=== PATIENT | female | born 1980 | race Caucasian/White ===

== ENCOUNTER → 2017-01-13 | Outpatient (CLI) | payer OTHER ==
[2017-01-13 10:17] LABS: HEMATOCRIT 41.5 % (36.0-47.0); HEMOGLOBIN 14.1 g/dL (12.0-15.5); RED BLOOD COUNT 4.91 x10^6/uL (3.50-5.40); RED CELL DISTRIBUTION WIDTH 12.9 % (11.5-14.5)
[2017-01-13 10:21] LABS: WHITE BLOOD COUNT 5.4 x10^3/uL (4.0-11.0)
[2017-01-13 10:42] LABS: ALBUMIN 4.1 g/dL (3.4-5.0); ALBUMIN/GLOBULIN RATIO 1.2 (1.0-1.7); CALCIUM 9.3 mg/dL (8.5-10.1); CREATININE 0.8 mg/dL (0.6-1.0); GFR 80.3; TOTAL BILIRUBIN 0.5 mg/dL (0.2-1.0); TOTAL PROTEIN 7.5 g/dL (6.4-8.2)
[2017-01-13 10:46] LABS: CHOLESTEROL/HDL RATIO 4.3
[2017-01-13 10:54] LABS: FREE T4 0.95 ng/dL (0.76-1.46)
[2017-01-13 20:14] LABS: HEP A IGM ABDY Negative (Negative)
== END | disposition home or self-care (01) ==
LOC: LAB 09:57
PROVIDERS: ATTEND Nurse Practitioner Family
DX: Z13.228 Encounter for screening for other metabolic disorders (principal)
CPT/HCPCS: 36415; 80053; 80061; 80074; 83036; 84439; 84443; 85027; 86703

== ENCOUNTER → 2017-03-19 | Outpatient (CLI) | payer OTHER ==
[~2017-03-19] MED LIST: IOHEXOL 240 MG/ML 50ML VIAL. PO ONE; IOHEXOL 300 MG/ML 75 ML VIAL IV ONE
--- NOTE | 2017-03-19 13:36 | RAD ---
CT of the abdomen and pelvis with contrast, 03/19/2017: History: Abdominal pain Multidetector CT imaging was performed following oral and IV administration of contrast. The gallbladder is surgically absent. No hepatic abnormality is seen. The pancreas is unremarkable. The spleen is of normal size. The kidneys show no evidence of obstruction or a mass. The abdominal aorta is of normal caliber. No abdominal or pelvic adenopathy is seen. The uterus is unremarkable. There is a moderate amount of stool scattered throughout the colon. The appendix is visualized and shows no abnormality. The small bowel loops are unremarkable. No free air or significant free fluid is identified in the abdomen IMPRESSION: No acute abnormality is identified the abdomen or pelvis. PQRS Compliance Statement: One or more of the following individualized dose reduction techniques were utilized for this examination: 1. Automated exposure control 2. Adjustment of the mA and/or kV according to patient size 3. Use of iterative reconstruction technique
== END | disposition home or self-care (01) ==
LOC: CT 07:58
PROVIDERS: ATTEND Family Medicine
DX: R10.9 Unspecified abdominal pain (principal)
CPT/HCPCS: 74177; Q9966; Q9967

== ENCOUNTER 2017-04-09 09:07 | Emergency (ER) | payer OTHER ==
[~2017-04-09] VITALS: Ht 175.3 cm; Wt 85.3 kg
[2017-04-09 09:21] VITALS: BP 137/87
[2017-04-09] MEDS ORDERED: FAMO20TA5 PO (09:31)
[2017-04-09] MEDS ORDERED: SULF1TAB24 PO (09:31)
[2017-04-09] MEDS ORDERED: PRED50TA PO (09:31)
--- NOTE | 2017-04-09 09:31 | PHYS DOC ---
Past Medical History Past Medical History: No Pertinent History Past Surgical History: No Surgical History Alcohol Use: None Drug Use: None Adult General Chief Complaint Chief Complaint: INSECT BITE HPI HPI Patient is a 36 year old female with no significant medical history who presents with a wasp sting on the left upper extremity that happened on Thursday when she went to check her mail in the mailbox. Patient denies any anaphylactic reaction. Review of Systems Review of Systems Constitutional: Denies fever or chills [] Musculoskeletal: Denies back pain or joint pain [] Integument: a wasp sting on the left upper extremity Neurologic: Denies headache, focal weakness or sensory changes [] Endocrine: Denies polyuria or polydipsia [] Current Medications Current Medications Current Medications Medications (Trade) Dose Ordered Sig/Jeanie Start Time Stop Time Status Last Admin Dose Admin Dexamethasone Sodium Phosphate (Decadron) 10 mg 1X ONCE 04/09/17 10:00 04/09/17 10:01 Diphenhydramine HCl (Benadryl) 25 mg 1X ONCE 04/09/17 10:00 04/09/17 10:01 Diphtheria/ Tetanus/Acell Pertussis (Boostrix) 0.5 ml ONCE ONCE 04/09/17 10:00 04/09/17 10:01 Famotidine (Pepcid) 20 mg 1X ONCE 04/09/17 10:00 04/09/17 10:01 Allergies Allergies Allergies Coded Allergies Type Severity Reaction Last Updated Verified No Known Drug Allergies 03/19/17 No Physical Exam Physical Exam Constitutional: Well developed, well nourished, no acute distress, non-toxic appearance. [] Skin: Left medial biceps with an area of mild erythema consistent with a insect sting. No drainage from the area. No warmth from the area. Back: No tenderness, no CVA tenderness. [] Extremities: No tenderness, no cyanosis, no clubbing, ROM intact, no edema. [] Neurologic: Alert and oriented X 3, normal motor function, normal sensory function, no focal deficits noted. [] Psychologic: Affect normal, judgement normal, mood normal. [] Current Patient Data Vital Signs Vital Signs Date Time Temp Pulse Resp B/P (MAP) Pulse Ox O2 Delivery O2 Flow Rate FiO2 04/09/17 09:21 98.0 77 18 99 Room Air 98.0 EKG EKG [] Radiology/Procedures Radiology/Procedures [] Course & Med Decision Making Course & Med Decision Making Pertinent Labs and Imaging studies reviewed. (See chart for details) Patient is in the ED with a wasp sting on the left upper extremity that happened 4 days ago. Patient was given Decadron, Benadryl, Pepcid and tetanus was updated. She was discharged with prednisone and Benadryl, Pepcid, and Bactrim. Follow-up with the PCP in 1-2 weeks. Dragon Disclaimer Dragon Disclaimer This electronic medical record was generated, in whole or in part, using a voice recognition dictation system. Departure Departure Impression: Primary Impression: Wasp sting Disposition: HOME, SELF-CARE Condition: STABLE Referrals: CHANDRA COX MD (PCP) Follow-up with your doctor in one week Patient Instructions: Bee, Wasp, or Hornet Sting Additional Instructions: You seen for a wasp sting to the left upper extremity. Take Benadryl every 4 hours as tolerated until symptoms have cleared out. If Benadryl is making you sleepy during the day you can take Benadryl during the night and Claritin or Zyrtec during the day. Take Pepcid every day until symptoms are gone. Complete your prednisone and Bactrim. Come back to the ED if symptoms worsen otherwise follow-up with your doctor in 7 days. Scripts Prednisone (PREDNISONE) 50 Mg Tablet 1 TAB PO DAILY, #5 TAB Prov: MARIELLA MORAN APRN 04/09/17 Famotidine (FAMOTIDINE) 20 Mg Tablet 20 MG PO DAILY for 14 Days, #14 TAB Prov: MARIELLA MORAN APRN 04/09/17 Sulfamethoxazole/Trimethoprim (BACTRIM DS TABLET) 1 Each Tablet 1 TAB PO BID, #20 TAB Prov: MARIELLA MORAN APRN 04/09/17 Problem Qualifiers Primary Impression: Wasp sting Encounter type: initial encounter Injury intent: accidental or unintentional Qualified Codes: T63.461A - Toxic effect of venom of wasps, accidental (unintentional), initial encounter MARIELLA MORAN APRN Apr 09, 2017 09:31
[2017-04-09] MEDS ORDERED: diphenhydrAMINE HCL 25 MG CAPSULE PO ONE (10:00)
[2017-04-09] MEDS ORDERED: DEXAMETHASONE SOD PHOS 20 MG/5 ML VIAL. IM ONE (10:00)
[2017-04-09] MEDS ORDERED: DIPHTH,PERTUSS(ACELL),TET TOX 0.5 ML DISP.SYRIN. VAX IM ONE (10:00)
[2017-04-09] MEDS ORDERED: FAMOTIDINE 20 MG TABLET. PO ONE (10:00)
== END 2017-04-09 10:04 | disposition home or self-care (01) ==
LOC: ER 09:07
DX: T63.461A Toxic effect of venom of wasps, accidental (unintentional), initial encounter (principal); Y92.89 Other specified places as the place of occurrence of the external cause
CPT/HCPCS: 90471; 90715; 96372; 99284; J1100; Q0163

== ENCOUNTER 2018-05-08 08:26 | Emergency (ER) | payer OTHER ==
[~2018-05-08] VITALS: Ht 175.3 cm; Wt 85.3 kg
[~2018-05-08 08:26] MED LIST changes: +FAMO20TA5 PO; -IOHEXOL 240 MG/ML 50ML VIAL. PO ONE; -IOHEXOL 300 MG/ML 75 ML VIAL IV ONE; +PRED50TA PO; +SULF1TAB24 PO
[2018-05-08 08:30] VITALS: BP 134/70
[2018-05-08] MEDS ORDERED: SULF1TAB24 PO (08:45)
[2018-05-08] MEDS ORDERED: cefTRIAXone IM 1 GM VIAL IM ONE (08:45)
--- NOTE | 2018-05-08 08:46 | PHYS DOC ---
Past Medical History Past Medical History: No Pertinent History Past Surgical History: Cholecystectomy, , Tonsillectomy Alcohol Use: None Drug Use: None Adult General Chief Complaint Chief Complaint: INSECT BITE HPI HPI Patient is a 37 year old female who presents with an infected insect bite to her right anterior chest. The patient states that it has been worsening greatly over the past 2 days and now has redness and heat extending out around the wound. She denies fever, nausea or vomiting. She has been taking ibuprofen and Tylenol with relief of her pain. Review of Systems Review of Systems Constitutional: Denies fever or chills [] Respiratory: Denies cough or shortness of breath [] Cardiovascular: No additional information not addressed in HPI [] GI: Denies abdominal pain, nausea, vomiting, bloody stools or diarrhea [] : Denies dysuria or hematuria [] Musculoskeletal: Denies back pain or joint pain [] Integument: See history of present illness Neurologic: Denies headache, focal weakness or sensory changes [] Endocrine: Denies polyuria or polydipsia [] All other systems were reviewed and found to be within normal limits, except as documented in this note. Current Medications Current Medications Current Medications Medications (Trade) Dose Ordered Sig/Jeanie Start Time Stop Time Status Last Admin Dose Admin Ceftriaxone Sodium (Rocephin Im) 1 gm 1X ONCE 05/08/18 08:45 05/08/18 08:46 DC Lidocaine HCl (Xylocaine-Mpf 1% 2ml Vial) 2 ml ONCE ONCE 05/08/18 09:00 05/08/18 09:01 Allergies Allergies Allergies Coded Allergies Type Severity Reaction Last Updated Verified No Known Drug Allergies 03/19/17 No Physical Exam Physical Exam Constitutional: Well developed, well nourished, no acute distress, non-toxic appearance. [] Cardiovascular:Heart rate regular rhythm, no murmur [] Lungs & Thorax: Bilateral breath sounds clear to auscultation [] Skin: 3 cm area of erythematous induration with a small blackened center Extremities: No tenderness, no cyanosis, no clubbing, ROM intact, no edema. [] Neurologic: Alert and oriented X 3, normal motor function, normal sensory function, no focal deficits noted. [] Psychologic: Affect normal, judgement normal, mood normal. [] Current Patient Data Vital Signs Vital Signs Date Time Temp Pulse Resp B/P (MAP) Pulse Ox O2 Delivery O2 Flow Rate FiO2 05/08/18 08:30 99.4 69 14 134/70 (91) 98 Room Air 99.4 EKG EKG [] Radiology/Procedures Radiology/Procedures [] Course & Med Decision Making Course & Med Decision Making Pertinent Labs and Imaging studies reviewed. (See chart for details) []The patient was given Rocephin in the emergency department. Dragon Disclaimer Dragon Disclaimer This electronic medical record was generated, in whole or in part, using a voice recognition dictation system. Departure Departure Impression: Primary Impression: Abscess Additional Impression: Cellulitis Disposition: HOME, SELF-CARE Condition: STABLE Referrals: CHANDRA COX MD (PCP) Patient Instructions: Abscess, Cellulitis Additional Instructions: Take the antibiotic as directed. Follow-up with your primary care provider in 3 days if not improving or return to the emergency department if worsening. Use hot compresses several times daily. You may take ibuprofen or Tylenol for pain. Scripts Sulfamethoxazole/Trimethoprim (BACTRIM DS TABLET) 1 Each Tablet 1 TAB PO BID, #20 TAB Prov: JAYME ALEJO APRN 05/08/18 Problem Qualifiers JAYME ALEJO APRN May 08, 2018 08:46
[2018-05-08] MEDS ORDERED: LIDOCAINE 1% PF 2 ML VIAL. INJ ONE (09:00)
== END 2018-05-08 09:20 | disposition home or self-care (01) ==
LOC: ER 08:26
DX: L03.313 Cellulitis of chest wall (principal); L02.213 Cutaneous abscess of chest wall; Z90.49 Acquired absence of other specified parts of digestive tract; Z90.89 Acquired absence of other organs; Z98.890 Other specified postprocedural states
CPT/HCPCS: 96372; 99283; J0696

== ENCOUNTER 2018-06-11 11:02 | Emergency (ER) | payer OTHER ==
[~2018-06-11] VITALS: Ht 170.2 cm; Wt 85.3 kg
[2018-06-11 11:28] VITALS: BP 132/72
[2018-06-11 11:54] LABS: CLARITY,URINE CLEAR; COLOR,URINE ORANGE
[2018-06-11 12:18] LABS: BACTERIA,URINE MODERATE /HPF (0-FEW); SQUAMOUS EPITHELIAL CELL,UR MOD /LPF; WBC,URINE 20-40 /HPF (0-4)
[2018-06-11] MEDS ORDERED: CEPH500T PO (12:36)
--- NOTE | 2018-06-11 12:40 | PHYS DOC ---
Past Medical History Past Medical History: No Pertinent History Past Surgical History: Cholecystectomy, , Tonsillectomy Alcohol Use: None Drug Use: None Adult General Chief Complaint Chief Complaint: PAIN ON URINATION HPI HPI Patient is a 37 year old female who presents to the ER with complaints of dysuria and increased urinary frequency this morning. She denies any fever, back pain, hematuria, irregular vaginal discharge, or odor. She thinks that she has a UTI, so she started taking pyridium this morning with little relief from her symptoms. Review of Systems Review of Systems Constitutional: Denies fever or chills [] GI: Denies abdominal pain, nausea, vomiting, or diarrhea [] : Denies odor or hematuria, reports dysuria and increased frequency Musculoskeletal: Denies back pain or joint pain [] Integument: Denies rash or skin lesions [] Neurologic: Denies headache, focal weakness or sensory changes [] All other systems were reviewed and found to be within normal limits, except as documented in this note. Allergies Allergies Allergies Coded Allergies Type Severity Reaction Last Updated Verified No Known Drug Allergies 03/19/17 No Physical Exam Physical Exam Constitutional: Well developed, well nourished, no acute distress, non-toxic appearance. [] HENT: Normocephalic, atraumatic, bilateral external ears normal, nose normal. [ ] Eyes: PERRLA, conjunctiva normal, no discharge. [] Neck: Normal range of motion, no tenderness, supple, no stridor. [] Skin: Warm, dry, no erythema, no rash. [] Back: No tenderness, no CVA tenderness. [] Extremities: No cyanosis, no clubbing, ROM intact, no edema. [] Neurologic: Alert and oriented X 3, normal motor function, normal sensory function, no focal deficits noted. [] Psychologic: Affect normal, judgement normal, mood normal. [] Current Patient Data Vital Signs Vital Signs Date Time Temp Pulse Resp B/P (MAP) Pulse Ox O2 Delivery O2 Flow Rate FiO2 06/11/18 11:28 98.1 70 16 132/72 (92) 97 Room Air 98.1 Lab Values Laboratory Tests Test 06/11/18 11:26 Urine Collection Type Unknown Urine Color [place] Urine Clarity Clear Urine pH Urine Specific M[place]dy 1.030 Urine Protein mg/dL (NEG-TRACE) Urine Glucose (UA) mg/dL (NEG) Urine Ketones (Stick) mg/dL (NEG) Urine Blood (NEG) Urine Nitrite (NEG) Urine Bilirubin (NEG) Urine Urobilinogen Dipstick mg/dL (0.2 mg/dL) Urine Leukocyte Esterase (NEG) Urine RBC 1-2 /HPF (0-2) Urine WBC 20-40 /HPF (0-4) Urine Squamous Epithelial Cells Mod /LPF Urine Bacteria Moderate /HPF (0-FEW) Urine Mucus Slight /LPF Microbiology 06/11/18 Urine Culture - Final, Complete 06/11/18 Urine Culture Result 1 (JOSE) - Final, Complete EKG EKG [] Radiology/Procedures Radiology/Procedures [] Course & Med Decision Making Course & Med Decision Making Pertinent Labs and Imaging studies reviewed. (See chart for details) dx: UTI UA was positive for bacteria and 20-40 WBCs, prescription written for keflex. Follow up with PCP if sx persist, increase fluids, avoid bladder irritants. Patient verbalized an understanding of home care, medications, follow-up, and return to ED instructions and was in agreement with the plan of care. [] Dragon Disclaimer Dragon Disclaimer This electronic medical record was generated, in whole or in part, using a voice recognition dictation system. Departure Departure Impression: Primary Impression: UTI (urinary tract infection) Disposition: 01 HOME, SELF-CARE Condition: STABLE Referrals: CHANDRA COX MD (PCP) Patient Instructions: Urinary Tract Infection, Bgex-ty-Roma Additional Instructions: Fill prescription and use as directed. Avoid bladder irritants such as caffeine , carbonated fluids, and spicy foot. Increase clear fluids, Follow up with your doctor next week if symptoms persist. Return to ER if symptoms worsen. 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 I was available for consultation as needed during the patient's visit in the emergency department. I agree with the clinical impression, plan, and disposition. Problem Qualifiers Primary Impression: UTI (urinary tract infection) Urinary tract infection type: site unspecified Hematuria presence: without hematuria Qualified Codes: N39.0 - Urinary tract infection, site not specified BOGAVELINO HENSON APRN Jun 11, 2018 12:40 AMY CARROLL DO Jun 14, 2018 03:05
== END 2018-06-11 12:47 | disposition home or self-care (01) ==
LOC: ER 11:02
DX: N39.0 Urinary tract infection, site not specified (principal); Z90.49 Acquired absence of other specified parts of digestive tract; Z90.89 Acquired absence of other organs; Z98.890 Other specified postprocedural states
CPT/HCPCS: 81001; 87086; 99284

== ENCOUNTER → 2018-12-20 | Day surgery (SDC) | payer OTHER ==
[~2018-12-20] MED LIST changes: +CEPH500T PO; +CLON0.5T PO; +FLUO40CA9 PO; +IV RINGERS,LACTATED 1000ML 1,000 ML IV ONE; +IV RINGERS,LACTATED 1000ML 1,000 ML IV SCH; +OMEP20TA8 PO; +POTA10TA12 PO; +PROPOFOL 20 ML IV ONE; +PROPOFOL 40 ML IV ONE; +TRAZ-118 PO
--- NOTE | 2018-12-20 13:35 | PDOC1 ---
History and Physical Date of Admission Date of Admission DATE: 12/20/18 TIME: 13:28 Identification/Chief Complaint Chief Complaint Diarrhea > 5 weeks. Chronic heartburn. Source Source: Chart review, Patient History of Present Illness History of Present Illness 38 y/o female with 5-6 weeks diarrhea, historically negative FOBT, CDT and labs at [facility]. No blood in stools. No travel or exposure history. No recent antibiotic use. Chronic heartburn w/o dysphagia; on PPI for some time. No PUD. S/p eduardo, remotely. No liver,pancreatic history. Past Medical History Past Medical History [facility]. Past Surgical History Past Surgical History: Cholecystectomy, Family History Family History: Other (not pertinent) Social History Smoke: No ALCOHOL: occassional Drugs: None Current Medications Current Medications Current Medications Propofol 40 ml @ As Directed STK-MED ONCE IV ; Start 12/20/18 at 13:20; Stop at 13:21; Status DC Propofol 20 ml @ As Directed STK-MED ONCE IV ; Start 12/20/18 at 13:26; Stop at 13:27; Status DC Active Scripts Active Reported Omeprazole 20 Mg Tablet.dr 1 Tab PO DAILY Potassium Chloride 10 Meq Tablet.er 10 Meq PO DAILY Trazodone Hcl 50 Mg Tablet 1 Tab PO QHS Klonopin (Clonazepam) 0.5 Mg Tablet 1 Tab PO PRN TID PRN Prozac (Fluoxetine Hcl) 40 Mg Capsule 60 Mg PO DAILY Allergies Allergies: Coded Allergies: No Known Drug Allergies (Unverified , 12/20/18) ROS Review of System Otherwise non-contributory. Physical Exam General: Alert, Oriented X3, Cooperative, No acute distress Lungs: Clear to auscultation Heart: S1S2, RRR, no gallops, no murmurs Abdomen: Normal bowel sounds, Soft, No tenderness, No hepatosplenomegaly, No masses Rectal Exam: deferred (to procedure) Extremities: No cyanosis, No edema Skin: No significant lesion Neuro: Normal speech, Strength at 5/5 X4 ext, Normal tone, Sensation intact, Cranial nerves 3-12 NL, Reflexes 2+ Psych/Mental Status: Mental status NL, Mood NL Vitals Vitals See nursing notes. VTE Prophylaxis Ordered VTE Prophylaxis Devices: No VTE Pharmacological Prophylaxi: No Assessment/Plan Assessment/Plan IMP: Chronic (>3 weeks) diarrhea, stool studies negative. Chronic heartburn; at risk for Whelan's. PLAN: colonoscopy and EGD. AMY BUSTOS MD Dec 20, 2018 13:35
[2018-12-20 13:45] LABS: U PREG PATIENT NEGATIVE (NEG)
--- NOTE | 2018-12-20 14:21 | PDOC4 ---
PROCEDURE Procedure Colonoscopy/EGD/biopsies Indication: chronic heartburn/chronic diarrhea Meds: per anesthesia Findings: RENNY--normal --'Scope advanced to cecum. Patchy areas of erythema in sigmoid, mucosa otherwise normal. Large diverticulum, proximal ascending colon. Small internal hemorrhoids noted. Random biopsies from cecum/ascending and rectum. Targeted biopsies from sigmoid. Otherwise normal. E--Healed reflux at 35cm, probably low-grade. G--Non-specific erythema, antrum. Small hiatal hernia. Antral biopsies. D--Normal to second portion. Biopsies second portion. Navid. well. IMP: Diverticulum. Hemorrhoids. Non-specific erythema, sigmoid. Healed reflux w/o Whelan's. Small HH Antral erythema, biopsied. REC: Continue meds, diet as before. Await pathology. F/u with me in 2 weeks. Consider repeat colonoscopy in 10 years. AMY BUSTOS MD Dec 20, 2018 14:20
[2018-12-20 14:45] VITALS: BP 133/79
--- NOTE | 2018-12-21 15:06 | PATHOLOGY ---
[facility] Accession Number: [id number] . 01 Material submitted: . PART A: duodenum - BIOPSY DUODENUM PART B: stomach - BIOPSY ANTRUM PART C: cecum - RANDOM COLON BIOPSY, CECUM TO ASCENDING. Modifiers: ascending PART D: colon - BIOPSY SIGMOID, PATCHY ERYTHEMA. Modifiers: sigmoid PART E: rectum - RECTAL BIOPSY . 01 Clinical history: . Chronic heartburn, diarrhea . 02 Diagnosis: A. Duodenal biopsy: - No significant pathologic abnormalities. . B. Gastric biopsy, antrum: - Congestion and slight chronic inflammation. . C. Random colon biopsies, cecum to ascending colon: - No significant pathologic abnormalities. . D. Colon biopsies, sigmoid colon: - Recent hemorrhage within lamina propria. . E. Colorectal biopsies, rectum: - Incidental hyperplastic polyp. . (JPM:mmmatt; 12/21/2018) [facility]/12/21/2018 . 02 Comment: Sections of the duodenal biopsy reveal segments of duodenal and small intestine mucosa. Where best oriented, the mucosal villi show no sprue-like changes or significant inflammatory changes. Sections of the gastric antral biopsy show congestion and slight chronic inflammation. A properly-controlled immunoperoxidase stain for Helicobacter is negative for Helicobacter organisms. Sections of the random colon biopsy, from cecum to ascending colon, reveal multiple segments of colonic mucosa containing a few mucosal-associated lymphoid aggregates. There is no evidence of a chronic destructive colitis, lymphocytic colitis, or collagenous colitis. Sections of the sigmoid colon biopsy reveal segments of colonic mucosa showing foci of recent hemorrhage within the lamina propria. There is no evidence of an acute infectious colitis, ischemic colitis, chronic destructive colitis, or microscopic colitis. Sections of the rectal biopsy reveal multiple segments of rectal mucosa, one of which shows an incidental hyperplastic polyp. There is no evidence of a chronic destructive colitis, microscopic colitis, infectious colitis, or ischemic colitis. . Special stain performed: Immunoperoxidase stain for Helicobacter on B1. . (JPM:mml; 12/21/2018) . 02 Electronically signed: . Aris Sanchez MD, Pathologist NPI- [id number] . 01 Gross description: . A. Received in formalin labeled "Castalia, Hailee, BX duodenum," are 5 segments of og soft tissue measuring 1.5 x 0.9 x 0.2 cm in aggregate dimensions and ranging from 0.3 to 0.4 cm in maximum dimension. The specimen is submitted entirely in cassette A1. . B. Received in formalin labeled "Bakari, Hailee, BX antrum," is a single segment of og soft tissue measuring 0.7 cm in maximum dimension. The specimen is entirely submitted in cassette B1. . C. Received in formalin labeled "Castalia, Hailee, random colon BX, cecum to ascending," are 7 segments of og soft tissue measuring 1.7 x 1.2 x 0.2 cm in aggregate dimensions and ranging from 0.3 to 0.9 cm in maximum dimension. The specimen is submitted entirely in cassette C1. . D. Received in formalin labeled "Castalia, Hailee, BX sigmoid, patchy erythema," are 3 segments of og soft tissue measuring 0.9 x 0.7 x 0.2 cm in aggregate dimensions and ranging from 0.3 to 0.6 cm in maximum dimension. The specimen is submitted entirely in cassette D1. . E. Received in formalin labeled "Bakari, Hailee, rectal BX," are 5 segments of og soft tissue measuring 1.5 x 0.8 x 0.2 cm in aggregate dimensions and ranging from 0.3 to 0.6 cm in maximum dimension. The specimen is submitted entirely in cassette E1. (TSD; 12/20/2018) TOB/TOB . 02 Pathologist provided ICD-10: K29.50, K31.89, K62.1 . 02 CPT . 232441, 435129, [id number], [id number], [id number], [id number] Specimen Comment: A courtesy copy of this report has been sent to Specimen Comment: [phone], . Specimen Comment: Report sent to DR BUSTOS / DR COX Performed at: [address] [place] [address] [address], [place], [place] [id number] MD Woody Zavaleta MD Phone: [phone] Performed at: [address] [id number] MD Aris Sanchez MD Phone: [phone]
== END | disposition home or self-care (01) ==
LOC: SURG 13:03
PROVIDERS: ATTEND Internal Medicine Gastroenterology
DX: K62.1 Rectal polyp (principal); K57.30 Diverticulosis of large intestine without perforation or abscess without bleeding; K64.0 First degree hemorrhoids; K21.0 Gastro-esophageal reflux disease with esophagitis; K44.9 Diaphragmatic hernia without obstruction or gangrene; K29.50 Unspecified chronic gastritis without bleeding; K31.89 Other diseases of stomach and duodenum; K63.89 Other specified diseases of intestine; Z72.89 Other problems related to lifestyle; Z79.899 Other long term (current) drug therapy; Z90.49 Acquired absence of other specified parts of digestive tract; Z98.890 Other specified postprocedural states
CPT/HCPCS: 43239; 45380; 81025; 88305; 88342; J2704

== ENCOUNTER → 2019-06-07 | Outpatient (CLI) | payer OTHER ==
[2018-12-20 14:45] VITALS: BP 133/79
[~2019-06-07] MED LIST changes: -IV RINGERS,LACTATED 1000ML 1,000 ML IV ONE; -IV RINGERS,LACTATED 1000ML 1,000 ML IV SCH; -PROPOFOL 20 ML IV ONE; -PROPOFOL 40 ML IV ONE
[2019-06-07 09:49] LABS: ALBUMIN 3.4 g/dL (3.4-5.0); CALCIUM 8.7 mg/dL (8.5-10.1); CHOLESTEROL/HDL RATIO 4.4; CREATININE 0.8 mg/dL (0.6-1.0); GFR 79.4; POTASSIUM 4.1 mmol/L (3.5-5.1); TOTAL BILIRUBIN 0.2 mg/dL (0.2-1.0); TOTAL PROTEIN 6.9 g/dL (6.4-8.2); URIC ACID 5.3 mg/dL (2.6-6.0)
[2019-06-07 09:50] LABS: BASO % 1 % (0-3); EOS # 0.2 x10^3/uL (0.0-0.7); EOS % 3 % (0-3); HEMATOCRIT 37.8 % (36.0-47.0); LYMPH # 2.3 x10^3/uL (1.0-4.8); LYMPH % 35 % (24-48); MEAN CORPUSCULAR HEMOGLOBIN 29 pg (25-35); MEAN CORPUSCULAR HGB CONC 34 g/dL (31-37); MEAN CORPUSCULAR VOLUME 85 fL (79-100); MONO # 0.5 x10^3/uL (0.0-1.1); MONO % 7 % (0-9); NEUT # 3.6 x10^3/uL (1.8-7.7); NEUT % 55 % (31-73); PLATELET COUNT 223 x10^3/uL (140-400); RED BLOOD COUNT 4.47 x10^6/uL (3.50-5.40); RED CELL DISTRIBUTION WIDTH 15.2 % (11.5-14.5); WHITE BLOOD COUNT 6.6 x10^3/uL (4.0-11.0)
[2019-06-07 10:00] LABS: FREE T4 0.8 ng/dL (0.76-1.46); THYROID STIM HORMONE (TSH) 1.37 uIU/mL (0.358-3.74)
== END | disposition home or self-care (01) ==
LOC: LAB 09:10
PROVIDERS: ATTEND Nurse Practitioner Family
DX: Z13.228 Encounter for screening for other metabolic disorders (principal); Z77.21 Contact with and (suspected) exposure to potentially hazardous body fluids
CPT/HCPCS: 36415; 80053; 80061; 82306; 84439; 84443; 84550; 85025; 85651; 86703; 86705; 86709; 86803; 87340

== ENCOUNTER 2020-01-04 11:01 | Inpatient (IN) | payer OTHER ==
[~2020-01-04] VITALS: Ht 175.3 cm; Wt 113.0 kg
[~2020-01-04 11:01] MED LIST changes: -POTA10TA12 PO; +POTASSIUM CHLO10 ME1 PO
[2020-01-04] MEDS ORDERED: IV NORMAL SALINE 1000ML BAG 1,000 ML IV SCH (11:31)
--- NOTE | 2020-01-04 11:38 | PHYS DOC ---
Past Medical History Past Medical History: No Pertinent History Past Surgical History: Cholecystectomy, , Tonsillectomy Smoking Status: Former Smoker Alcohol Use: Heavy Drug Use: None Social History Narrative: States has not had intercourse in years General Adult EDM: Chief Complaint: ABDOMINAL PAIN HPI: HPI: Patient is a 39-year-old female presents to the emergency department for evaluation. She states that she has had problems with her stomach for over a year, with frequent episodes of vomiting and diarrhea, but states that over the past few days her symptoms have become worse. Over the past 3 to 4 weeks, her lower abdominal discomfort, and diarrhea have become worse, and she has had persistent vomiting. She denies any fevers or chills, bloody emesis or stools, recent antibiotic use, or recent travel. She has been tested for C. difficile in the past and tested negative. She denies any chest pain or shortness of breath. There are no alleviating or exacerbating factors to her symptoms. She states she does drink alcohol, up to 15 beers a day, about 4 nights a week, when she is not working. Review of Systems: Review of Systems: Constitutional: Denies fever or chills. [] Eyes: Denies change in visual acuity. [] HENT: Denies nasal congestion or sore throat. [] Respiratory: Denies cough or shortness of breath. [] Cardiovascular: Denies chest pain or edema. [] GI: As per HPI [] : Denies dysuria. [] Musculoskeletal: Denies back pain or joint pain. [] Integument: Denies rash. [] Neurologic: Denies headache, focal weakness or sensory changes. [] Endocrine: Denies polyuria or polydipsia. [] Lymphatic: Denies swollen glands. [] Psychiatric: Denies depression or anxiety. [] Heart Score: Risk Factors: Risk Factors: DM, Current or recent (<one month) smoker, HTN, HLP, family history of CAD, obesity. Risk Scores: Score 0 - 3: 2.5% MACE over next 6 weeks - Discharge Home Score 4 - 6: 20.3% MACE over next 6 weeks - Admit for Clinical Observation Score 7 - 10: 72.7% MACE over next 6 weeks - Early Invasive Strategies Current Medications: Current Medications Medications (Trade) Dose Ordered Sig/Jeanie Start Time Stop Time Status Last Admin Dose Admin Morphine Sulfate (Morphine Sulfate) 4 mg PRN Q15MIN PRN 01/04/20 11:45 01/05/20 11:44 Ondansetron HCl (Zofran) 4 mg 1X ONCE 01/04/20 11:45 01/04/20 11:46 Sodium Chloride 1,000 ml @ 1,000 mls/hr Q1H 01/04/20 11:31 01/04/20 12:30 Allergies: Allergies: Allergies Coded Allergies Type Severity Reaction Last Updated Verified No Known Drug Allergies 12/20/18 No Physical Exam: PE: PHYSICAL EXAM: CONSTITUTIONAL: Well developed, well nourished HEAD: normocephalic, atraumatic EENT: PERRL, EOMI. Conjunctivae normal color, sclerae non-icteric; moist mucous membranes. NECK: Supple, non-tender; no meningismus. LUNGS: Lungs CTA, breathing even and unlabored. Normal air movement. HEART: Regular rate and rhythm, no murmur CHEST: No deformity; non-tender ABDOMEN: The abdomen is soft, there is mild diffuse tenderness to palpation to the entire abdomen without focal tenderness, rebound, or guarding, no masses or bruits. EXTREM: Normal ROM; no deformity, no calf tenderness. Normal pulses palpable in all extremities. There is no pedal edema. SKIN: No rash; no diaphoresis NEURO: Alert; normal speech and cognition; CN's grossly intact; strength grossly intact without focal deficit. BACK: No CVA TTP. PELVIC EXAM: Normal external genitalia. There is a trace amount of thin whitish vaginal discharge,There is no cervical motion tenderness, or definite focal adnexal tenderness. Exam was performed in the presence of the patient's nurse, Donna. Current Patient Data: Labs: Laboratory Tests Test 01/04/20 11:00 01/04/20 11:16 01/04/20 11:23 Urine Collection Type Unknown Urine Color Yellow Urine Clarity Hazy Urine pH 6.0 Urine Specific [place] 1.025 Urine Protein 30 mg/dL Urine Glucose (UA) Negative mg/dL Urine Ketones (Stick) Trace mg/dL Urine Blood Negative Urine Nitrite Negative Urine Bilirubin Small Urine Urobilinogen Dipstick 0.2 mg/dL Urine Leukocyte Esterase Moderate Urine RBC Occ /HPF Urine WBC 11-20 /HPF Urine Squamous Epithelial Cells Many /LPF Urine Bacteria Many /HPF Urine Mucus Mod /LPF White Blood Count 6.9 x10^3/uL Red Blood Count 4.98 x10^6/uL Hemoglobin 13.9 g/dL Hematocrit 42.0 % Mean Corpuscular Volume 84 fL Mean Corpuscular Hemoglobin 28 pg Mean Corpuscular Hemoglobin Concent 33 g/dL Red Cell Distribution Width 14.7 % Platelet Count 231 x10^3/uL Neutrophils (%) (Auto) 61 % Lymphocytes (%) (Auto) 27 % Monocytes (%) (Auto) 9 % Eosinophils (%) (Auto) 2 % Basophils (%) (Auto) 1 % Neutrophils # (Auto) 4.2 x10^3/uL Lymphocytes # (Auto) 1.9 x10^3/uL Monocytes # (Auto) 0.6 x10^3/uL Eosinophils # (Auto) 0.2 x10^3/uL Basophils # (Auto) 0.1 x10^3/uL Sodium Level 139 mmol/L Potassium Level 3.5 mmol/L Chloride Level 102 mmol/L Carbon Dioxide Level 21 mmol/L Anion Gap 16 Blood Urea Nitrogen 11 mg/dL Creatinine 1.0 mg/dL Estimated GFR (Cockcroft-Gault) 61.1 BUN/Creatinine Ratio 11 Glucose Level 117 mg/dL Calcium Level 9.0 mg/dL Magnesium Level 1.6 mg/dL Total Bilirubin 0.5 mg/dL Aspartate Amino Transf (AST/SGOT) 48 U/L Alanine Aminotransferase (ALT/SGPT) 55 U/L Alkaline Phosphatase 91 U/L Troponin I Quantitative < 0.017 ng/mL Total Protein 7.3 g/dL Albumin 3.8 g/dL Albumin/Globulin Ratio 1.1 Lipase 69 U/L Bedside Urine HCG, Qualitative Hcg negative Current Medications Medications (Trade) Dose Ordered Sig/Jeanie Route PRN Reason Start Time Stop Time Status Last Admin Dose Admin Morphine Sulfate (Morphine Sulfate) 4 mg PRN Q15MIN PRN IV/SQ PAIN GREATER THAN 3/10 01/04/20 11:45 01/05/20 11:44 01/04/20 13:45 Sodium Chloride 1,000 ml @ 1,000 mls/hr Q1H IV 01/04/20 11:31 01/04/20 12:30 DC 01/04/20 11:52 Ondansetron HCl (Zofran) 4 mg 1X ONCE IVP 01/04/20 11:45 01/04/20 11:46 DC 01/04/20 11:52 Lorazepam (Ativan Inj) 1 mg 1X ONCE IVP 01/04/20 13:00 01/04/20 13:01 DC 01/04/20 13:00 Multi-Ingredient Mouthwash/Gargle (Gi Cocktail) 20 ml 1X ONCE SWSW 01/04/20 13:00 01/04/20 13:01 DC 01/04/20 12:59 Dicyclomine HCl (Bentyl) 20 mg 1X ONCE IM 01/04/20 13:30 01/04/20 13:31 DC 01/04/20 13:45 Iohexol (Omnipaque 300 Mg/ml) 75 ml 1X ONCE IV 01/04/20 13:45 01/04/20 13:46 DC 01/04/20 13:59 Info (CONTRAST GIVEN -- Rx MONITORING) 1 each PRN DAILY PRN MC SEE COMMENTS 01/04/20 13:45 01/06/20 13:44 Magnesium Sulfate/ Dextrose 100 ml @ 100 mls/hr 1X ONCE IV 01/04/20 14:00 01/04/20 14:59 DC 01/04/20 14:57 Hydromorphone HCl (Dilaudid) 0.5 mg 1X ONCE IV 01/04/20 14:45 01/04/20 14:46 DC 01/04/20 14:55 Laboratory Tests Test 01/04/20 11:23 POC Urine HCG, Qualitative Hcg negative (Negative) EKG: EKG: [] Normal sinus rhythm with a normal rate, normal axis, normal intervals, there are no acute ischemic ST/T changes. Radiology/Procedures: Radiology/Procedures: PROCEDURE: CT ABD PELV W/ IV CONTRST ONLY CT abdomen and pelvis with contrast History: Abdominal pain Technique: After the administration of intravenous contrast, CT imaging was performed of the abdomen and pelvis. No oral contrast was given as per request. Multiplanar images are reviewed. Exposure: One or more of the following individualized dose reduction techniques were utilized for this examination: 1. Automated exposure control 2. Adjustment of the mA and/or kV according to patient size 3. Use of iterative reconstruction technique. Comparison: March 19, 2017 Findings: There is some motion degradation. There is no significant abnormality of the visualized lung bases. There is no significant abnormality of the liver, spleen, pancreas, adrenal glands. Both kidneys enhance without hydronephrosis. There is again small focus of fat density of the anterior, inferior right kidney about 0.7 cm in size. There has been cholecystectomy. Accurate evaluation of bowel is limited without oral contrast. There is no significant inflammatory change adjacent to the bowel. There is no evidence of bowel obstruction, free fluid, or free air. . Normal caliber appendix is visualized without adjacent inflammatory-type change. There are a couple of foci of heterogeneity of the left adnexa, some foci of somewhat heterogeneous hyperdensity or enhancement, largest posteriorly about 1.4 cm and more anterior focus about 1.2 cm mild internal hyperdensity. There is likely mild free fluid of the right adnexal region although difficult to exclude slightly dilated right fallopian tube. There is degree of L4-5 degenerative disc disease. There is severe lumbar facet degenerative change. Impression: 1. There is no CT evidence of acute appendicitis. 2. A couple of foci of heterogeneous density of the left adnexa may be component of partially collapsed cysts, difficult to exclude small solid component in area of enhancement. There is probable mild dependent free fluid in the right adnexal region, component of slightly dilated right fallopian tube (hydrosalpinx) not excluded. 3. There is again focus of fat density of the anterior, inferior right kidney as may be seen with small angiomyolipoma. [] PROCEDURE: PELVIS W/TV PELVIS W/TV History: Pelvic pain. Abnormal CT. Comparison: CT January 04, 2020. Technique: Grayscale and color Doppler imaging of the pelvis was performed using transabdominal and transvaginal technique. Findings: The uterus measures 10.0 x 6.0 x 6.0 cm in length. Uterus has an unremarkable appearance. Nabothian cysts noted. The endometrial stripe measures 1.3 cm within normal range depending on phase of menstruation. Right ovary measures 3.2 x 1.5 x 1.8 cm. Left ovary measures 3.9 x 3.1 x 3.2 cm. Complex left ovarian follicle measures 1.5 cm. Normal Doppler flow to the ovaries. Small free fluid adjacent to the right ovary. IMPRESSION: 1. Complex left ovarian follicle, may represent hemorrhagic follicle. 2. Small pelvic free fluid. Course & Med Decision Making: Course & Med Decision Making Pertinent Labs and Imaging studies reviewed. (See chart for details) [] 2:50 PM: The patient has been reassessed several times and is still having ongoing pain. She has been given numerous doses of pain medication without significant improvement in her pain, although she has had some transient relief. Her pain is more abdominal than pelvic but she does have some abnormal pelvic findings on CT, ultrasound will be obtained. Pelvic examination was just perfor med. 4:10 PM: The patient's condition remains stable, However, although her pain is improved, she is still having pain and does not want to go home, because of the intractable pain. I discussed the case with the hospitalist who will admit the patient for further evaluation and treatment. Sujata Disclaimer: Sujata Disclaimer: This electronic medical record was generated, in whole or in part, using a voice recognition dictation system. Departure Departure Impression: Primary Impression: Intractable abdominal pain Disposition: ADMITTED INPATIENT Admitting Physician: GOGO Condition: STABLE Referrals: CHANDRA COX MD (PCP) KT BELLO MD Jan 04, 2020 11:38
[2020-01-04 11:39] LABS: BASO # 0.1 x10^3/uL (0.0-0.2); BASO % 1 % (0-3); EOS # 0.2 x10^3/uL (0.0-0.7); EOS % 2 % (0-3); HEMOGLOBIN 13.9 g/dL (12.0-15.5); LYMPH # 1.9 x10^3/uL (1.0-4.8); LYMPH % 27 % (24-48); MEAN CORPUSCULAR HEMOGLOBIN 28 pg (25-35); MEAN CORPUSCULAR HGB CONC 33 g/dL (31-37); MEAN CORPUSCULAR VOLUME 84 fL (79-100); MONO # 0.6 x10^3/uL (0.0-1.1); MONO % 9 % (0-9); NEUT # 4.2 x10^3/uL (1.8-7.7); NEUT % 61 % (31-73); PLATELET COUNT 231 x10^3/uL (140-400); RED BLOOD COUNT 4.98 x10^6/uL (3.50-5.40); RED CELL DISTRIBUTION WIDTH 14.7 % (11.5-14.5); WHITE BLOOD COUNT 6.9 x10^3/uL (4.0-11.0)
[2020-01-04 11:40] LABS: BILIRUBIN,URINE SMALL (NEG); NITRITE,URINE NEGATIVE (NEG); PROTEIN,URINE 30 mg/dL (NEG-TRACE); UROBILINOGEN,URINE 0.2 mg/dL (0.2 mg/dL)
[2020-01-04] MEDS ORDERED: ONDANSETRON PF 4 MG/2 ML VIAL. IVP ONE (11:45)
--- NOTE | 2020-01-04 11:48 | EKG ---
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
[2020-01-04 11:53] LABS: GFR 61.1; POTASSIUM 3.5 mmol/L (3.5-5.1)
[2020-01-04] MEDS: MORPHINE SULFATE 4 MG/ML VIAL. IV/SQ PRN ×3 (11:54→13:45)
[2020-01-04 11:58] LABS: CLARITY,URINE HAZY; COLOR,URINE YELLOW
[2020-01-04 12:00] LABS: BACTERIA,URINE MANY /HPF (0-FEW); SQUAMOUS EPITHELIAL CELL,UR MANY /LPF
[2020-01-04 12:01] LABS: ALBUMIN 3.8 g/dL (3.4-5.0); ALBUMIN/GLOBULIN RATIO 1.1 (1.0-1.7); MAGNESIUM 1.6 mg/dL (1.8-2.4); TOTAL BILIRUBIN 0.5 mg/dL (0.2-1.0); TOTAL PROTEIN 7.3 g/dL (6.4-8.2)
[2020-01-04 12:02] LABS: RBC,URINE OCC /HPF (0-2)
[2020-01-04] MEDS ORDERED: LIDO:MAALOX 1:1 20 ML SINGLE DOSE. SWSW ONE (13:00)
[2020-01-04] MEDS ORDERED: DICYCLOMINE 20 MG/2 ML VIAL. IM ONE (13:30)
[2020-01-04] MEDS ORDERED: IOHEXOL 300 MG/ML 100ML VIAL. IV ONE (13:45)
[2020-01-04] MEDS ORDERED: CONTRAST GIVEN. MC PRN (13:45)
[2020-01-04] MEDS ORDERED: MAGNESIUM SULFATE 1GM 100 ML IV ONE (14:00)
--- NOTE | 2020-01-04 14:21 | RAD ---
CT abdomen and pelvis with contrast History: Abdominal pain Technique: After the administration of intravenous contrast, CT imaging was performed of the abdomen and pelvis. No oral contrast was given as per request. Multiplanar images are reviewed. Exposure: One or more of the following individualized dose reduction techniques were utilized for this examination: 1. Automated exposure control 2. Adjustment of the mA and/or kV according to patient size 3. Use of iterative reconstruction technique. Comparison: March 19, 2017 Findings: There is some motion degradation. There is no significant abnormality of the visualized lung bases. There is no significant abnormality of the liver, spleen, pancreas, adrenal glands. Both kidneys enhance without hydronephrosis. There is again small focus of fat density of the anterior, inferior right kidney about 0.7 cm in size. There has been cholecystectomy. Accurate evaluation of bowel is limited without oral contrast. There is no significant inflammatory change adjacent to the bowel. There is no evidence of bowel obstruction, free fluid, or free air. . Normal caliber appendix is visualized without adjacent inflammatory-type change. There are a couple of foci of heterogeneity of the left adnexa, some foci of somewhat heterogeneous hyperdensity or enhancement, largest posteriorly about 1.4 cm and more anterior focus about 1.2 cm mild internal hyperdensity. There is likely mild free fluid of the right adnexal region although difficult to exclude slightly dilated right fallopian tube. There is degree of L4-5 degenerative disc disease. There is severe lumbar facet degenerative change. Impression: 1. There is no CT evidence of acute appendicitis. 2. A couple of foci of heterogeneous density of the left adnexa may be component of partially collapsed cysts, difficult to exclude small solid component in area of enhancement. There is probable mild dependent free fluid in the right adnexal region, component of slightly dilated right fallopian tube (hydrosalpinx) not excluded. 3. There is again focus of fat density of the anterior, inferior right kidney as may be seen with small angiomyolipoma. Electronically signed by: Panfilo Walker MD (01/04/2020 2:18 PM) [id number]
[2020-01-04] MEDS ORDERED: HYDROmorphone 2 MG/ML VIAL IV ONE (14:45)
--- NOTE | 2020-01-04 15:45 | RAD ---
PELVIS W/TV History: Pelvic pain. Abnormal CT. Comparison: CT January 04, 2020. Technique: Grayscale and color Doppler imaging of the pelvis was performed using transabdominal and transvaginal technique. Findings: The uterus measures 10.0 x 6.0 x 6.0 cm in length. Uterus has an unremarkable appearance. Nabothian cysts noted. The endometrial stripe measures 1.3 cm within normal range depending on phase of menstruation. Right ovary measures 3.2 x 1.5 x 1.8 cm. Left ovary measures 3.9 x 3.1 x 3.2 cm. Complex left ovarian follicle measures 1.5 cm. Normal Doppler flow to the ovaries. Small free fluid adjacent to the right ovary. IMPRESSION: 1. Complex left ovarian follicle, may represent hemorrhagic follicle. 2. Small pelvic free fluid. Electronically signed by: Ranjit Corea DO (01/04/2020 3:42 PM) [id number]
[2020-01-04] MEDS ORDERED: DOCUSATE SODIUM 100 MG CAPSULE. PO PRN (16:45)
[2020-01-04] MEDS ORDERED: ACETAMINOPHEN 325 MG TABLET. PO PRN (16:45)
[2020-01-04] MEDS ORDERED: diphenhydrAMINE 50 MG/ML VIAL IVP PRN (16:45)
[2020-01-04] MEDS ORDERED: ALBUTEROL SULFATE 2.5 MG/3 ML NEBU. NEB PRN (16:45)
[2020-01-04] MEDS ORDERED: guaiFENesin ORAL 200 MG/10 ML LIQUID. PO PRN (16:45)
[2020-01-04] MEDS ORDERED: cloNIDine HCL 0.1 MG TABLET PO PRN (16:45)
[2020-01-04] MEDS ORDERED: ONDANSETRON PF 4 MG/2 ML VIAL. IV PRN (16:45)
[2020-01-04] MEDS ORDERED: ZOLPIDEM 5 MG TABLET. PO PRN (16:45)
[2020-01-04] MEDS ORDERED: FLUO40CA9 PO (17:47)
[2020-01-04] MEDS ORDERED: PANT40TA77 PO (17:47)
[2020-01-04] MEDS: IV NORMAL SALINE 1000ML BAG 1,000 ML IV SCH (18:41)
[2020-01-04 19:00] VITALS: BP 133/79
[2020-01-04] MEDS ORDERED: DICYCLOMINE HCL 10 MG CAPSULE PO PRN (19:30)
[2020-01-04] MEDS ORDERED: LIDO:MAALOX 1:1 20 ML SINGLE DOSE. PO PRN (19:30)
[2020-01-04] MEDS: MORPHINE SULFATE 2 MG/ML VIAL. IV PRN (19:59)
[2020-01-04] MEDS: LORazepam 0.5 MG TABLET PO PRN (20:39)
[2020-01-04] MEDS: traZODone 50 MG TABLET. PO SCH (20:39)
--- NOTE | 2020-01-04 21:39 | PDOC1 ---
History and Physical Date of Admission Date of Admission 01/04/2020 Identification/Chief Complaint Chief Complaint I thought I had pancreatitis Source Source: Patient History of Present Illness History of Present Illness Patient is a 39 year old female with no significant past medical history other than reflux disease for which she has been taking Protonix for more than 2 months. now. Patient describes the pain as a sharp sensation sometimes "crampy" in nature over her lower abdomen, related to alcohol intake. Patient deneis association with food intake she has not had dietary transgression, She denies weight loss no hematemesis or any other alarming signs. Patient this morning had an exacerbation of her discomfort which had started on Thursday after drinking alcoholic beverages. She denies sick contacts, no alleviating factors, she denies excess NSAIDs use, she denies weight loss no changes n the caliber of her stools. She denies headache shortness of breath no urinary symptoms no other complaints, her lab work was discussed in detail as well as results of her imaging studies. She sometimes refers having pain with her menses which she is about to start. She has regular menses every 30 days but she refers having heavy menses. They last more or less 5 days. She is being admitted fo symptoms control and assessment of her chronic pain. Past Medical History Cardiovascular: No pertinent hx Pulmonary: No pertinent hx GI: GERD Past Surgical History Past Surgical History: No pertinent history Social History Smoke: No ALCOHOL: occassional Drugs: None Current Problem List Problem List Problems Medical Problems: (1) Intractable abdominal pain Status: Acute Current Medications Current Medications Current Medications Medications (Trade) Dose Ordered Sig/Jeanie Start Time Stop Time Status Last Admin Dose Admin Acetaminophen (Tylenol) 650 mg PRN Q4HRS PRN 01/04/20 16:45 Albuterol Sulfate (Ventolin Neb Soln) 2.5 mg PRN Q4HRS PRN 01/04/20 16:45 Clonazepam (KlonoPIN) 0.5 mg PRN TID PRN 01/04/20 16:45 Clonidine HCl (Catapres) 0.1 mg PRN Q6HRS PRN 01/04/20 16:45 Dicyclomine HCl (Bentyl) 10 mg PRN Q6HRS PRN 01/04/20 19:30 Diphenhydramine HCl (Benadryl) 25 mg PRN Q4HRS PRN 01/04/20 16:45 Docusate Sodium (Colace) 100 mg PRN BID PRN 01/04/20 16:45 Fluoxetine HCl (PROzac) 40 mg DAILY 01/05/20 09:00 Guaifenesin (Robitussin) 200 mg PRN Q4HRS PRN 01/04/20 16:45 Hydromorphone HCl (Dilaudid) 0.5 mg 1X ONCE 01/04/20 14:45 01/04/20 14:46 DC 01/04/20 14:55 0.5 MG Info (CONTRAST GIVEN -- Rx MONITORING) 1 each PRN DAILY PRN 01/04/20 13:45 01/06/20 13:44 Iohexol (Omnipaque 300 Mg/ml) 75 ml 1X ONCE 01/04/20 13:45 01/04/20 13:46 DC 01/04/20 13:59 75 ML Lorazepam (Ativan Inj) 1 mg 1X ONCE 01/04/20 13:00 01/04/20 13:01 DC 01/04/20 13:00 1 MG Lorazepam (Ativan) 0.5 mg PRN Q4HRS PRN 01/04/20 16:45 01/04/20 20:39 0.5 MG Magnesium Sulfate/ Dextrose 100 ml @ 100 mls/hr 1X ONCE 01/04/20 14:00 01/04/20 14:59 DC 01/04/20 14:57 100 MLS/HR Morphine Sulfate (Morphine Sulfate) 2 mg PRN Q4HRS PRN 01/04/20 19:30 01/04/20 19:59 2 MG Multi-Ingredient Mouthwash/Gargle (Gi Cocktail) 20 ml PRN QID PRN 01/04/20 19:30 Ondansetron HCl (Zofran) 4 mg PRN Q4HRS PRN 01/04/20 16:45 Pantoprazole Sodium (Protonix) 40 mg DAILYAC 01/05/20 07:30 UNV Potassium Chloride (Klor-Con) 10 meq DAILYWBKFT 01/05/20 08:00 Sodium Chloride 1,000 ml @ 100 mls/hr Q10H 01/04/20 16:38 01/04/20 18:41 100 MLS/HR Trazodone HCl (Desyrel) 50 mg QHS 01/04/20 21:00 01/04/20 20:39 50 MG Zolpidem Tartrate (Ambien) 5 mg PRN QHS PRN 01/04/20 16:45 Allergies Allergies Allergies Coded Allergies Type Severity Reaction Last Updated Verified No Known Drug Allergies 12/20/18 No ROS Review of System CONSTITUTIONAL: No fever or chills EYES: No recent changes SKIN: No rash or itching CARDIOVASCULAR: No chest pain, syncope, palpitations, or edema RESPIRATORY: No SOB or cough GASTROINTESTINAL: No nausea, vomiting or abdominal pain NEUROLOGICAL: No headaches or weakness ENDOCRINE: No cold or heat intolerance GENITOURINARY: No urgency or frequency of urination MUSCULOSKELETAL: No back pain or joint pain LYMPHATICS: No enlarged lymph nodes PSYCHIATRIC: No anxiety or depression Physical Exam Physical Exam GEN.: No apparent distress. Alert and oriented. HEENT: Head is normocephalic, atraumatic NECK: Supple. LUNGS: Clear to auscultation. HEART: RRR, S1, S2 present. Peripheral pulses intact ABDOMEN: Soft, nontender. Positive bowel sounds. EXTREMITIES: Without any cyanosis. NEUROLOGIC: Normal speech, normal tone PSYCHIATRIC: Normal affect, normal mood. SKIN: No ulcerations Vitals Vitals Vital Signs Date Time Temp Pulse Resp B/P (MAP) Pulse Ox O2 Delivery O2 Flow Rate FiO2 01/04/20 20:35 Room Air 01/04/20 19:00 98.2 69 18 133/79 (97) 97 98.2 Labs Labs Laboratory Tests Test 01/04/20 11:00 01/04/20 11:16 01/04/20 11:23 Urine Collection Type Unknown Urine Color Yellow Urine Clarity Hazy Urine pH 6.0 (<5.0-8.0) Urine Specific [place] 1.025 (1.000-1.030) Urine Protein 30 mg/dL (NEG-TRACE) Urine Glucose (UA) Negative mg/dL (NEG) Urine Ketones (Stick) Trace mg/dL (NEG) Urine Blood Negative (NEG) Urine Nitrite Negative (NEG) Urine Bilirubin Small (NEG) Urine Urobilinogen Dipstick 0.2 mg/dL (0.2 mg/dL) Urine Leukocyte Esterase Moderate (NEG) Urine RBC Occ /HPF (0-2) Urine WBC 11-20 /HPF (0-4) Urine Squamous Epithelial Cells Many /LPF Urine Bacteria Many /HPF (0-FEW) Urine Mucus Mod /LPF White Blood Count 6.9 x10^3/uL (4.0-11.0) Red Blood Count 4.98 x10^6/uL (3.50-5.40) Hemoglobin 13.9 g/dL (12.0-15.5) Hematocrit 42.0 % (36.0-47.0) Mean Corpuscular Volume 84 fL (79-100) Mean Corpuscular Hemoglobin 28 pg (25-35) Mean Corpuscular Hemoglobin Concent 33 g/dL (31-37) Red Cell Distribution Width 14.7 % (11.5-14.5) Platelet Count 231 x10^3/uL (140-400) Neutrophils (%) (Auto) 61 % (31-73) Lymphocytes (%) (Auto) 27 % (24-48) Monocytes (%) (Auto) 9 % (0-9) Eosinophils (%) (Auto) 2 % (0-3) Basophils (%) (Auto) 1 % (0-3) Neutrophils # (Auto) 4.2 x10^3/uL (1.8-7.7) Lymphocytes # (Auto) 1.9 x10^3/uL (1.0-4.8) Monocytes # (Auto) 0.6 x10^3/uL (0.0-1.1) Eosinophils # (Auto) 0.2 x10^3/uL (0.0-0.7) Basophils # (Auto) 0.1 x10^3/uL (0.0-0.2) Sodium Level 139 mmol/L (136-145) Potassium Level 3.5 mmol/L (3.5-5.1) Chloride Level 102 mmol/L (98-107) Carbon Dioxide Level 21 mmol/L (21-32) Anion Gap 16 (6-14) Blood Urea Nitrogen 11 mg/dL (7-20) Creatinine 1.0 mg/dL (0.6-1.0) Estimated GFR (Cockcroft-Gault) 61.1 BUN/Creatinine Ratio 11 (6-20) Glucose Level 117 mg/dL (70-99) Calcium Level 9.0 mg/dL (8.5-10.1) Magnesium Level 1.6 mg/dL (1.8-2.4) Total Bilirubin 0.5 mg/dL (0.2-1.0) Aspartate Amino Transf (AST/SGOT) 48 U/L (15-37) Alanine Aminotransferase (ALT/SGPT) 55 U/L (14-59) Alkaline Phosphatase 91 U/L (46-116) Troponin I Quantitative < 0.017 ng/mL (0.000-0.055) Total Protein 7.3 g/dL (6.4-8.2) Albumin 3.8 g/dL (3.4-5.0) Albumin/Globulin Ratio 1.1 (1.0-1.7) Lipase 69 U/L (73-393) Bedside Urine HCG, Qualitative Hcg negative (Negative) Laboratory Tests Test 01/04/20 11:00 01/04/20 11:16 01/04/20 11:23 Urine Collection Type Unknown Urine Color Yellow Urine Clarity Hazy Urine pH 6.0 (<5.0-8.0) Urine Specific [place] 1.025 (1.000-1.030) Urine Protein 30 mg/dL (NEG-TRACE) Urine Glucose (UA) Negative mg/dL (NEG) Urine Ketones (Stick) Trace mg/dL (NEG) Urine Blood Negative (NEG) Urine Nitrite Negative (NEG) Urine Bilirubin Small (NEG) Urine Urobilinogen Dipstick 0.2 mg/dL (0.2 mg/dL) Urine Leukocyte Esterase Moderate (NEG) Urine RBC Occ /HPF (0-2) Urine WBC 11-20 /HPF (0-4) Urine Squamous Epithelial Cells Many /LPF Urine Bacteria Many /HPF (0-FEW) Urine Mucus Mod /LPF White Blood Count 6.9 x10^3/uL (4.0-11.0) Red Blood Count 4.98 x10^6/uL (3.50-5.40) Hemoglobin 13.9 g/dL (12.0-15.5) Hematocrit 42.0 % (36.0-47.0) Mean Corpuscular Volume 84 fL (79-100) Mean Corpuscular Hemoglobin 28 pg (25-35) Mean Corpuscular Hemoglobin Concent 33 g/dL (31-37) Red Cell Distribution Width 14.7 % (11.5-14.5) Platelet Count 231 x10^3/uL (140-400) Neutrophils (%) (Auto) 61 % (31-73) Lymphocytes (%) (Auto) 27 % (24-48) Monocytes (%) (Auto) 9 % (0-9) Eosinophils (%) (Auto) 2 % (0-3) Basophils (%) (Auto) 1 % (0-3) Neutrophils # (Auto) 4.2 x10^3/uL (1.8-7.7) Lymphocytes # (Auto) 1.9 x10^3/uL (1.0-4.8) Monocytes # (Auto) 0.6 x10^3/uL (0.0-1.1) Eosinophils # (Auto) 0.2 x10^3/uL (0.0-0.7) Basophils # (Auto) 0.1 x10^3/uL (0.0-0.2) Sodium Level 139 mmol/L (136-145) Potassium Level 3.5 mmol/L (3.5-5.1) Chloride Level 102 mmol/L (98-107) Carbon Dioxide Level 21 mmol/L (21-32) Anion Gap 16 (6-14) Blood Urea Nitrogen 11 mg/dL (7-20) Creatinine 1.0 mg/dL (0.6-1.0) Estimated GFR (Cockcroft-Gault) 61.1 BUN/Creatinine Ratio 11 (6-20) Glucose Level 117 mg/dL (70-99) Calcium Level 9.0 mg/dL (8.5-10.1) Magnesium Level 1.6 mg/dL (1.8-2.4) Total Bilirubin 0.5 mg/dL (0.2-1.0) Aspartate Amino Transf (AST/SGOT) 48 U/L (15-37) Alanine Aminotransferase (ALT/SGPT) 55 U/L (14-59) Alkaline Phosphatase 91 U/L (46-116) Troponin I Quantitative < 0.017 ng/mL (0.000-0.055) Total Protein 7.3 g/dL (6.4-8.2) Albumin 3.8 g/dL (3.4-5.0) Albumin/Globulin Ratio 1.1 (1.0-1.7) Lipase 69 U/L (73-393) Bedside Urine HCG, Qualitative Hcg negative (Negative) Images Images Impression: 1. There is no CT evidence of acute appendicitis. 2. A couple of foci of heterogeneous density of the left adnexa may be component of partially collapsed cysts, difficult to exclude small solid component in area of enhancement. There is probable mild dependent free fluid in the right adnexal region, component of slightly dilated right fallopian tube (hydrosalpinx) not excluded. 3. There is again focus of fat density of the anterior, inferior right kidney as may be seen with small angiomyolipoma. [] PROCEDURE: PELVIS W/TV PELVIS W/TV History: Pelvic pain. Abnormal CT. Comparison: CT January 04, 2020. Technique: Grayscale and color Doppler imaging of the pelvis was performed using transabdominal and transvaginal technique. Findings: The uterus measures 10.0 x 6.0 x 6.0 cm in length. Uterus has an unremarkable appearance. Nabothian cysts noted. The endometrial stripe measures 1.3 cm within normal range depending on phase of menstruation. Right ovary measures 3.2 x 1.5 x 1.8 cm. Left ovary measures 3.9 x 3.1 x 3.2 cm. Complex left ovarian follicle measures 1.5 cm. Normal Doppler flow to the ovaries. Small free fluid adjacent to the right ovary. IMPRESSION: 1. Complex left ovarian follicle, may represent hemorrhagic follicle. 2. Small pelvic free fluid. VTE Prophylaxis Ordered VTE Prophylaxis Devices: Yes VTE Pharmacological Prophylaxi: No Assessment/Plan Assessment/Plan ABdominal pain etiology undetermined, differential includes PUD and in light of her imaging studies a rupured ovarian cyst. She also may be having discomfort related to her menses Obesity with BMI of 36.8 Complex left ovarian follicle, may represent hemorrhagic follicle. Small pelvic free fluid. History of chronic PPI use due to dyspepsia Plan: will provide pain control with Bentyl continue home medications will consult GI will consult [employer] AND PROCESSES MANAGER reassess in the am further recommendations based on clinical course. JANET ROBIN MD Jan 04, 2020 21:39
[2020-01-04 23:00] VITALS: BP 114/54
[2020-01-05] MEDS: MORPHINE SULFATE 2 MG/ML VIAL. IV PRN ×6 (00:49→21:41)
[2020-01-05] MEDS: IV NORMAL SALINE 1000ML BAG 1,000 ML IV SCH ×3 (02:38→22:38)
[2020-01-05 03:00] VITALS: BP 114/78
[2020-01-05 07:15] VITALS: BP 109/77
[2020-01-05] MEDS ORDERED: PANTOPRAZOLE 40 MG TABLET.DR. PO SCH (07:30)
[2020-01-05] MEDS ORDERED: FLUoxetine HCL 20 MG CAPSULE PO SCH (09:00)
[2020-01-05] MEDS: POTASSIUM CHLORIDE 10 MEQ TABLET.ER. PO SCH (09:06)
[2020-01-05] MEDS: FLUoxetine HCL 20 MG CAPSULE PO SCH (09:06)
[2020-01-05] MEDS: PANTOPRAZOLE 40 MG TABLET.DR. PO SCH (09:06)
--- NOTE | 2020-01-05 09:58 | NUR ---
SW following. Discussed with RN, pt from home with family. GI and INDIVIDUAL[employer]ED EDUCATION PLAN AIDE following. RN advised no SW needs. SW will continue to follow.
[2020-01-05] MEDS: clonazePAM 0.5 MG TABLET PO PRN (10:53)
[2020-01-05] MEDS: HYDROcodone/APAP 5/325MG 1 TAB TABLET PO PRN ×3 (10:53→20:06)
--- NOTE | 2020-01-05 10:57 | PDOC2 ---
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 H/o GI issues for a couple years - abdominal pain, diarrhea, intermittent n/v. EGD and colonoscopy for chronic heartburn and chronic diarrhea in 12/[address] Palmer showed healed probably low-grade reflux, non-specific antral erythema (antral biopsies w/ congestion and slight chronic inflammation, negative for H. pylori), small hiatal hernia, normal duodenum (normal random biopsy, no sprue), patchy areas of erythema in sigmoid (biopsy w/ "recent hemorrhage within lamina propria" - no infectious, ischemic, chronic destructive, or microscopic colitis) but otherwise normal mucosa, large diverticulum in proximal ascending colon, small internal hemorrhoids noted and random biopsies from cecum/ascending (negative for pathology) and rectum (path w/ incidental hyperplastic polyp). Today says diarrhea improved after 'scopes but abdominal pain has continued. Has mild "flares" about twice weekly - aching, nagging - possibly brought on by drinking alcohol but not sure. Severe pain (sharp, stabbing - has to walk around and take deep breaths to calm down for a couple hours) occurs about every 3 weeks. Pain is diffuse, feels similar to gallbladder attack. Sometimes has vomiting, might help pain but not sure. Pain unchanged w/ stooling. Appetite not great when has pain - has a lot of nausea. Vomited yesterday before coming to ER. H/o GERD on PPI QD for awhile. No dysphagia, bloating, or early satiety. Lost weight a couple years ago, then gained - stable since. Diarrhea recurred in about September of this year - no precipitating events. Occurs 15-20 times daily - large volume stools (soft/loose/watery) at first, then smaller throughout the day - eventually no stool comes out but still has an uncomfortable urge and strains. Never hard stools. No help from past trial of Colestid, Bentyl, Imodium, ?and Lomotil. Hasn't tried fiber. Never any bleeding. S/p cholecystectomy for stones. No liver or pancreas history though she has concern for this because she drinks "a lot" of beer 2-3 days a week. Says might need to quit and feels she can handle this herself. Takes ibuprofen and Tylenol for headaches PRN. No recent antibiotic use. PMH: PMH: anxiety/depression , cholecystectomy, tonsillectomy FH: Family History: Other (GI disease, diverticulosis) Social History: ALCOHOL: other Drugs: None ROS: GEN: Denies fevers, chills, sweats HEENT: Denies blurred vision, sore throat CV: Denies chest pain RESP: Denies shortness of air, cough GI: Per HPI : Denies hematuria, dysuria ENDO: Denies weight changes NEURO: Denies confusion, dizziness MSK: low back pain SKIN: Denies jaundice, pruritus Vitals: Vitals: Vital Signs Date Time Temp Pulse Resp B/P (MAP) Pulse Ox O2 Delivery O2 Flow Rate FiO2 01/05/20 09:10 Room Air 01/05/20 07:15 98.3 69 18 109/77 (88) 90 98.3 Labs: Labs: Laboratory Tests Test 01/04/20 11:00 01/04/20 11:16 01/04/20 11:23 Urine Collection Type Unknown Urine Color Yellow Urine Clarity Hazy Urine pH 6.0 (<5.0-8.0) Urine Specific [place] 1.025 (1.000-1.030) Urine Protein 30 mg/dL (NEG-TRACE) Urine Glucose (UA) Negative mg/dL (NEG) Urine Ketones (Stick) Trace mg/dL (NEG) Urine Blood Negative (NEG) Urine Nitrite Negative (NEG) Urine Bilirubin Small (NEG) Urine Urobilinogen Dipstick 0.2 mg/dL (0.2 mg/dL) Urine Leukocyte Esterase Moderate (NEG) Urine RBC Occ /HPF (0-2) Urine WBC 11-20 /HPF (0-4) Urine Squamous Epithelial Cells Many /LPF Urine Bacteria Many /HPF (0-FEW) Urine Mucus Mod /LPF White Blood Count 6.9 x10^3/uL (4.0-11.0) Red Blood Count 4.98 x10^6/uL (3.50-5.40) Hemoglobin 13.9 g/dL (12.0-15.5) Hematocrit 42.0 % (36.0-47.0) Mean Corpuscular Volume 84 fL (79-100) Mean Corpuscular Hemoglobin 28 pg (25-35) Mean Corpuscular Hemoglobin Concent 33 g/dL (31-37) Red Cell Distribution Width 14.7 % (11.5-14.5) Platelet Count 231 x10^3/uL (140-400) Neutrophils (%) (Auto) 61 % (31-73) Lymphocytes (%) (Auto) 27 % (24-48) Monocytes (%) (Auto) 9 % (0-9) Eosinophils (%) (Auto) 2 % (0-3) Basophils (%) (Auto) 1 % (0-3) Neutrophils # (Auto) 4.2 x10^3/uL (1.8-7.7) Lymphocytes # (Auto) 1.9 x10^3/uL (1.0-4.8) Monocytes # (Auto) 0.6 x10^3/uL (0.0-1.1) Eosinophils # (Auto) 0.2 x10^3/uL (0.0-0.7) Basophils # (Auto) 0.1 x10^3/uL (0.0-0.2) Sodium Level 139 mmol/L (136-145) Potassium Level 3.5 mmol/L (3.5-5.1) Chloride Level 102 mmol/L (98-107) Carbon Dioxide Level 21 mmol/L (21-32) Anion Gap 16 (6-14) Blood Urea Nitrogen 11 mg/dL (7-20) Creatinine 1.0 mg/dL (0.6-1.0) Estimated GFR (Cockcroft-Gault) 61.1 BUN/Creatinine Ratio 11 (6-20) Glucose Level 117 mg/dL (70-99) Calcium Level 9.0 mg/dL (8.5-10.1) Magnesium Level 1.6 mg/dL (1.8-2.4) Total Bilirubin 0.5 mg/dL (0.2-1.0) Aspartate Amino Transf (AST/SGOT) 48 U/L (15-37) Alanine Aminotransferase (ALT/SGPT) 55 U/L (14-59) Alkaline Phosphatase 91 U/L (46-116) Troponin I Quantitative < 0.017 ng/mL (0.000-0.055) Total Protein 7.3 g/dL (6.4-8.2) Albumin 3.8 g/dL (3.4-5.0) Albumin/Globulin Ratio 1.1 (1.0-1.7) Lipase 69 U/L (73-393) Bedside Urine HCG, Qualitative Hcg negative (Negative) WET PREP Final YEAST NONE SEEN TRICHOMONAS NONE SEEN CLUE CELLS NONE SEEN WBCS FEW SQUAMOUS EPS MANY Allergies: Coded Allergies: No Known Drug Allergies (Unverified , 12/20/18) Medications: Current Medications Medications (Trade) Dose Ordered Sig/Jeanie Route PRN Reason Start Time Stop Time Status Last Admin Dose Admin Morphine Sulfate (Morphine Sulfate) 4 mg PRN Q15MIN PRN IV/SQ PAIN GREATER THAN 3/10 01/04/20 11:45 01/05/20 11:44 01/04/20 13:45 Sodium Chloride 1,000 ml @ 1,000 mls/hr Q1H IV 01/04/20 11:31 01/04/20 12:30 DC 01/04/20 11:52 Ondansetron HCl (Zofran) 4 mg 1X ONCE IVP 01/04/20 11:45 01/04/20 11:46 DC 01/04/20 11:52 Lorazepam (Ativan Inj) 1 mg 1X ONCE IVP 01/04/20 13:00 01/04/20 13:01 DC 01/04/20 13:00 Multi-Ingredient Mouthwash/Gargle (Gi Cocktail) 20 ml 1X ONCE SWSW 01/04/20 13:00 01/04/20 13:01 DC 01/04/20 12:59 Dicyclomine HCl (Bentyl) 20 mg 1X ONCE IM 01/04/20 13:30 01/04/20 13:31 DC 01/04/20 13:45 Iohexol (Omnipaque 300 Mg/ml) 75 ml 1X ONCE IV 01/04/20 13:45 01/04/20 13:46 DC 01/04/20 13:59 Magnesium Sulfate/ Dextrose 100 ml @ 100 mls/hr 1X ONCE IV 01/04/20 14:00 01/04/20 14:59 DC 01/04/20 14:57 Hydromorphone HCl (Dilaudid) 0.5 mg 1X ONCE IV 01/04/20 14:45 01/04/20 14:46 DC 01/04/20 14:55 Sodium Chloride 1,000 ml @ 100 mls/hr Q10H IV 01/04/20 16:38 01/04/20 18:41 Lorazepam (Ativan) 0.5 mg PRN Q4HRS PRN PO ANXIETY / AGITATION 01/04/20 16:45 01/04/20 20:39 Trazodone HCl (Desyrel) 50 mg QHS PO 01/04/20 21:00 01/04/20 20:39 Pantoprazole Sodium (Protonix) 40 mg DAILYAC PO 01/05/20 07:30 01/05/20 09:06 Potassium Chloride (Klor-Con) 10 meq DAILYWBKFT PO 01/05/20 08:00 01/05/20 09:06 Fluoxetine HCl (PROzac) 40 mg DAILY PO 01/05/20 09:00 01/05/20 09:06 Morphine Sulfate (Morphine Sulfate) 2 mg PRN Q4HRS PRN IV PAIN 01/04/20 19:30 01/05/20 09:10 Imaging: Imaging: CT A/P Impression: 1. There is no CT evidence of acute appendicitis. 2. A couple of foci of heterogeneous density of the left adnexa may be component of partially collapsed cysts, difficult to exclude small solid component in area of enhancement. There is probable mild dependent free fluid in the right adnexal region, component of slightly dilated right fallopian tube (hydrosalpinx) not e xcluded. 3. There is again focus of fat density of the anterior, inferior right kidney as may be seen with small angiomyolipoma. Pelv US IMPRESSION: 1. Complex left ovarian follicle, may represent hemorrhagic follicle. 2. Small pelvic free fluid. PE: GEN: NAD HEENT: Atraumatic, PERRL LUNGS: CTAB HEART: RRR ABD: NABS, S/ND, diffusely tender EXTREMITY: No edema SKIN: No rashes, no jaundice NEURO/PSYCH: A & O 3 A/P: A/P: Chronic/recurrent abd pain, diarrhea, n/v GERD ?IBS, ?tenesmus CRC screen Diverticulosis, hemorrhoids S/p cholecystectomy Alcohol misuse, anxiety/depression -- [employer] LOGGER to see. Previous GI workup as above. Continue PPI. Will review additional GI recs w/ Dr. Palmer. JULISA VASQUEZ Jan 05, 2020 10:57
--- NOTE | 2020-01-05 11:14 | PDOC2 ---
CONSULT Date of Consult Date of Consult DATE: 01/05/20 TIME: 11:10 Reason for Consult Reason for Consult: Ovarian cyst History of Present Illness Reason for Visit: HPI: The pt is a 39yo who presented to the ER with abd pain. The pt pain states that she feel the pain in the epigastric region as well as bilaterally in her lower abd. She has chronic abd issues over the yrs, but yesterday the pain was so severe she need to come to the hospital. She has also had chronic N/V/D over the yrs as well. This has become more frequent in the last couple of days. In the course of her work up in the ER, the pt underwent imaging. A CT revealed what appeared to be a couple cysts in the left adnexa and some free fluid. The CT also identified a potential right hydrosalpinx. An u/s identified the left ovarian mass as a complex left follicle measuring 1.5 cm. The u/s also identified the small amt of fluid in the pelvis. The pt states that the pain is better with the meds, but still present. She has had no episodes of vomiting since yesterday morning, but still has loose stools. The pt also states that she has heavy painful periods. She has had this most of her life as well. In the past she was on OCPs which seemed to help. She has not been on any form of contraception for some time. Briefly discussed tx options for menorrhagia and dysmenorrhea. The pt states that her last period about a month and half ago. She states that typically her periods are monthly but at times they may be a wk or two late. 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 H/o OCP use 5-10yrs 11yo / regular Past Medical History Cardiovascular: No pertinent hx Pulmonary: No pertinent hx GI: GERD Past Surgical History Past Surgical History Josey, C/S, Tonsils Past Surgical History: No pertinent history Family History Family History father CAD, HTN, DM, mother HTN Social History <1 pack per day ALCOHOL: occassional Drugs: None Current Problem List Problem List Problems Medical Problems: (1) Intractable abdominal pain Status: Acute Current Medications Current Medications Current Medications Morphine Sulfate (Morphine Sulfate) 4 mg PRN Q15MIN PRN IV/SQ PAIN GREATER THAN 3/10 Last administered on 01/04/20at 13:45; Start 01/04/20 at 11:45; Stop 01/05/20 at 11:44 Sodium Chloride 1,000 ml @ 1,000 mls/hr Q1H IV Last administered on 01/04/20at 11:52; Start 01/04/20 at 11:31; Stop 01/04/20 at 12:30; Status DC Ondansetron HCl (Zofran) 4 mg 1X ONCE IVP Last administered on 01/04/20at 11:52; Start 01/04/20 at 11:45; Stop 01/04/20 at 11:46; Status DC Lorazepam (Ativan Inj) 1 mg 1X ONCE IVP Last administered on 01/04/20at 13:00; Start 01/04/20 at 13:00; Stop 01/04/20 at 13:01; Status DC Multi-Ingredient Mouthwash/Gargle (Gi Cocktail) 20 ml 1X ONCE SWSW Last administered on 01/04/20at 12:59; Start 01/04/20 at 13:00; Stop 01/04/20 at 13:01; Status DC Dicyclomine HCl (Bentyl) 20 mg 1X ONCE IM Last administered on 01/04/20at 13:45; Start 01/04/20 at 13:30; Stop 01/04/20 at 13:31; Status DC Iohexol (Omnipaque 300 Mg/ml) 75 ml 1X ONCE IV Last administered on 01/04/20at 13:59; Start 01/04/20 at 13:45; Stop 01/04/20 at 13:46; Status DC Info (CONTRAST GIVEN -- Rx MONITORING) 1 each PRN DAILY PRN MC SEE COMMENTS; Start 01/04/20 at 13:45; Stop 01/06/20 at 13:44 Magnesium Sulfate/ Dextrose 100 ml @ 100 mls/hr 1X ONCE IV Last administered on 01/04/20at 14:57; Start 01/04/20 at 14:00; Stop 01/04/20 at 14:59; Status DC Hydromorphone HCl (Dilaudid) 0.5 mg 1X ONCE IV Last administered on 01/04/20at 14:55; Start 01/04/20 at 14:45; Stop 01/04/20 at 14:46; Status DC Sodium Chloride 1,000 ml @ 100 mls/hr Q10H IV Last administered on 01/04/20at 18:41; Start 01/04/20 at 16:38 Ondansetron HCl (Zofran) 4 mg PRN Q4HRS PRN IV NAUSEA/VOMITING; Start 01/04/20 at 16:45 Zolpidem Tartrate (Ambien) 5 mg PRN QHS PRN PO INSOMNIA; Start 01/04/20 at 16:45 Acetaminophen (Tylenol) 650 mg PRN Q4HRS PRN PO TEMP OVER 100.4F OR MILD PAIN; Start 01/04/20 at 16:45 Clonidine HCl (Catapres) 0.1 mg PRN Q6HRS PRN PO SBP>160 OR DBP>90; Start 01/04/20 at 16:45 Diphenhydramine HCl (Benadryl) 25 mg PRN Q4HRS PRN IVP ITCHING; Start 01/04/20 at 16:45 Docusate Sodium (Colace) 100 mg PRN BID PRN PO CONSTIPATION; Start 01/04/20 at 16:45 Albuterol Sulfate (Ventolin Neb Soln) 2.5 mg PRN Q4HRS PRN NEB SHORTNESS OF BREATH; Start 01/04/20 at 16:45 Guaifenesin (Robitussin) 200 mg PRN Q4HRS PRN PO COUGH; Start 01/04/20 at 16:45 Lorazepam (Ativan) 0.5 mg PRN Q4HRS PRN PO ANXIETY/AGITATION, 2ND CHOICE Last administered on 01/04/20at 20:39; Start 01/04/20 at 16:45 Clonazepam (KlonoPIN) 0.5 mg PRN TID PRN PO ANXIETY/AGITATION, 1ST CHOICE Last administered on 01/05/20at 10:53; Start 01/04/20 at 16:45 Trazodone HCl (Desyrel) 50 mg QHS PO Last administered on 01/04/20at 20:39; Start 01/04/20 at 21:00 Fluoxetine HCl (PROzac) 60 mg DAILY PO ; Start 01/05/20 at 09:00; Status Cancel Pantoprazole Sodium (Protonix) 40 mg DAILYAC PO Last administered on 01/05/20at 09:06; Start 01/05/20 at 07:30 Potassium Chloride (Klor-Con) 10 meq DAILYWBKFT PO Last administered on 01/05/20at 09:06; Start 01/05/20 at 08:00 Pantoprazole Sodium (Protonix) 40 mg DAILYAC PO ; Start 01/05/20 at 07:30; Status UNV Fluoxetine HCl (PROzac) 40 mg DAILY PO Last administered on 01/05/20at 09:06; Start 01/05/20 at 09:00 Dicyclomine HCl (Bentyl) 10 mg PRN Q6HRS PRN PO ABD CRAMP; Start 01/04/20 at 19:30 Multi-Ingredient Mouthwash/Gargle (Gi Cocktail) 20 ml PRN QID PRN PO CHEST PAIN; Start 01/04/20 at 19:30 Morphine Sulfate (Morphine Sulfate) 2 mg PRN Q4HRS PRN IV PAIN Last administered on 01/05/20at 09:10; Start 01/04/20 at 19:30 Acetaminophen/ Hydrocodone Bitart (Lortab 5/325) 1 tab PRN Q4HRS PRN PO MODERATE-SEVERE PAIN Last administered on 01/05/20at 10:53; Start 01/05/20 at 08:15 Active Scripts Active Reported Prozac (Fluoxetine Hcl) 40 Mg Capsule 1 Cap PO DAILY Protonix (Pantoprazole Sodium) 40 Mg Tablet.dr 40 Mg PO DAILYAC Potassium Chloride 10 Meq Tablet.er 10 Meq PO DAILY Trazodone Hcl 50 Mg Tablet 1 Tab PO QHS Klonopin (Clonazepam) 0.5 Mg Tablet 1 Tab PO PRN TID PRN Allergies Allergies: Coded Allergies: No Known Drug Allergies (Unverified , 12/20/18) Physical Exam General: Alert, Oriented X3, Cooperative, No acute distress HEENT: PERRLA, Mucous membr. moist/pink Lungs: Clear to auscultation, Normal air movement Heart: Regular rate, Normal S1, Normal S2, No murmurs Abdomen: Normal bowel sounds, Soft, No hepatosplenomegaly, No masses, Other (diffusely tender) Extremities: No clubbing, No cyanosis, No edema, Normal pulses, No tenderness/swelling Vitals VITALS Vital Signs Date Time Temp Pulse Resp B/P (MAP) Pulse Ox O2 Delivery O2 Flow Rate FiO2 01/05/20 10:53 Room Air 01/05/20 07:15 98.3 69 18 109/77 (88) 90 98.3 Labs Labs Laboratory Tests Test 01/04/20 11:00 01/04/20 11:16 01/04/20 11:23 Urine Collection Type Unknown Urine Color Yellow Urine Clarity Hazy Urine pH 6.0 (<5.0-8.0) Urine Specific [place] 1.025 (1.000-1.030) Urine Protein 30 mg/dL (NEG-TRACE) Urine Glucose (UA) Negative mg/dL (NEG) Urine Ketones (Stick) Trace mg/dL (NEG) Urine Blood Negative (NEG) Urine Nitrite Negative (NEG) Urine Bilirubin Small (NEG) Urine Urobilinogen Dipstick 0.2 mg/dL (0.2 mg/dL) Urine Leukocyte Esterase Moderate (NEG) Urine RBC Occ /HPF (0-2) Urine WBC 11-20 /HPF (0-4) Urine Squamous Epithelial Cells Many /LPF Urine Bacteria Many /HPF (0-FEW) Urine Mucus Mod /LPF White Blood Count 6.9 x10^3/uL (4.0-11.0) Red Blood Count 4.98 x10^6/uL (3.50-5.40) Hemoglobin 13.9 g/dL (12.0-15.5) Hematocrit 42.0 % (36.0-47.0) Mean Corpuscular Volume 84 fL (79-100) Mean Corpuscular Hemoglobin 28 pg (25-35) Mean Corpuscular Hemoglobin Concent 33 g/dL (31-37) Red Cell Distribution Width 14.7 % (11.5-14.5) Platelet Count 231 x10^3/uL (140-400) Neutrophils (%) (Auto) 61 % (31-73) Lymphocytes (%) (Auto) 27 % (24-48) Monocytes (%) (Auto) 9 % (0-9) Eosinophils (%) (Auto) 2 % (0-3) Basophils (%) (Auto) 1 % (0-3) Neutrophils # (Auto) 4.2 x10^3/uL (1.8-7.7) Lymphocytes # (Auto) 1.9 x10^3/uL (1.0-4.8) Monocytes # (Auto) 0.6 x10^3/uL (0.0-1.1) Eosinophils # (Auto) 0.2 x10^3/uL (0.0-0.7) Basophils # (Auto) 0.1 x10^3/uL (0.0-0.2) Sodium Level 139 mmol/L (136-145) Potassium Level 3.5 mmol/L (3.5-5.1) Chloride Level 102 mmol/L (98-107) Carbon Dioxide Level 21 mmol/L (21-32) Anion Gap 16 (6-14) Blood Urea Nitrogen 11 mg/dL (7-20) Creatinine 1.0 mg/dL (0.6-1.0) Estimated GFR (Cockcroft-Gault) 61.1 BUN/Creatinine Ratio 11 (6-20) Glucose Level 117 mg/dL (70-99) Calcium Level 9.0 mg/dL (8.5-10.1) Magnesium Level 1.6 mg/dL (1.8-2.4) Total Bilirubin 0.5 mg/dL (0.2-1.0) Aspartate Amino Transf (AST/SGOT) 48 U/L (15-37) Alanine Aminotransferase (ALT/SGPT) 55 U/L (14-59) Alkaline Phosphatase 91 U/L (46-116) Troponin I Quantitative < 0.017 ng/mL (0.000-0.055) Total Protein 7.3 g/dL (6.4-8.2) Albumin 3.8 g/dL (3.4-5.0) Albumin/Globulin Ratio 1.1 (1.0-1.7) Lipase 69 U/L (73-393) Bedside Urine HCG, Qualitative Hcg negative (Negative) Laboratory Tests Test 01/04/20 11:16 01/04/20 11:23 White Blood Count 6.9 x10^3/uL (4.0-11.0) Red Blood Count 4.98 x10^6/uL (3.50-5.40) Hemoglobin 13.9 g/dL (12.0-15.5) Hematocrit 42.0 % (36.0-47.0) Mean Corpuscular Volume 84 fL (79-100) Mean Corpuscular Hemoglobin 28 pg (25-35) Mean Corpuscular Hemoglobin Concent 33 g/dL (31-37) Red Cell Distribution Width 14.7 % (11.5-14.5) Platelet Count 231 x10^3/uL (140-400) Neutrophils (%) (Auto) 61 % (31-73) Lymphocytes (%) (Auto) 27 % (24-48) Monocytes (%) (Auto) 9 % (0-9) Eosinophils (%) (Auto) 2 % (0-3) Basophils (%) (Auto) 1 % (0-3) Neutrophils # (Auto) 4.2 x10^3/uL (1.8-7.7) Lymphocytes # (Auto) 1.9 x10^3/uL (1.0-4.8) Monocytes # (Auto) 0.6 x10^3/uL (0.0-1.1) Eosinophils # (Auto) 0.2 x10^3/uL (0.0-0.7) Basophils # (Auto) 0.1 x10^3/uL (0.0-0.2) Sodium Level 139 mmol/L (136-145) Potassium Level 3.5 mmol/L (3.5-5.1) Chloride Level 102 mmol/L (98-107) Carbon Dioxide Level 21 mmol/L (21-32) Anion Gap 16 (6-14) Blood Urea Nitrogen 11 mg/dL (7-20) Creatinine 1.0 mg/dL (0.6-1.0) Estimated GFR (Cockcroft-Gault) 61.1 BUN/Creatinine Ratio 11 (6-20) Glucose Level 117 mg/dL (70-99) Calcium Level 9.0 mg/dL (8.5-10.1) Magnesium Level 1.6 mg/dL (1.8-2.4) Total Bilirubin 0.5 mg/dL (0.2-1.0) Aspartate Amino Transf (AST/SGOT) 48 U/L (15-37) Alanine Aminotransferase (ALT/SGPT) 55 U/L (14-59) Alkaline Phosphatase 91 U/L (46-116) Troponin I Quantitative < 0.017 ng/mL (0.000-0.055) Total Protein 7.3 g/dL (6.4-8.2) Albumin 3.8 g/dL (3.4-5.0) Albumin/Globulin Ratio 1.1 (1.0-1.7) Lipase 69 U/L (73-393) Bedside Urine HCG, Qualitative Hcg negative (Negative) Assessment/Plan Assessment/Plan A/P 39yo with abd pain, N/V/D, and ovarian mass 1.) Abd pain etiology of pain most 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 Possibly GI with associated symptoms, GI consulted 2.) N/V/D improved since admission, GI consulted 3.) Ovarian mass appears to be a normal small follicular cyst. These cysts are therefore called physiologic or functional. Either type may become hemorrhagic. Functional cysts are generally asymptomatic unless they rupture or they become hemorrhagic. Most spontaneously resolve within a few weeks. This is likely not the source of her pain and no intervention is necessary. 4.) Right hydrosaplinx can be asx or can at time be a source of pain. Typically, if identified as the source of pain other etiologies should be excluded. An asymptomatic hydrosalpinx does not generally need to be removed or followed with imaging. 5.) Menorrhagia chronic issues, Hgb 13.9, discussed tx options, may explore in more depth after hospitalization 6.) Dysmenorrhea as above 7.) Contraception - none 8.) Tob use 8.) Mild elevation in LFTs 9.) Will continue to follow AMY RIVAS MD Jan 05, 2020 11:14
[2020-01-05 11:59] VITALS: BP 121/85
--- NOTE | 2020-01-05 14:35 | PDOC ---
PROGRESS NOTES Chief Complaint Chief Complaint ABdominal pain msot likely related to alcohol beverages ingestion, recommendations from decorator consultant greatly appreciated. Obesity with BMI of 36.8 Complex left ovarian follicle, may represent hemorrhagic follicle. Small pelvic free fluid. History of chronic PPI use due to dyspepsia Plan: will provide pain control with [place] [facility] continue home medications follow recs from consultants reassess in the am further recommendations based on clinical course. History of Present Illness History of Present Illness No acute events reported overnight, case discussed with nursing staff patient in no acute distress no complaints during my visit Vitals Vitals Vital Signs Date Time Temp Pulse Resp B/P (MAP) Pulse Ox O2 Delivery O2 Flow Rate FiO2 01/05/20 13:23 Room Air 01/05/20 11:59 98.6 73 18 121/85 (97) 98 98.6 Physical Exam General: Alert, Oriented X3, Cooperative, No acute distress Heart: Regular rate, Normal S1, Normal S2, No murmurs Abdomen: Normal bowel sounds, Soft, No hepatosplenomegaly, No masses, Other (diffusely tender) Extremities: No clubbing, No cyanosis, No edema, Normal pulses, No tenderness/swelling Assessment and Plan Assessmemt and Plan Problems Medical Problems: (1) Intractable abdominal pain Status: Acute Comment Review of Relevant I have reviewed the following items ravinder (where applicable) has been applied. Labs Laboratory Tests Test 01/04/20 11:00 01/04/20 11:16 01/04/20 11:23 Urine Collection Type Unknown Urine Color Yellow Urine Clarity Hazy Urine pH 6.0 (<5.0-8.0) Urine Specific [place]agh 1.025 (1.000-1.030) Urine Protein 30 mg/dL (NEG-TRACE) Urine Glucose (UA) Negative mg/dL (NEG) Urine Ketones (Stick) Trace mg/dL (NEG) Urine Blood Negative (NEG) Urine Nitrite Negative (NEG) Urine Bilirubin Small (NEG) Urine Urobilinogen Dipstick 0.2 mg/dL (0.2 mg/dL) Urine Leukocyte Esterase Moderate (NEG) Urine RBC Occ /HPF (0-2) Urine WBC 11-20 /HPF (0-4) Urine Squamous Epithelial Cells Many /LPF Urine Bacteria Many /HPF (0-FEW) Urine Mucus Mod /LPF White Blood Count 6.9 x10^3/uL (4.0-11.0) Red Blood Count 4.98 x10^6/uL (3.50-5.40) Hemoglobin 13.9 g/dL (12.0-15.5) Hematocrit 42.0 % (36.0-47.0) Mean Corpuscular Volume 84 fL (79-100) Mean Corpuscular Hemoglobin 28 pg (25-35) Mean Corpuscular Hemoglobin Concent 33 g/dL (31-37) Red Cell Distribution Width 14.7 % (11.5-14.5) Platelet Count 231 x10^3/uL (140-400) Neutrophils (%) (Auto) 61 % (31-73) Lymphocytes (%) (Auto) 27 % (24-48) Monocytes (%) (Auto) 9 % (0-9) Eosinophils (%) (Auto) 2 % (0-3) Basophils (%) (Auto) 1 % (0-3) Neutrophils # (Auto) 4.2 x10^3/uL (1.8-7.7) Lymphocytes # (Auto) 1.9 x10^3/uL (1.0-4.8) Monocytes # (Auto) 0.6 x10^3/uL (0.0-1.1) Eosinophils # (Auto) 0.2 x10^3/uL (0.0-0.7) Basophils # (Auto) 0.1 x10^3/uL (0.0-0.2) Sodium Level 139 mmol/L (136-145) Potassium Level 3.5 mmol/L (3.5-5.1) Chloride Level 102 mmol/L (98-107) Carbon Dioxide Level 21 mmol/L (21-32) Anion Gap 16 (6-14) Blood Urea Nitrogen 11 mg/dL (7-20) Creatinine 1.0 mg/dL (0.6-1.0) Estimated GFR (Cockcroft-Gault) 61.1 BUN/Creatinine Ratio 11 (6-20) Glucose Level 117 mg/dL (70-99) Calcium Level 9.0 mg/dL (8.5-10.1) Magnesium Level 1.6 mg/dL (1.8-2.4) Total Bilirubin 0.5 mg/dL (0.2-1.0) Aspartate Amino Transf (AST/SGOT) 48 U/L (15-37) Alanine Aminotransferase (ALT/SGPT) 55 U/L (14-59) Alkaline Phosphatase 91 U/L (46-116) Troponin I Quantitative < 0.017 ng/mL (0.000-0.055) Total Protein 7.3 g/dL (6.4-8.2) Albumin 3.8 g/dL (3.4-5.0) Albumin/Globulin Ratio 1.1 (1.0-1.7) Lipase 69 U/L (73-393) Bedside Urine HCG, Qualitative Hcg negative (Negative) Microbiology 01/04/20 Wet Prep - Final, Complete Medications Current Medications Morphine Sulfate (Morphine Sulfate) 4 mg PRN Q15MIN PRN IV/SQ PAIN GREATER THAN 3/10 Last administered on 01/04/20at 13:45; Start 01/04/20 at 11:45; Stop 01/05/20 at 11:44; Status DC Sodium Chloride 1,000 ml @ 1,000 mls/hr Q1H IV Last administered on 01/04/20at 11:52; Start 01/04/20 at 11:31; Stop 01/04/20 at 12:30; Status DC Ondansetron HCl (Zofran) 4 mg 1X ONCE IVP Last administered on 01/04/20at 11:52; Start 01/04/20 at 11:45; Stop 01/04/20 at 11:46; Status DC Lorazepam (Ativan Inj) 1 mg 1X ONCE IVP Last administered on 01/04/20at 13:00; Start 01/04/20 at 13:00; Stop 01/04/20 at 13:01; Status DC Multi-Ingredient Mouthwash/Gargle (Gi Cocktail) 20 ml 1X ONCE SWSW Last administered on 01/04/20at 12:59; Start 01/04/20 at 13:00; Stop 01/04/20 at 13:01; Status DC Dicyclomine HCl (Bentyl) 20 mg 1X ONCE IM Last administered on 01/04/20at 13:45; Start 01/04/20 at 13:30; Stop 01/04/20 at 13:31; Status DC Iohexol (Omnipaque 300 Mg/ml) 75 ml 1X ONCE IV Last administered on 01/04/20at 13:59; Start 01/04/20 at 13:45; Stop 01/04/20 at 13:46; Status DC Info (CONTRAST GIVEN -- Rx MONITORING) 1 each PRN DAILY PRN MC SEE COMMENTS; Start 01/04/20 at 13:45; Stop 01/06/20 at 13:44 Magnesium Sulfate/ Dextrose 100 ml @ 100 mls/hr 1X ONCE IV Last administered on 01/04/20at 14:57; Start 01/04/20 at 14:00; Stop 01/04/20 at 14:59; Status DC Hydromorphone HCl (Dilaudid) 0.5 mg 1X ONCE IV Last administered on 01/04/20at 14:55; Start 01/04/20 at 14:45; Stop 01/04/20 at 14:46; Status DC Sodium Chloride 1,000 ml @ 100 mls/hr Q10H IV Last administered on 01/04/20at 18:41; Start 01/04/20 at 16:38 Ondansetron HCl (Zofran) 4 mg PRN Q4HRS PRN IV NAUSEA/VOMITING; Start 01/04/20 at 16:45 Zolpidem Tartrate (Ambien) 5 mg PRN QHS PRN PO INSOMNIA; Start 01/04/20 at 16:45 Acetaminophen (Tylenol) 650 mg PRN Q4HRS PRN PO TEMP OVER 100.4F OR MILD PAIN; Start 01/04/20 at 16:45 Clonidine HCl (Catapres) 0.1 mg PRN Q6HRS PRN PO SBP>160 OR DBP>90; Start 01/04/20 at 16:45 Diphenhydramine HCl (Benadryl) 25 mg PRN Q4HRS PRN IVP ITCHING; Start 01/04/20 at 16:45 Docusate Sodium (Colace) 100 mg PRN BID PRN PO CONSTIPATION; Start 01/04/20 at 16:45 Albuterol Sulfate (Ventolin Neb Soln) 2.5 mg PRN Q4HRS PRN NEB SHORTNESS OF BREATH; Start 01/04/20 at 16:45 Guaifenesin (Robitussin) 200 mg PRN Q4HRS PRN PO COUGH; Start 01/04/20 at 16:45 Lorazepam (Ativan) 0.5 mg PRN Q4HRS PRN PO ANXIETY/AGITATION, 2ND CHOICE Last administered on 01/04/20at 20:39; Start 01/04/20 at 16:45 Clonazepam (KlonoPIN) 0.5 mg PRN TID PRN PO ANXIETY/AGITATION, 1ST CHOICE Last administered on 01/05/20at 10:53; Start 01/04/20 at 16:45 Trazodone HCl (Desyrel) 50 mg QHS PO Last administered on 01/04/20at 20:39; Start 01/04/20 at 21:00 Fluoxetine HCl (PROzac) 60 mg DAILY PO ; Start 01/05/20 at 09:00; Status Cancel Pantoprazole Sodium (Protonix) 40 mg DAILYAC PO Last administered on 01/05/20at 09:06; Start 01/05/20 at 07:30 Potassium Chloride (Klor-Con) 10 meq DAILYWBKFT PO Last administered on 01/05/20at 09:06; Start 01/05/20 at 08:00 Pantoprazole Sodium (Protonix) 40 mg DAILYAC PO ; Start 01/05/20 at 07:30; Status UNV Fluoxetine HCl (PROzac) 40 mg DAILY PO Last administered on 01/05/20at 09:06; Start 01/05/20 at 09:00 Dicyclomine HCl (Bentyl) 10 mg PRN Q6HRS PRN PO ABD CRAMP; Start 01/04/20 at 19:30 Multi-Ingredient Mouthwash/Gargle (Gi Cocktail) 20 ml PRN QID PRN PO CHEST PAIN; Start 01/04/20 at 19:30 Morphine Sulfate (Morphine Sulfate) 2 mg PRN Q4HRS PRN IV PAIN Last administered on 01/05/20at 13:23; Start 01/04/20 at 19:30 Acetaminophen/ Hydrocodone Bitart (Lortab 5/325) 1 tab PRN Q4HRS PRN PO MODERATE-SEVERE PAIN Last administered on 01/05/20at 10:53; Start 01/05/20 at 08:15 Active Scripts Active Reported Prozac (Fluoxetine Hcl) 40 Mg Capsule 1 Cap PO DAILY Protonix (Pantoprazole Sodium) 40 Mg Tablet.dr 40 Mg PO DAILYAC Potassium Chloride 10 Meq Tablet.er 10 Meq PO DAILY Trazodone Hcl 50 Mg Tablet 1 Tab PO QHS Klonopin (Clonazepam) 0.5 Mg Tablet 1 Tab PO PRN TID PRN Vitals/I & O Vital Sign - Last 24 Hours 01/04/20 01/04/20 01/04/20 01/04/20 14:44 14:55 15:14 15:44 Pulse 78 80 72 Resp 20 20 20 16 B/P (MAP) 126/68 (87) 122/76 (91) 105/73 (84) Pulse Ox 98 97 97 94 O2 Delivery Room Air Room Air Room Air Room Air 01/04/20 01/04/20 01/04/20 01/04/20 16:14 16:44 17:15 19:00 Temp 98.2 98.2 Pulse 68 80 69 Resp 16 16 18 B/P (MAP) 120/65 (83) 130/89 (103) 133/79 (97) Pulse Ox 94 98 97 O2 Delivery Room Air Room Air Room Air Room Air 01/04/20 01/04/20 01/04/20 01/04/20 19:45 19:59 20:35 23:00 Temp 98.0 98.0 Pulse 75 Resp 18 B/P (MAP) 114/54 (74) Pulse Ox 95 O2 Delivery Room Air Room Air Room Air Room Air 01/05/20 01/05/20 01/05/20 01/05/20 00:49 01:20 03:00 04:47 Temp 98.2 98.2 Pulse 79 Resp 18 B/P (MAP) 114/78 (90) Pulse Ox 95 O2 Delivery Room Air Room Air Room Air Room Air 01/05/20 01/05/20 01/05/20 01/05/20 05:17 07:15 07:55 09:10 Temp 98.3 98.3 Pulse 69 Resp 18 B/P (MAP) 109/77 (88) Pulse Ox 90 O2 Delivery Room Air Room Air Room Air Room Air 01/05/20 01/05/20 01/05/20 01/05/20 10:00 10:53 11:59 12:00 Temp 98.6 98.6 Pulse 73 Resp 18 B/P (MAP) 121/85 (97) Pulse Ox 98 O2 Delivery Room Air Room Air Room Air Room Air 01/05/20 13:23 O2 Delivery Room Air Intake and Output 4/01/04/20 01/05/20 15:00 23:00 07:00 Intake Total 1000 ml 100 ml Balance 1000 ml 100 ml JANET ROBIN MD Jan 05, 2020 14:35
[2020-01-05 15:16] VITALS: BP 119/70
[2020-01-05] MEDS: LORazepam 0.5 MG TABLET PO PRN (16:05)
[2020-01-05 16:09] LABS: GC PROBE Negative (Negative)
[2020-01-05 19:00] VITALS: BP 137/72
[2020-01-05] MEDS: traZODone 50 MG TABLET. PO SCH (20:02)
[2020-01-05 23:00] VITALS: BP 118/64
[2020-01-06] MEDS: MORPHINE SULFATE 2 MG/ML VIAL. IV PRN ×2 (02:08→06:17)
[2020-01-06 03:00] VITALS: BP 131/83
[2020-01-06 07:00] VITALS: BP 131/71
[2020-01-06] MEDS: HYDROcodone/APAP 5/325MG 1 TAB TABLET PO PRN (08:08)
[2020-01-06] MEDS: clonazePAM 0.5 MG TABLET PO PRN (08:08)
[2020-01-06] MEDS: FLUoxetine HCL 20 MG CAPSULE PO SCH (08:08)
[2020-01-06] MEDS: POTASSIUM CHLORIDE 10 MEQ TABLET.ER. PO SCH (08:08)
[2020-01-06] MEDS: PANTOPRAZOLE 40 MG TABLET.DR. PO SCH (08:08)
[2020-01-06] MEDS: IV NORMAL SALINE 1000ML BAG 1,000 ML IV SCH (08:09)
--- NOTE | 2020-01-06 10:50 | PDOC ---
Subjective: Subjective: Pain is better but not resolved. One stool yesterday, none today. No n/v. Thinks could manage at home w/ PO pain meds. Going to stop alcohol. Objective: Objective: Reviewed TEAM LEAD note, d/w Dr. Salazar yesterday. Vital Signs: Vital Signs Date Time Temp Pulse Resp B/P (MAP) Pulse Ox O2 Delivery O2 Flow Rate FiO2 01/06/20 08:09 Room Air 01/06/20 07:00 98.2 64 16 131/71 (91) 98 98.2 Labs: URINE CULTURE RES 1 Final Comment Mixed urogenital mara PE: GEN: NAD, resting LUNGS: CTAB HEART: RRR ABD: NABS, soft, less tender today NEURO/PSYCH: A & O 3 A/P: Chronic/recurrent abd pain, diarrhea, n/v GERD, IBS Alcohol misuse -- Dc okay per GI. Stop/lower alcohol intake, continue PPI, follow-up PRN. Hemodynamically unstable?: No Is patient in severe pain?: No Is NPO status required?: No JULISA VASQUEZ January 06, 2020 10:50
[2020-01-06 11:00] VITALS: BP 135/55
--- NOTE | 2020-01-06 11:29 | PDOC ---
[facility] PROGRESS NOTE Subjective: The pt feels her pain has improved. Talked more in depth about tx options for menorrhagia/dysmenorrhea Objective: Vital Signs: Vital Signs Date Time Temp Pulse Resp B/P (MAP) Pulse Ox O2 Delivery O2 Flow Rate FiO2 01/05/20 07:15 98.3 69 18 109/77 (88) 90 Room Air 98.3 Vital Signs Date Time Temp Pulse Resp B/P (MAP) Pulse Ox O2 Delivery O2 Flow Rate FiO2 01/06/20 11:00 97.9 72 16 135/55 (81) 96 Room Air 97.9 Physical Exam: GENERAL: No apparent distress. Alert and oriented. HEENT: Head normocephalic, atraumatic. NECK: Supple LUNGS: Clear to auscultation. HEART: RRR, S1, S2 present, pulses intact ABDOMEN: Soft, positive bowel sounds. EXTREMITIES: No cyanosis or edema. NEUROLOGIC: Normal speech, normal tone PSYCHIATRIC: Normal affect, normal mood. SKIN: No ulceration. Assessment & Plan: A/P 39yo with abd pain, N/V/D, and ovarian mass 1.) Abd pain etiology thought to be GI, s/p consult 2.) N/V/D improved since admission, GI consulted 3.) Ovarian mass appears to be a normal small follicular cyst, no intervention is necessary. 4.) Right hydrosaplinx no intervention necessary 5.) Menorrhagia chronic issues, Hgb 13.9, discussed tx options, can decide on tx option as outpt 6.) Dysmenorrhea as above 7.) Contraception - none 8.) Tob use 8.) Mild elevation in LFTs AMY RIVAS MD January 06, 2020 11:29
--- NOTE | 2020-01-06 11:31 | NUR ---
SW following. Discussed with RN, pt discharging home today with self care. RN denied any SW needs.
--- NOTE | 2020-01-06 12:02 | DS ---
DATE OF DISCHARGE: 01/06/2020 ADMISSION DIAGNOSIS: Abdominal pain. DISCHARGE DIAGNOSES: 1. Resolving abdominal pain. 2. Possible alcohol issues. 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 She has abdominal pain. We admitted her, did a full workup, nothing came back positive today, I saw her and examined her. She is doing well. She states that she is probably drinking too much beer. I plan to discharge with close outpatient followup. DISPOSITION: Home. ACTIVITY: As tolerated. DIET: Low sodium. MEDICATIONS: Please see MRAD. TOTAL TIME: 31 minutes. NIAL Jun KIM DO DR: KALANI/terry JOB#: [id number] / [id number]
--- NOTE | 2020-01-06 14:37 | NUR ---
Discharge Note: Patient was discharged home with self care. Patient took out her own IV. Patient was given discharge summary/instructions, follow-ups, prescriptions and educational material. Patient did not have any further questions or concerns. Patient ambulated to the ER entrance with all personal belongings accompanied by YUAN Montoya, where patients car was and was driving herself home.
== END 2020-01-06 12:00 | disposition home or self-care (01) | DRG 392 ==
LOC: ER 11:01 → 4 NORTH 16:05 → OBSVTOIN 01-05 14:35
PROVIDERS: ADMIT Internal Medicine; ATTEND Internal Medicine
DX: R10.9 Unspecified abdominal pain (principal); E66.9 Obesity, unspecified; F32.9 Major depressive disorder, single episode, unspecified; F41.9 Anxiety disorder, unspecified; G89.29 Other chronic pain; K21.9 Gastro-esophageal reflux disease without esophagitis; K58.0 Irritable bowel syndrome with diarrhea; N83.209 Unspecified ovarian cyst, unspecified side; N88.8 Other specified noninflammatory disorders of cervix uteri; N92.0 Excessive and frequent menstruation with regular cycle; N94.6 Dysmenorrhea, unspecified; Z68.36 Body mass index [BMI] 36.0-36.9, adult; Z72.0 Tobacco use; Z90.49 Acquired absence of other specified parts of digestive tract; Z83.3 Family history of diabetes mellitus; Z82.49 Family history of ischemic heart disease and other diseases of the circulatory system
CPT/HCPCS: 36415; 74177; 76830; 76856; 80053; 81001; 81025; 83690; 83735; 84484; 85025; 87086; 87491; 87493; 87591; 93005; G0378; G0379; J0500; J1170; J2060; J2270; J2405; J3475; J7030; Q0111; Q9967

== ENCOUNTER 2020-12-05 08:09 | Emergency (ER) | payer OTHER ==
[~2020-12-05] VITALS: Ht 175.3 cm; Wt 109.0 kg
[~2020-12-05 08:09] MED LIST changes: +PANT40TA77 PO
[2020-12-05 08:32] LABS: BILIRUBIN,URINE SMALL (NEG); CLARITY,URINE CLEAR; COLOR,URINE AMBER; NITRITE,URINE NEGATIVE (NEG); PROTEIN,URINE NEGATIVE (NEG-TRACE)
[2020-12-05 08:42] LABS: BACTERIA,URINE MOD /HPF (0-FEW)
[2020-12-05] MEDS ORDERED: ONDANSETRON PF 4 MG/2 ML VIAL. IVP ONE (08:45)
[2020-12-05] MEDS ORDERED: MORPHINE SULFATE 10 MG/ML VIAL. IV ONE (08:45)
[2020-12-05] MEDS ORDERED: IV NORMAL SALINE 1000ML BAG 1,000 ML IV ONE (08:45)
--- NOTE | 2020-12-05 08:54 | ED.ADGEN ---
Past Medical History Past Medical History: Alcoholism, Depression, GERD, UTI Past Surgical History: Cholecystectomy, , Tonsillectomy Smoking Status: Current Every Day Smoker Alcohol Use: Heavy Drug Use: None General Adult EDM: Chief Complaint: ABDOMINAL PAIN HPI: HPI: Patient is a 40-year-old female with a history of GERD Who presents to the emergency room complaining of epigastric abdominal pain that radiates to the right side of her abdomen since yesterday. Pain feels like a strong aching pain and has been constant since onset. Pain has progressively been getting worse. Nothing seems to make it better or worse. She has had some dry heaving and nausea. She is not had any vomiting. She has had minimal amounts of diarrhea. She denies any, constipation. She has had similar pain that a year ago. Patient states that she quit drinking and did drink a large amount on Thursday. She is concerned that she might have pancreatitis. She does have some dysuria and urinary frequency. She denies any kind of fever, chills, sweats. She did have a cholecystectomy after her last baby. Review of Systems: Review of Systems: Complete ROS is negative unless otherwise documented in HPI Current Medications: Current Medications Medications (Trade) Dose Ordered Sig/Jeanie Start Time Stop Time Status Last Admin Dose Admin Hyoscyamine (Anaspaz) 0.25 mg 1X PRN 12/05/20 11:15 12/05/20 11:59 0.25 MG Info (CONTRAST GIVEN -- Rx MONITORING) 1 each PRN DAILY PRN 12/05/20 10:00 12/07/20 09:59 Iohexol (Omnipaque 240 Mg/ml) 50 ml 1X ONCE 12/05/20 09:45 12/05/20 09:47 DC 12/05/20 09:45 50 ML Iohexol (Omnipaque 300 Mg/ml) 75 ml 1X ONCE 12/05/20 09:45 12/05/20 09:47 DC 12/05/20 11:00 75 ML Ketorolac Tromethamine (Toradol 30mg Vial) 30 mg 1X ONCE 12/05/20 09:45 12/05/20 09:46 DC 12/05/20 09:59 30 MG Morphine Sulfate (Morphine Sulfate) 5 mg 1X ONCE 12/05/20 08:45 12/05/20 08:46 DC 12/05/20 08:55 5 MG Multi-Ingredient Mouthwash/Gargle (Gi Cocktail) 20 ml 1X ONCE 12/05/20 11:15 12/05/20 11:16 DC 12/05/20 11:59 20 ML Ondansetron HCl (Zofran) 4 mg 1X ONCE 12/05/20 08:45 12/05/20 08:46 DC 12/05/20 08:55 4 MG Sodium Chloride 1,000 ml @ 1,000 mls/hr 1X ONCE 12/05/20 08:45 12/05/20 09:44 DC 12/05/20 08:55 1,000 MLS/HR Allergies: Allergies: Allergies Coded Allergies Type Severity Reaction Last Updated Verified No Known Drug Allergies 12/20/18 No Physical Exam: PE: General: Awake, alert, NAD. Well Nourished, well hydrated. Cooperative HEENT: Atraumatic, EOMI, PERRL, airway patent, moist oral mucosa Neck: Supple, trachea midline Respiratory: CTA bilaterally, normal effort, no wheezing/crackles CV: RRR, no murmur, cap refill <2 GI: Soft, nondistended, no masses, epigastric and right-sided abdominal tenderness, no rebound, no guarding MSK: No obvious deformities Skin: Warm, dry, intact Neuro: A&O x3, speech NL, sensory and motor grossly intact, no focal deficits Psych: Normal affect, normal mood, not suicidal or homicidal Current Patient Data: Labs: Laboratory Tests Test 12/05/20 08:20 12/05/20 08:22 12/05/20 08:46 Urine Collection Type Unknown Urine Color Sally Urine Clarity Clear Urine pH 7.0 (<5.0-8.0) Urine Specific Pinch >=1.030 (1.000-1.030) Urine Protein Negative mg/dL (NEG-TRACE) Urine Glucose (UA) Negative mg/dL (NEG) Urine Ketones (Stick) Negative mg/dL (NEG) Urine Blood Small (NEG) Urine Nitrite Negative (NEG) Urine Bilirubin Small (NEG) Urine Urobilinogen Dipstick 1.0 mg/dL (0.2 mg/dL) Urine Leukocyte Esterase Trace (NEG) Urine RBC 1-2 /HPF (0-2) Urine WBC 1-4 /HPF (0-4) Urine Squamous Epithelial Cells Many /LPF Urine Bacteria Mod /HPF (0-FEW) POC Urine HCG, Qualitative Hcg negative (Negative) White Blood Count 5.1 x10^3/uL (4.0-11.0) Red Blood Count 4.75 x10^6/uL (3.50-5.40) Hemoglobin 13.5 g/dL (12.0-15.5) Hematocrit 40.1 % (36.0-47.0) Mean Corpuscular Volume 84 fL (79-100) Mean Corpuscular Hemoglobin 28 pg (25-35) Mean Corpuscular Hemoglobin Concent 34 g/dL (31-37) Red Cell Distribution Width 13.3 % (11.5-14.5) Platelet Count 231 x10^3/uL (140-400) Neutrophils (%) (Auto) 53 % (31-73) Lymphocytes (%) (Auto) 36 % (24-48) Monocytes (%) (Auto) 8 % (0-9) Eosinophils (%) (Auto) 2 % (0-3) Basophils (%) (Auto) 1 % (0-3) Neutrophils # (Auto) 2.7 x10^3/uL (1.8-7.7) Lymphocytes # (Auto) 1.8 x10^3/uL (1.0-4.8) Monocytes # (Auto) 0.4 x10^3/uL (0.0-1.1) Eosinophils # (Auto) 0.1 x10^3/uL (0.0-0.7) Basophils # (Auto) 0.0 x10^3/uL (0.0-0.2) Sodium Level 142 mmol/L (136-145) Potassium Level 3.5 mmol/L (3.5-5.1) Chloride Level 106 mmol/L (98-107) Carbon Dioxide Level 20 mmol/L (21-32) L Anion Gap 16 (6-14) H Blood Urea Nitrogen 11 mg/dL (7-20) Creatinine 0.9 mg/dL (0.6-1.0) Estimated GFR (Cockcroft-Gault) 68.7 BUN/Creatinine Ratio 12 (6-20) Glucose Level 113 mg/dL (70-99) H Calcium Level 8.6 mg/dL (8.5-10.1) Total Bilirubin 0.6 mg/dL (0.2-1.0) Aspartate Amino Transferase (AST) 23 U/L (15-37) Alanine Aminotransferase (ALT) 34 U/L (14-59) Alkaline Phosphatase 83 U/L (46-116) Total Protein 7.2 g/dL (6.4-8.2) Albumin 3.6 g/dL (3.4-5.0) Albumin/Globulin Ratio 1.0 (1.0-1.7) Lipase 54 U/L (73-393) L Laboratory Tests 12/05/20 08:46 Laboratory Tests 12/05/20 08:46 Vital Signs: Vital Signs Date Time Temp Pulse Resp B/P (MAP) Pulse Ox O2 Delivery O2 Flow Rate FiO2 12/05/20 10:16 54 156/92 (113) 97 Room Air 12/05/20 08:20 98.2 22 98.2 EKG: EKG: [] Heart Score: C/O Chest Pain: N/A Risk Factors: Risk Factors: DM, Current or recent (<one month) smoker, HTN, HLP, family histo ry of CAD, obesity. Risk Scores: Score 0 - 3: 2.5% MACE over next 6 weeks - Discharge Home Score 4 - 6: 20.3% MACE over next 6 weeks - Admit for Clinical Observation Score 7 - 10: 72.7% MACE over next 6 weeks - Early Invasive Strategies Radiology/Procedures: Radiology/Procedures: [] Course & Med Decision Making: Course & Med Decision Making Pertinent Labs and Imaging studies reviewed. (See chart for details) Patient is a 40-year-old female who presents to the emergency room complaining of upper right-sided abdominal pain. Patient has had a cholecystectomy. It is possible that this could be related to pancreatitis. Patient is overall well- appearing. Abdomen is soft without guarding or rebound. She does not have signs of peritonitis. Abdominal lab work, fluids, nausea medicine, morphine were ordered for symptom control. CT is negative. Lab work is unremarkable. Patient will be placed on Carafate for likely gastritis. Patient's test results and vitals while in the ED were fully reviewed and discussed with the patient. Patient is stable and at this time does not need admission to the hospital. We have discussed strict return precautions and the importance of following up with their Primary Care Physician. Patient stated understanding and was given an opportunity to ask any questions. Patient is in agreement with plan. Dragon Disclaimer: Dragon Disclaimer: This electronic medical record was generated, in whole or in part, using a voice recognition dictation system. Departure Departure Impression: Primary Impression: Gastritis Disposition: 01 DC HOME SELF CARE/HOMELESS Condition: STABLE Referrals: CHANDRA COX MD (PCP) Patient Instructions: Alcoholic Gastritis-Brief, Gastritis, Adult Scripts Sucralfate (CARAFATE) 1 Gm Tablet 1 TAB PO QID for 30 Days, #120 TAB 0 Refills Prov: EMERY IGNACIO MD 12/05/20 EMERY IGNACIO MD Dec 05, 2020 08:54
[2020-12-05 08:55] LABS: BASO % 1 % (0-3); EOS # 0.1 x10^3/uL (0.0-0.7); EOS % 2 % (0-3); HEMATOCRIT 40.1 % (36.0-47.0); HEMOGLOBIN 13.5 g/dL (12.0-15.5); LYMPH # 1.8 x10^3/uL (1.0-4.8); LYMPH % 36 % (24-48); MEAN CORPUSCULAR HEMOGLOBIN 28 pg (25-35); MEAN CORPUSCULAR HGB CONC 34 g/dL (31-37); MEAN CORPUSCULAR VOLUME 84 fL (79-100); MONO # 0.4 x10^3/uL (0.0-1.1); MONO % 8 % (0-9); NEUT # 2.7 x10^3/uL (1.8-7.7); NEUT % 53 % (31-73); PLATELET COUNT 231 x10^3/uL (140-400); RED BLOOD COUNT 4.75 x10^6/uL (3.50-5.40); RED CELL DISTRIBUTION WIDTH 13.3 % (11.5-14.5); WHITE BLOOD COUNT 5.1 x10^3/uL (4.0-11.0)
[2020-12-05 09:06] LABS: CALCIUM 8.6 mg/dL (8.5-10.1); CREATININE 0.9 mg/dL (0.6-1.0); GFR 68.7; POTASSIUM 3.5 mmol/L (3.5-5.1)
[2020-12-05 09:12] LABS: ALBUMIN 3.6 g/dL (3.4-5.0); TOTAL BILIRUBIN 0.6 mg/dL (0.2-1.0); TOTAL PROTEIN 7.2 g/dL (6.4-8.2)
[2020-12-05] MEDS ORDERED: IOHEXOL 300 MG/ML 100ML VIAL. IV ONE (09:45)
[2020-12-05] MEDS ORDERED: KETOROLAC 30 MG/ML VIAL. IVP ONE (09:45)
[2020-12-05] MEDS ORDERED: IOHEXOL 240 MG/ML 50ML VIAL. PO ONE (09:45)
[2020-12-05] MEDS ORDERED: CONTRAST GIVEN. MC PRN (10:00)
[2020-12-05] MEDS ORDERED: HYOSCYAMINE 0.125 MG TAB.RAPDIS PO PRN (11:15)
[2020-12-05] MEDS ORDERED: LIDO:MAALOX 1:1 20 ML SINGLE DOSE. SWSW ONE (11:15)
--- NOTE | 2020-12-05 11:30 | RAD ---
PQRS Compliance Statement: One or more of the following individualized dose reduction techniques were utilized for this examinat ion: 1. Automated exposure control 2. Adjustment of the mA and/or kV according to patient size 3. Use of iterative reconstruction technique CT abdomen/pelvis with contrast 12/05/2020 10:54 AM INDICATION: Abdominal pain, vomiting COMPARISON: CT abdomen/pelvis 01/04/2020 TECHNIQUE: Multiple axial CT images of the abdomen and pelvis were obtained after the intravenous adm inistration of 75 mL Omnipaque 300. Coronal and sagittal reformats are provided. FINDINGS: Lung bases are clear. Heart size is within normal limits. Hypoattenuation of the hepatic parenchyma s uggestive of hepatic steatosis. Liver, spleen, bilateral adrenal glands and pancreas are normal in ap pearance. Abdominal aorta is normal in course and caliber. No pathologically enlarged lymph nodes are identified in abdomen and pelvis. There is no free fluid or free intraperitoneal air. The kidneys en sindhu symmetrically. There is no suspicious renal mass. There is no hydronephrosis. There are no susp ected calculi within the kidneys, ureters or urinary bladder. Urinary bladder is within normal limits in degree of distention. Tampon is identified. Uterus and adnexa are normal by CT. Oral contrast was administered. Opacified bowel loops demonstrate normal mucosal fold pattern. Small and large bowel a re normal in caliber. There is no evidence for bowel obstruction. There are no pericolonic inflammato ry changes. A normal, nondilated appendix is visualized without adjacent inflammatory changes. No leatha picious osseous abnormality is identified. IMPRESSION: No acute abnormality is identified in abdomen and pelvis as described in detail above. Electronically signed by: Gissel Medeiros MD (12/05/2020 11:28 AM) [id number]
[2020-12-05] MEDS ORDERED: SUCR1TAB35 PO (12:43)
[2020-12-05 12:54] VITALS: BP 125/77
== END 2020-12-05 13:03 | disposition home or self-care (01) ==
LOC: ER 08:09
DX: K29.70 Gastritis, unspecified, without bleeding (principal); R10.13 Epigastric pain; R19.7 Diarrhea, unspecified; R30.0 Dysuria; F32.9 Major depressive disorder, single episode, unspecified; K21.9 Gastro-esophageal reflux disease without esophagitis; R10.10 Upper abdominal pain, unspecified; F17.200 Nicotine dependence, unspecified, uncomplicated; Z90.49 Acquired absence of other specified parts of digestive tract; Z98.890 Other specified postprocedural states
CPT/HCPCS: 36415; 74177; 80053; 81001; 81025; 83690; 85025; 96361; 96374; 96375; 99285; J1885; J2270; J2405; J7030; Q9966; Q9967

== ENCOUNTER 2020-12-29 12:47 | Emergency (ER) | payer OTHER ==
[~2020-12-29] VITALS: Ht 175.3 cm; Wt 109.0 kg
[~2020-12-29 12:47] MED LIST changes: +SUCR1TAB35 PO
[2020-12-29 13:49] LABS: BASO % 1 % (0-3); EOS # 0.1 x10^3/uL (0.0-0.7); EOS % 2 % (0-3); HEMATOCRIT 38.9 % (36.0-47.0); HEMOGLOBIN 13.2 g/dL (12.0-15.5); LYMPH # 2.8 x10^3/uL (1.0-4.8); LYMPH % 51 % (24-48); MEAN CORPUSCULAR HEMOGLOBIN 28 pg (25-35); MEAN CORPUSCULAR HGB CONC 34 g/dL (31-37); MEAN CORPUSCULAR VOLUME 83 fL (79-100); MONO # 0.4 x10^3/uL (0.0-1.1); MONO % 8 % (0-9); NEUT % 37 % (31-73); PLATELET COUNT 209 x10^3/uL (140-400); RED BLOOD COUNT 4.67 x10^6/uL (3.50-5.40); RED CELL DISTRIBUTION WIDTH 13.8 % (11.5-14.5); WHITE BLOOD COUNT 5.4 x10^3/uL (4.0-11.0)
[2020-12-29 14:01] LABS: CALCIUM 8.5 mg/dL (8.5-10.1); CREATININE 0.6 mg/dL (0.6-1.0); GFR 109.6; POTASSIUM 3.8 mmol/L (3.5-5.1)
[2020-12-29 14:06] LABS: ALBUMIN 3.9 g/dL (3.4-5.0); ALBUMIN/GLOBULIN RATIO 1.2 (1.0-1.7); MAGNESIUM 2.2 mg/dL (1.8-2.4); TOTAL BILIRUBIN 0.3 mg/dL (0.2-1.0); TOTAL PROTEIN 7.1 g/dL (6.4-8.2)
[2020-12-29 14:16] LABS: ACETAMIN < 2 mcg/ml (10-30); ETHANOL 212 mg/dL (0-10); SALIC < 2.8 mg/dL (2.8-20.0)
[2020-12-29 14:48] LABS: BILIRUBIN,URINE NEGATIVE (NEG); CLARITY,URINE CLEAR; COLOR,URINE YELLOW; NITRITE,URINE NEGATIVE (NEG); PH,URINE 6.5 (<5.0-8.0); PROTEIN,URINE NEGATIVE (NEG-TRACE); UROBILINOGEN,URINE 0.2 mg/dL (0.2 mg/dL)
[2020-12-29 14:55] LABS: BARBITURATES NEG (NEG); BENZODIAZEPINES NEG (NEG); CANNABINOIDS NEG (NEG); COCAINE NEG (NEG); METHADONE NEG (NEG); OPIATES NEG (NEG); PHENCYCLIDINE NEG (NEG)
--- NOTE | 2020-12-29 14:56 | EKG ---
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
[2020-12-29 14:57] LABS: AMPHETAMINE/METHAMPHETAMINE NEG (NEG)
[2020-12-29 15:10] LABS: BACTERIA,URINE MOD /HPF (0-FEW)
[2020-12-29 15:11] LABS: AMORPHOUS SEDIMENT,UR PRESENT /HPF
[2020-12-29 15:12] LABS: RBC,URINE RARE /HPF (0-2); WBC,URINE RARE /HPF (0-4)
[2020-12-29] MEDS ORDERED: IBUPROFEN 400 MG TABLET. PO ONE (16:00)
[2020-12-29] MEDS ORDERED: ACETAMINOPHEN 500 MG TABLET PO ONE (16:00)
--- NOTE | 2020-12-29 17:05 | PHYS DOC ---
Past Medical History Past Medical History: Alcoholism, Anxiety, Depression, GERD, UTI (MARY HATFIELD MD) Past Surgical History: Cholecystectomy, , Tonsillectomy (MARY HATFIELD MD) Smoking Status: Current Every Day Smoker Alcohol Use: Heavy Drug Use: None (MARY HATFIELD MD) Adult General Chief Complaint Chief Complaint: ALCOHOL INTOXICATION HPI HPI Patient is a 40 year old female with a known past medical history of depression presents emergency department complaining of suicidal ideations. Patient notes that she has been having depressive symptoms for the last 6 months after her son secondary to an overdose. Patient states that since that time she developed worsening alcoholism as well as thoughts of harming herself. Patient states that while she was drinking today she had feelings of harming self but denies any specific plan. Patient states that she is just feeling down does not want to be around a more. Denies any fever, chills, nausea vomiting, fall, head injury, headache, dizziness or lightheadedness. (MARY HATFIELD MD) Review of Systems Review of Systems Constitutional: Denies fever or chills [] Eyes: Denies change in visual acuity, redness, or eye pain [] HENT: Denies nasal congestion or sore throat [] Respiratory: Denies cough or shortness of breath [] Cardiovascular: No additional information not addressed in HPI [] GI: Denies abdominal pain, nausea, vomiting, bloody stools or diarrhea [] : Denies dysuria or hematuria [] Musculoskeletal: Denies back pain or joint pain [] Integument: Denies rash or skin lesions [] Neurologic: Denies headache, focal weakness or sensory changes [] Endocrine: Denies polyuria or polydipsia [] All other systems were reviewed and found to be within normal limits, except as documented in this note. (MARY HATFIELD MD) Current Medications Current Medications Current Medications Medications (Trade) Dose Ordered Sig/Jeanie Start Time Stop Time Status Last Admin Dose Admin Acetaminophen (Tylenol) 1,000 mg 1X ONCE 12/29/20 16:00 12/29/20 16:01 DC 12/29/20 15:55 1,000 MG Ibuprofen (Motrin) 800 mg 1X ONCE 12/29/20 16:00 12/29/20 16:01 DC 12/29/20 15:55 800 MG Lorazepam (Ativan Inj) 0.5 mg 1X ONCE 12/29/20 15:30 12/29/20 15:31 DC 12/29/20 15:04 0.5 MG Ondansetron HCl (Zofran) 4 mg 1X ONCE 12/29/20 17:45 12/29/20 17:46 DC 12/29/20 17:59 4 MG ([facility] ) Allergies Allergies Allergies Coded Allergies Type Severity Reaction Last Updated Verified No Known Drug Allergies 12/20/18 No ([facility] ) Physical Exam Physical Exam Constitutional: Well developed, well nourished, no acute distress, non-toxic appearance. [] HENT: Normocephalic, atraumatic, bilateral external ears normal, oropharynx moist, no oral exudates, nose normal. [] Eyes: PERRLA, EOMI, conjunctiva normal, no discharge. [] Neck: Normal range of motion, no tenderness, supple, no stridor. [] Cardiovascular:Heart rate regular rhythm, no murmur [] Lungs & Thorax: Bilateral breath sounds clear to auscultation [] Abdomen: Bowel sounds normal, soft, no tenderness, no masses, no pulsatile masses. [] Skin: Warm, dry, no erythema, no rash. [] Back: No tenderness, no CVA tenderness. [] Extremities: No tenderness, no cyanosis, no clubbing, ROM intact, no edema. [] Neurologic: Alert and oriented X 3, normal motor function, normal sensory funct ion, no focal deficits noted. [] Psychologic: Affect normal, judgement normal, mood normal. [] (MARY HATFIELD MD) Current Patient Data Vital Signs Vital Signs Date Time Temp Pulse Resp B/P (MAP) Pulse Ox O2 Delivery O2 Flow Rate FiO2 12/29/20 19:22 84 114/57 (76) 94 Room Air 12/29/20 13:03 12 ([facility] ) Lab Values Laboratory Tests Test 12/29/20 13:36 12/29/20 14:22 12/29/20 14:36 White Blood Count 5.4 x10^3/uL (4.0-11.0) Red Blood Count 4.67 x10^6/uL (3.50-5.40) Hemoglobin 13.2 g/dL (12.0-15.5) Hematocrit 38.9 % (36.0-47.0) Mean Corpuscular Volume 83 fL (79-100) Mean Corpuscular Hemoglobin 28 pg (25-35) Mean Corpuscular Hemoglobin Concent 34 g/dL (31-37) Red Cell Distribution Width 13.8 % (11.5-14.5) Platelet Count 209 x10^3/uL (140-400) Neutrophils (%) (Auto) 37 % (31-73) Lymphocytes (%) (Auto) 51 % (24-48) H Monocytes (%) (Auto) 8 % (0-9) Eosinophils (%) (Auto) 2 % (0-3) Basophils (%) (Auto) 1 % (0-3) Neutrophils # (Auto) 2.0 x10^3/uL (1.8-7.7) Lymphocytes # (Auto) 2.8 x10^3/uL (1.0-4.8) Monocytes # (Auto) 0.4 x10^3/uL (0.0-1.1) Eosinophils # (Auto) 0.1 x10^3/uL (0.0-0.7) Basophils # (Auto) 0.0 x10^3/uL (0.0-0.2) Sodium Level 144 mmol/L (136-145) Potassium Level 3.8 mmol/L (3.5-5.1) Chloride Level 107 mmol/L (98-107) Carbon Dioxide Level 25 mmol/L (21-32) Anion Gap 12 (6-14) Blood Urea Nitrogen 9 mg/dL (7-20) Creatinine 0.6 mg/dL (0.6-1.0) Estimated GFR (Cockcroft-Gault) 109.6 BUN/Creatinine Ratio 15 (6-20) Glucose Level 87 mg/dL (70-99) Calcium Level 8.5 mg/dL (8.5-10.1) Magnesium Level 2.2 mg/dL (1.8-2.4) Total Bilirubin 0.3 mg/dL (0.2-1.0) Aspartate Amino Transferase (AST) 26 U/L (15-37) Alanine Aminotransferase (ALT) 45 U/L (14-59) Alkaline Phosphatase 78 U/L (46-116) Ammonia 34 mcmol/L (11-34) Creatine Kinase 159 U/L (26-192) RJ-Wgu-U-Type Natriuretic Peptide 20 pg/mL (0-124) Total Protein 7.1 g/dL (6.4-8.2) Albumin 3.9 g/dL (3.4-5.0) Albumin/Globulin Ratio 1.2 (1.0-1.7) Salicylates Level < 2.8 mg/dL (2.8-20.0) L Salicylate Last Dose Date Salicylate Last Dose Time Acetaminophen Level < 2 mcg/ml (10-30) L Acetaminophen Last Dose Date Acetaminophen Last Dose Time Ethyl Alcohol Level 212 mg/dL (0-10) H Urine Collection Type Unknown Urine Color Yellow Urine Clarity Clear Urine pH 6.5 (<5.0-8.0) Urine Specific [place] <=1.005 (1.000-1.030) Urine Protein Negative mg/dL (NEG-TRACE) Urine Glucose (UA) Negative mg/dL (NEG) Urine Ketones (Stick) Negative mg/dL (NEG) Urine Blood Negative (NEG) Urine Nitrite Negative (NEG) Urine Bilirubin Negative (NEG) Urine Urobilinogen Dipstick 0.2 mg/dL (0.2 mg/dL) Urine Leukocyte Esterase Negative (NEG) Urine RBC Rare /HPF (0-2) Urine WBC Rare /HPF (0-4) Urine Squamous Epithelial Cells Many /LPF Urine Amorphous Sediment Present /HPF Urine Bacteria Mod /HPF (0-FEW) Urine Mucus Slight /LPF Urine Opiates Screen Neg (NEG) Urine Methadone Screen Neg (NEG) Urine Barbiturates Neg (NEG) Urine Phencyclidine Screen Neg (NEG) Urine Amphetamine/Methamphetamine Neg (NEG) Urine Benzodiazepines Screen Neg (NEG) Urine Cocaine Screen Neg (NEG) Urine Cannabinoids Screen Neg (NEG) Urine Ethyl Alcohol Pos (NEG) POC Urine HCG, Qualitative Hcg negative (Negative) Laboratory Tests 12/29/20 13:36 Laboratory Tests 12/29/20 13:36 ([facility]) EKG EKG [] (MARY HATFIELD MD) Radiology/Procedures Radiology/Procedures [] (MARY HATFIELD MD) Course & Med Decision Making Course & Med Decision Making Pertinent Labs and Imaging studies reviewed. (See chart for details) 40F presenting with acute alcohol intoxication reported suicidal ideation. Will obtain labs and prepare for medical clearance and anticipate need for psych team evaluation (MARY HATFIELD MD) Course & Med Decision Making I received signout from Dr. Hatfield at shift change. Patient with alcohol intoxication and vague suicidal thoughts while intoxicated. I spoke to PAT teamNarda who reports on sober reevaluation, pt has no h/o SI thoughts/plans and is denying any active or current suicidal thoughts or plans-patient is not a danger to herself or others. Patient is mourning the loss of her son. Patient has placement at [facility] but is unable to transfer patient to this facility. RN arranged EMS transportation. I did not see or evaluate pt due to high volume in ed. Pt was stable at time of dispo to [facility] via ems. (OG CHAMBERLAIN DO) Dragon Disclaimer Dragon Disclaimer This electronic medical record was generated, in whole or in part, using a voice recognition dictation system. (MARY HATFIELD MD) Departure Departure Impression: Primary Impression: Alcohol intoxication Disposition: 62 INPATIENT REHAB FACILITY ([facility]) Condition: STABLE Referrals: CHANDRA COX MD (PCP) MARY HATFIELD MD Dec 29, 2020 17:04 OG CHAMBERLAIN DO Dec 30, 2020 19:52
[2020-12-29] MEDS ORDERED: ONDANSETRON PF 4 MG/2 ML VIAL. IVP ONE (17:45)
[2020-12-29 19:22] VITALS: BP 114/57
== END 2020-12-29 19:25 ==
LOC: ER 12:47 → EEVIPCON 12:47 → ER 19:25
DX: F10.229 Alcohol dependence with intoxication, unspecified (principal); R45.851 Suicidal ideations; F41.9 Anxiety disorder, unspecified; F32.9 Major depressive disorder, single episode, unspecified; F17.200 Nicotine dependence, unspecified, uncomplicated; Z90.49 Acquired absence of other specified parts of digestive tract; Z98.890 Other specified postprocedural states
CPT/HCPCS: 36415; 80053; 80307; 80329; 81001; 81025; 82140; 82550; 83735; 83880; 85025; 93005; 96374; 96375; 99284; G0480; J2060; J2405

== ENCOUNTER 2021-04-08 16:27 | Observation (INO) | payer OTHER ==
[~2021-04-08] VITALS: Ht 175.3 cm; Wt 111.8 kg
--- NOTE | 2021-04-08 16:58 | PHYS DOC ---
Past Medical History Past Medical History: Alcoholism, Anxiety, Depression, GERD, UTI (AMY DAY APRN) Past Surgical History: Cholecystectomy, , Tonsillectomy (AMY DAY APRN) Smoking Status: Current Every Day Smoker Alcohol Use: Heavy Drug Use: None (DANYELLVISHNUAMY Regan APRN) General Adult EDM: Chief Complaint: overdose HPI: HPI: Patient is a 40 year old female presents to the emergency department via EMS with chief complaint of taking 5 [place] tablets 5/325 mg, 3 or 4 tablets of trazodone 150 mg, 1 tablet of Prozac 60 mg at approximately 1530 today along with drinking 9 natural light beers since 11:00 this morning. Patient reports she has been feeling depressed ever since her son in July 2020. Has a hard time dealing with his loss of life. Denies any homicidal or suicidal ideations, states she knows she should not have taken these medications but wanted to sleep so she could get the pain off her mind. Patient reports she has been speaking with our PAT steam conditioner operator Sean about her life events. Patient denies chest pain, shortness of breath, nausea, vomiting, diarrhea, patient does complain of upper abdomen pains near her epigastric area reporting this has been going on for several months, states she has had a GI work-up with upper and lower endoscopies and have not found any physical reason to have pains. Patient believes she may have an ulcer. Patient denies audiovisual hallucinations. Patient denies any other physical complaints or physical concerns. (AMY DAY APRN) HPI: Patient came to the emergency department for overdose on some tramadol, several of them as well as at this time I hydrocodone and alcohol, states she is very depressed over her son but denies any suicidal thoughts at this time, no physical symptoms (KANU HENRIQUEZ MD) Review of Systems: Review of Systems: 14 body systems of review of systems have been reviewed. See HPI for pertinent positives and negative responses, otherwise all other systems are negative, nonpertinent or noncontributory. Constitutional: Negative except as outlined in HPI above. Skin: Negative except as outlined in HPI above. Eyes: Negative except as outlined in HPI above. HENT: Negative except as outlined in HPI above. Respiratory: Negative except as outlined in HPI above. Cardiovascular: Negative except as outlined in HPI above. GI: Negative except as outlined in HPI above. : Negative except as outlined in HPI above. Musculoskeletal: Negative except as outlined in HPI above. Integument: Negative except as outlined in HPI above. Neurologic: Negative except as outlined in HPI above. Endocrine: Negative except as outlined in HPI above. Lymphatic: Negative except as outlined in HPI above. Psychiatric: Negative except as outlined in HPI above. (AMY DAY APRN) Review of Systems: General: no fevers , no chills, no general weakness Eyes: no blurred vision, no diplopia Skin: no rashes Neck: no swelling, no neck stiffness, no neck pain Heme: no bleeding, no lymph node enlargement Ear/Nose/Throat: No sore throat, no runny nose, no hearing loss, no difficulty swallowing Cardiovascular: no Chest pain, no palpitations Respiratory: No dyspnea, no cough, no hemoptysis Gastrointestinal: No abdominal pain, no nausea, no vomiting, no diarrhea, no blood in stool Genitourinary: no dysuria, no hematuria Musculoskeletal: no back pain, no leg pain, no arm pain, no arthralgia Neurologic: no headaches, no dizziness, no focal numbness/tingling, no focal weakness Psych: no depression, no anxiety, no SI/HI *All review of systems are negative other than what is noted above (KANU HENRIQUEZ MD) Heart Score: C/O Chest Pain: No Risk Factors: Risk Factors: DM, Current or recent (<one month) smoker, HTN, HLP, family history of CAD, obesity. Risk Scores: Score 0 - 3: 2.5% MACE over next 6 weeks - Discharge Home Score 4 - 6: 20.3% MACE over next 6 weeks - Admit for Clinical Observation Score 7 - 10: 72.7% MACE over next 6 weeks - Early Invasive Strategies (AMY DAY APRN) C/O Chest Pain: No (KANU HENRIQUEZ MD) Current Medications: Tramadol, hydrocodone for chronic pain, on antidepressants as (KANU HENRIQUEZ MD) Allergies: Allergies: Allergies Coded Allergies Type Severity Reaction Last Updated Verified No Known Drug Allergies 12/20/18 No (AMY DAY APRN) Physical Exam: PE: Constitutional: Well developed, well nourished, no acute distress, non-toxic appearance. 40-year-old female in no apparent distress. HENT: Normocephalic, atraumatic. Eyes: Conjunctiva normal, no discharge. Neck: Normal range of motion, no stridor. Cardiovascular: No cyanosis appreciated, distal cap refill less than 2 seconds. Lungs & Thorax: Patient is in no respiratory distress, no audible adventitious lung sounds appreciated. Abdomen: Nontender, no abnormalities noted. Skin: Warm, dry, no erythema, no rash. Back: No tenderness, no deformities. Extremities: No tenderness, no cyanosis, no clubbing, ROM intact, no edema. Neurologic: Alert and oriented X 3, normal motor function, normal sensory function, no focal deficits noted. Psychologic: Affect normal, judgement abnormal related to ingestion of 5 Hewitt, 3-4 trazodone, 9 beers., mood normal. (AMY DAY APRN) PE: Gen-well appearing, no acute distress Head- normocephalic/atraumatic ENT: atraumatic, oropharynx clear neck: Supple, full range of motion, strength, no rigidity, no JVD lungs: No distress, speaks in full sentences cardiovascular: Regular rate, no JVD, peripheral circulation intact in all extremities abdomen: atraumatic, nondistended musculoskeletal: Full range of motion and strength in all extremities, atraumatic skin: Intact, no rashes neurologic: Alert and oriented x4, no focal deficits psych: Normal mood and affect (KANU HENRIQUEZ MD) EKG: EKG: EKG performed at 1840 by ED nursing staff shows a normal sinus rhythm without other ectopy, [place] interval 0.152, QTc interval 0.456, heart rate 80 bpm, no acute STEMI, no ACS, no acute ischemia appreciated, EKG interpreted by ED attending physician Dr. Henriquez. (AMY DAY APRN) Radiology/Procedures: Radiology/Procedures: [] (AMY DAY APRN) Course & Med Decision Making: Course & Med Decision Making Pertinent Labs and Imaging studies reviewed. (See chart for details) 40-year-old female, vital signs reviewed, was brought to the emergency department concerning alcohol ingestion with home medication ingestion. Patient is not suicidal or homicidal, does have a history of depression, has been in contact with PAT steam conditioner operator Sean prior to arrival to the emergency department. Will defer 1-1 constant observation at this time, patient is calm and cooperative and in no apparent distress. Will contact poison control to review recommendations for patient's ingestion of 9 cans of beer natural light, 5 tablets of hydrocodone 5/325 Hewitt, 3 or 4 tablets of 150 mg trazodone, and 1 Prozac. Will consult PAT steam conditioner operator Sean for evaluation. PAT steam conditioner operator Sean evaluated patient, does not recommend inpatient psychiatric management. Reports patient is not homicidal or suicidal. At 1630 discussed patient case with Poison Control Center Sher[facility] who recommended patient have EKG, CBC, CMP, hCG, urinalysis assay, urine drug screen, EtOH level, salicylate level, acetaminophen level, recommended an IVP/cardiac/O2 sat/temperature/MIX HOUSE OPERATOR monitoring for 6 hours if asymptomatic, if symptomatic, monitor until asymptomatic. End of shift report given to Dr. Henriquez, patient remains hemodynamically stable during ER stay at this time. Dr. Henriquez assumed patient care. (AMY DAY APRN) Course & Med Decision Making Patient was initially seen by the nurse practitioner for this nonlethal overdose, the patient has been monitored now for 6 hours according recommendations of poison control, she is asymptomatic, not suicidal or homicidal, the medical work-up was otherwise negative, I believe she stable for discharge, she was seen in consultation by the psychiatry brim buster and also cleared, will refer her to outpatient for follow-up, will give her a prescription for Narcan but I believe that she is not a threat to harming herself or others and stable for discharge for close outpatient primary care and mental health follow-up update 945pm, patient was still somewhat somnolent, I will let her sleep a couple more hours and then reassess her, blood pressure is improving, protecting her airway and O2 sat on room air is 94% update 12am I had initially discharged the patient however she was still somewhat somnolent, blood pressure was soft, is improving however patient still states that she feels lightheaded upon ambulation so I will admit the patient for further observation, I do believe that after a total of 24 hours of observation she can be cleared to go home, she is not suicidal (KANU HENRIQUEZ MD) Sujata Disclaimer: Sujata Disclaimer: This electronic medical record was generated, in whole or in part, using a voice recognition dictation system. (AMY DAY APRN) Departure Departure Impression: Primary Impression: Alcohol abuse Additional Impression: Depression Qualified Codes: F32.9 - Major depressive disorder, single episode, unspecified Disposition: ADMITTED INPATIENT Condition: STABLE Referrals: CHANDRA COX MD (PCP) 2 days please Patient Instructions: Narcotic Overdose, Overdose, Adult, Suicidal Feelings, How to Help Yourself Additional Instructions: I recommend that you see your primary care doctor in the next 48 hours, I also recommend that you carry the Narcan to be on the safe side and use it if you think you have accidentally overdosed. I also recommend you follow-up with [facility] next 48 hours [facility], [facility]– [place][note 2] [address] [address]. [phone]. 24 hr crisis line: [phone]. [email or web address] Scripts Naloxone HCl (Narcan) 4 Mg [place] 1 SPRAY NS ONCE for 14 Days, #1 INHALER 0 Refills Prov: KANU HENRIQUEZ MD 04/08/21 AMY DAY APRN Apr 08, 2021 16:58 KANU HENRIQUEZ MD Apr 08, 2021 21:33
[2021-04-08] MEDS ORDERED: LIDO:MAALOX 1:1 20 ML SINGLE DOSE. SWSW ONE (17:00)
[2021-04-08] MEDS ORDERED: fentaNYL PF VIAL 100 MCG/2 ML VIAL IVP ONE (18:15)
[2021-04-08 18:45] LABS: CALCIUM 8.2 mg/dL (8.5-10.1); CREATININE 0.7 mg/dL (0.6-1.0); GFR 91.8; POTASSIUM 3.7 mmol/L (3.5-5.1)
[2021-04-08 18:46] LABS: ETHANOL 118 mg/dL (0-10)
--- NOTE | 2021-04-08 18:47 | EKG ---
[facility] [address] [place] [address] Test Date: 2021-04-08 Test Time: 18:40:39 Pat Name: TRACY MITCHELL Department: Room: Gender: F Binding Nicker: : 1980 Requested By: AMY DAY Order Number: [id number] Reading MD: Measurements Intervals [place] Rate: 80 P: 38 ID: [id number] QRS: -6 QRSD: 82 T: 10 QT: 392 QTc: 456 Interpretive Statements SINUS RHYTHM LEFTWARD AXIS OTHERWISE NORMAL ECG RI6.02 Compared to ECG 04/08/2021 18:38:37 No significant changes
[2021-04-08 18:53] LABS: ALBUMIN 3.2 g/dL (3.4-5.0); TOTAL BILIRUBIN 0.2 mg/dL (0.2-1.0); TOTAL PROTEIN 6.5 g/dL (6.4-8.2)
[2021-04-08 18:57] LABS: BASO % 0 % (0-3); EOS # 0.1 x10^3/uL (0.0-0.7); EOS % 2 % (0-3); HEMATOCRIT 37.3 % (36.0-47.0); HEMOGLOBIN 12.4 g/dL (12.0-15.5); LYMPH # 2.4 x10^3/uL (1.0-4.8); LYMPH % 41 % (24-48); MEAN CORPUSCULAR HEMOGLOBIN 28 pg (25-35); MEAN CORPUSCULAR HGB CONC 33 g/dL (31-37); MEAN CORPUSCULAR VOLUME 86 fL (79-100); MONO # 0.4 x10^3/uL (0.0-1.1); MONO % 7 % (0-9); NEUT # 2.9 x10^3/uL (1.8-7.7); NEUT % 50 % (31-73); PLATELET COUNT 215 x10^3/uL (140-400); RED BLOOD COUNT 4.36 x10^6/uL (3.50-5.40); RED CELL DISTRIBUTION WIDTH 15.2 % (11.5-14.5); WHITE BLOOD COUNT 5.8 x10^3/uL (4.0-11.0)
[2021-04-08 19:08] LABS: BILIRUBIN,URINE NEGATIVE (NEG); CLARITY,URINE CLEAR; COLOR,URINE YELLOW; NITRITE,URINE NEGATIVE (NEG); PH,URINE 6.5 (<5.0-8.0); PROTEIN,URINE NEGATIVE (NEG-TRACE); UROBILINOGEN,URINE 0.2 mg/dL (0.2 mg/dL)
[2021-04-08 19:15] LABS: BARBITURATES NEG (NEG); BENZODIAZEPINES NEG (NEG); CANNABINOIDS NEG (NEG); COCAINE NEG (NEG); METHADONE NEG (NEG); OPIATES POS (NEG); PHENCYCLIDINE NEG (NEG)
[2021-04-08 19:16] LABS: BACTERIA,URINE MANY /HPF (0-FEW)
[2021-04-08 19:19] LABS: AMPHETAMINE/METHAMPHETAMINE NEG (NEG)
[2021-04-08 19:39] LABS: ACETAMIN 6.9 mcg/ml (10-30)
[2021-04-08] MEDS ORDERED: IV NORMAL SALINE 1000ML BAG 1,000 ML IV ONE (21:00)
[2021-04-08] MEDS ORDERED: NALO4SPR NS (21:33)
[2021-04-09] MEDS ORDERED: ONDANSETRON PF 4 MG/2 ML VIAL. IVP PRN (00:15)
[2021-04-09 03:00] VITALS: BP 116/61
[2021-04-09] MEDS ORDERED: CLON1TAB PO (03:39)
[2021-04-09] MEDS ORDERED: LEVO1TAB8 PO (03:39)
[2021-04-09] MEDS ORDERED: TRAZ150T49 PO (03:39)
[2021-04-09 07:00] VITALS: BP 156/92
--- NOTE | 2021-04-09 08:14 | PDOC1 ---
History and Physical Date of Admission Date of Admission DATE: 04/09/21 TIME: 08:14 Identification/Chief Complaint Chief Complaint Accidental overdose Source Source: Patient History of Present Illness History of Present Illness Ms Villegas is a 40 year old female with anxiety, depression, GERD who presented to the emergency department via EMS with chief complaint of accidental unintentional medication overdose. She was drinking beer and admitted to taking 5 [place] tablets 5/325 mg, 3 or 4 tablets of trazodone 150 mg, 1 tablet of Prozac 60 mg at approximately 1530 today along with drinking approximately 9 natural light beers since 1100 on 04/08/2021 in the morning. Patient reports she has been feeling depressed ever since her son in July 2020 of an accidental overdose while living back home with her. She has had a difficult time coping and is also now further complicating this with marital separation and starting of division of assets but still cohabitates with her . Denies any homicidal or suicidal ideations, states she knows she should not have taken these medications but wanted to sleep so she could get the pain off her mind. Patient reports she has been speaking with our psychiatric assessment team nurse liaison steamboat captain Sean about her life events. Patient denies chest pain, shortness of breath, nausea, vomiting, diarrhea, patient does complain of upper abdomen pains near her epigastric area reporting this has been going on for several months, states she has had a GI work-up with upper and lower endoscopies and have not found any physical reason to have pains. Patient believes she may have an ulcer. Patient denies audiovisual hallucinations. Patient denies any other physical complaints or physical concerns. EKG normal sinus rhythm without other ectopy, [place] interval 0.152, QTc interval 0.456, heart rate 80 bpm, no acute STEMI, no ACS, no acute ischemia CBC and CMP within normal limits. Acetaminophen level less than 10. She was observed in the ED was too drowsy to be able to go home kept for overnight observation. She denies any suicidal homicidal ideation is just asking to talk to a licensed psychotherapist. She tried "talk therapy" but the person was very nice but was clearly driving a car easily distracted while talking with she has had 2 psychiatry visits but does not any conversations discuss medication refills for her Prozac trazodone and clonazepam. Past Medical History Cardiovascular: No pertinent hx Pulmonary: No pertinent hx GI: GERD Past Surgical History Past Surgical History: Cholecystectomy, , Tonsillectomy Family History Family History: Drug Abuse, Hypertension Social History Smoke: <1 pack per day ALCOHOL: occassional Drugs: None Current Problem List Problem List Problems Medical Problems: (1) Alcohol abuse Status: Acute (2) Depression Status: Acute Current Medications Current Medications Current Medications Multi-Ingredient Mouthwash/Gargle (Gi Cocktail) 20 ml 1X ONCE SWSW Last administered on 04/08/21at 17:17; Start 04/08/21 at 17:00; Stop 04/08/21 at 17:08; Status DC Fentanyl Citrate (Fentanyl 2ml Vial) 50 mcg 1X ONCE IVP Last administered on 04/08/21at 18:32; Start 04/08/21 at 18:15; Stop 04/08/21 at 18:21; Status DC Sodium Chloride 1,000 ml @ 1,000 mls/hr 1X ONCE IV Last administered on 04/08/21at 21:00; Start 04/08/21 at 21:00; Stop 04/08/21 at 21:59; Status DC Ondansetron HCl (Zofran) 4 mg PRN Q8HRS PRN IVP NAUSEA/VOMITING 1ST CHOICE; Start 04/09/21 at 00:15; Stop 04/10/21 at 00:14 Active Scripts Active Reported Aviane (Levonorgestrel-Eth Estradiol) 1 Each Tablet 1 Tab PO DAILY Trazodone Hcl 150 Mg Tablet 1 Tab PO QHS 30 Days Klonopin (Clonazepam) 1 Mg Tablet 1 Tab PO TID Prozac (Fluoxetine Hcl) 40 Mg Capsule 1 Cap PO DAILY Protonix (Pantoprazole Sodium) 40 Mg Tablet.dr 40 Mg PO DAILYAC Allergies Allergies: Coded Allergies: No Known Drug Allergies (Unverified , 12/20/18) ROS General: No: Chills, Night Sweats, Fatigue, Malaise, Appetite, Other PSYCHOLOGICAL ROS: YES: Depression; No: Anxiety, Behavioral Disorder, Concentration difficultie, Decreased libido, Disorientation, Hallucinations, Hostility, Irritablity, Memory difficulties, Mood Swings, Obsessive thoughts, Physical abuse, Sexual abuse, Sleep disturbances, Suicidal ideation, Other Eyes: No Blurry vision, No Decreased vision, No Double vision, No Dry eyes, No Excessive tearing, No Eye Pain, No Itchy Eyes, No Loss of vision, No Photophobia, No Scotomata, No Uses contacts, No Uses glasses, No Other HEENT: No: Heacaches, Visual Changes, Hearing change, Nasal congestion, Nasal discharge, Oral lesions, Sinus pain, Sore Throat, Epistaxis, Sneezing, Snoring, Tinnitus, Vertigo, Vocal changes, Other ALLERGY AND IMMUNOLOGY: No: Hives, Insect Bite Sensitivity, Itchy/Watery Eyes, Nasal Congestion, Post Nasal Drip, Seasonal Allergies, Other Hematological and Lymphatic: No: Bleeding Problems, Blood Clots, Blood Transfusions, Brusing, Night Sweats, Pallor, Swollen Lymph Nodes, Other ENDOCRINE: No: Breast Changes, Galactorrhea, Hair Pattern Changes, Hot Flashes, Malaise/lethargy, Mood Swings, Palpitations, Polydipsia/polyuria, Skin Changes, Temperature Intolerance, Unexpected Weight Changes, Other Breast: No New/Changing Breast Lumps, No Nipple changes, No Nipple discharge, No Other Respiratory: No: Cough, Hemoptysis, Orthopnea, Pleuritic Pain, Shortness of breath, SOB with excertion, Sputum Changes, Stridor, Tachypnea, Wheezing, Other Cardiovascular: No Chest Pain, No Palpitations, No Orthopnea, No Paroxysmal Noc. Dyspnea, No Edema, No Lt Headedness, No Other Gastrointestinal: No Nausea, No Vomiting, No Abdominal Pain, No Diarrhea, No Constipation, No Melena, No Hematochezia, No Other Genitourinary: No Dysuria, No Frequency, No Incontinence, No Hematuria, No Retention, No Discharge, No Urgency, No Pain, No Flank Pain, No Other, No , No , No , No , No , No , No Musculoskeletal: No Gait Disturbance, No Joint Pain, No Joint Stiffness, No Joint Swelling, No Muscle Pain, No Muscular Weakness, No Pain In:, No Swelling In:, No Other Neurological: No Behavorial Changes, No Bowel/Bladder ControlChng, No Confusion, No Dizziness, No Gait Disturbance, No Headaches, No Impaired Coord/balance, No Memory Loss, No Numbness/Tingling, No Seizures, No Speech Problems, No Tremors, No Visual Changes, No Weakness, No Other Skin: No Dry Skin, No Eczema, No Hair Changes, No Lumps, No Mole Changes, No Mottling, No Nail Changes, No Pruritus, No Rash, No Skin Lesion Changes, No Other, No Acne Physical Exam General: Alert, Oriented X3, Cooperative, No acute distress HEENT: Atraumatic, PERRLA, EOMI, Mucous membr. moist/pink Lungs: Clear to auscultation, Normal air movement Heart: S1S2, RRR, no thrills, no rubs, no gallops, no murmurs Abdomen: Normal bowel sounds, Soft, No tenderness, No hepatosplenomegaly, No masses Rectal Exam: not examined Extremities: No clubbing, No cyanosis, No edema, Normal pulses, No tenderness/swelling Skin: No rashes, No breakdown, No significant lesion Neuro: Normal gait, Normal speech, Strength at 5/5 X4 ext, Normal tone, Sensation intact, Cranial nerves 3-12 NL, Reflexes 2+ Psych/Mental Status: Mental status NL, Mood NL Vitals Vitals Vital Signs Date Time Temp Pulse Resp B/P (MAP) Pulse Ox O2 Delivery O2 Flow Rate FiO2 04/09/21 03:40 Room Air 04/09/21 03:00 98.9 65 16 116/61 (79) 96 98.9 Labs Labs Laboratory Tests Test 04/08/21 16:38 04/08/21 18:20 04/09/21 02:30 Urine Collection Type Unknown Urine Color Yellow Urine Clarity Clear Urine pH 6.5 (<5.0-8.0) Urine Specific [place] <=1.005 (1.000-1.030) Urine Protein Negative mg/dL (NEG-TRACE) Urine Glucose (UA) Negative mg/dL (NEG) Urine Ketones (Stick) Negative mg/dL (NEG) Urine Blood Moderate (NEG) Urine Nitrite Negative (NEG) Urine Bilirubin Negative (NEG) Urine Urobilinogen Dipstick 0.2 mg/dL (0.2 mg/dL) Urine Leukocyte Esterase Negative (NEG) Urine RBC 1-2 /HPF (0-2) Urine WBC 5-10 /HPF (0-4) Urine Squamous Epithelial Cells Mod /LPF Urine Bacteria Many /HPF (0-FEW) Urine Opiates Screen Pos (NEG) Urine Methadone Screen Neg (NEG) Urine Barbiturates Neg (NEG) Urine Phencyclidine Screen Neg (NEG) Urine Amphetamine/Methamphetamine Neg (NEG) Urine Benzodiazepines Screen Neg (NEG) Urine Cocaine Screen Neg (NEG) Urine Cannabinoids Screen Neg (NEG) Urine Ethyl Alcohol Pos (NEG) White Blood Count 5.8 x10^3/uL (4.0-11.0) Red Blood Count 4.36 x10^6/uL (3.50-5.40) Hemoglobin 12.4 g/dL (12.0-15.5) Hematocrit 37.3 % (36.0-47.0) Mean Corpuscular Volume 86 fL (79-100) Mean Corpuscular Hemoglobin 28 pg (25-35) Mean Corpuscular Hemoglobin Concent 33 g/dL (31-37) Red Cell Distribution Width 15.2 % (11.5-14.5) Platelet Count 215 x10^3/uL (140-400) Neutrophils (%) (Auto) 50 % (31-73) Lymphocytes (%) (Auto) 41 % (24-48) Monocytes (%) (Auto) 7 % (0-9) Eosinophils (%) (Auto) 2 % (0-3) Basophils (%) (Auto) 0 % (0-3) Neutrophils # (Auto) 2.9 x10^3/uL (1.8-7.7) Lymphocytes # (Auto) 2.4 x10^3/uL (1.0-4.8) Monocytes # (Auto) 0.4 x10^3/uL (0.0-1.1) Eosinophils # (Auto) 0.1 x10^3/uL (0.0-0.7) Basophils # (Auto) 0.0 x10^3/uL (0.0-0.2) Sodium Level 140 mmol/L (136-145) Potassium Level 3.7 mmol/L (3.5-5.1) Chloride Level 103 mmol/L (98-107) Carbon Dioxide Level 27 mmol/L (21-32) Anion Gap 10 (6-14) Blood Urea Nitrogen 8 mg/dL (7-20) Creatinine 0.7 mg/dL (0.6-1.0) Estimated GFR (Cockcroft-Gault) 91.8 BUN/Creatinine Ratio 11 (6-20) Glucose Level 86 mg/dL (70-99) Calcium Level 8.2 mg/dL (8.5-10.1) Total Bilirubin 0.2 mg/dL (0.2-1.0) Aspartate Amino Transf (AST/SGOT) 26 U/L (15-37) Alanine Aminotransferase (ALT/SGPT) 33 U/L (14-59) Alkaline Phosphatase 71 U/L (46-116) Total Protein 6.5 g/dL (6.4-8.2) Albumin 3.2 g/dL (3.4-5.0) Albumin/Globulin Ratio 1.0 (1.0-1.7) Lipase 62 U/L (73-393) Salicylates Level 3.0 mg/dL (2.8-20.0) Salicylate Last Dose Date Salicylate Last Dose Time Acetaminophen Level 6.9 mcg/ml (10-30) Acetaminophen Last Dose Date Unknown Acetaminophen Last Dose Time Unknown Ethyl Alcohol Level 118 mg/dL (0-10) SARS-CoV-2 Antigen (Rapid) Negative (NEGATIVE) Laboratory Tests Test 04/08/21 16:38 04/08/21 18:20 04/09/21 02:30 Urine Collection Type Unknown Urine Color Yellow Urine Clarity Clear Urine pH 6.5 (<5.0-8.0) Urine Specific [place] <=1.005 (1.000-1.030) Urine Protein Negative mg/dL (NEG-TRACE) Urine Glucose (UA) Negative mg/dL (NEG) Urine Ketones (Stick) Negative mg/dL (NEG) Urine Blood Moderate (NEG) Urine Nitrite Negative (NEG) Urine Bilirubin Negative (NEG) Urine Urobilinogen Dipstick 0.2 mg/dL (0.2 mg/dL) Urine Leukocyte Esterase Negative (NEG) Urine RBC 1-2 /HPF (0-2) Urine WBC 5-10 /HPF (0-4) Urine Squamous Epithelial Cells Mod /LPF Urine Bacteria Many /HPF (0-FEW) Urine Opiates Screen Pos (NEG) Urine Methadone Screen Neg (NEG) Urine Barbiturates Neg (NEG) Urine Phencyclidine Screen Neg (NEG) Urine Amphetamine/Methamphetamine Neg (NEG) Urine Benzodiazepines Screen Neg (NEG) Urine Cocaine Screen Neg (NEG) Urine Cannabinoids Screen Neg (NEG) Urine Ethyl Alcohol Pos (NEG) White Blood Count 5.8 x10^3/uL (4.0-11.0) Red Blood Count 4.36 x10^6/uL (3.50-5.40) Hemoglobin 12.4 g/dL (12.0-15.5) Hematocrit 37.3 % (36.0-47.0) Mean Corpuscular Volume 86 fL (79-100) Mean Corpuscular Hemoglobin 28 pg (25-35) Mean Corpuscular Hemoglobin Concent 33 g/dL (31-37) Red Cell Distribution Width 15.2 % (11.5-14.5) Platelet Count 215 x10^3/uL (140-400) Neutrophils (%) (Auto) 50 % (31-73) Lymphocytes (%) (Auto) 41 % (24-48) Monocytes (%) (Auto) 7 % (0-9) Eosinophils (%) (Auto) 2 % (0-3) Basophils (%) (Auto) 0 % (0-3) Neutrophils # (Auto) 2.9 x10^3/uL (1.8-7.7) Lymphocytes # (Auto) 2.4 x10^3/uL (1.0-4.8) Monocytes # (Auto) 0.4 x10^3/uL (0.0-1.1) Eosinophils # (Auto) 0.1 x10^3/uL (0.0-0.7) Basophils # (Auto) 0.0 x10^3/uL (0.0-0.2) Sodium Level 140 mmol/L (136-145) Potassium Level 3.7 mmol/L (3.5-5.1) Chloride Level 103 mmol/L (98-107) Carbon Dioxide Level 27 mmol/L (21-32) Anion Gap 10 (6-14) Blood Urea Nitrogen 8 mg/dL (7-20) Creatinine 0.7 mg/dL (0.6-1.0) Estimated GFR (Cockcroft-Gault) 91.8 BUN/Creatinine Ratio 11 (6-20) Glucose Level 86 mg/dL (70-99) Calcium Level 8.2 mg/dL (8.5-10.1) Total Bilirubin 0.2 mg/dL (0.2-1.0) Aspartate Amino Transf (AST/SGOT) 26 U/L (15-37) Alanine Aminotransferase (ALT/SGPT) 33 U/L (14-59) Alkaline Phosphatase 71 U/L (46-116) Total Protein 6.5 g/dL (6.4-8.2) Albumin 3.2 g/dL (3.4-5.0) Albumin/Globulin Ratio 1.0 (1.0-1.7) Lipase 62 U/L (73-393) Salicylates Level 3.0 mg/dL (2.8-20.0) Salicylate Last Dose Date Salicylate Last Dose Time Acetaminophen Level 6.9 mcg/ml (10-30) Acetaminophen Last Dose Date Unknown Acetaminophen Last Dose Time Unknown Ethyl Alcohol Level 118 mg/dL (0-10) SARS-CoV-2 Antigen (Rapid) Negative (NEGATIVE) VTE Prophylaxis Ordered VTE Prophylaxis Devices: No VTE Pharmacological Prophylaxi: No Assessment/Plan Assessment/Plan A/P: Accidental overdose - counseled on taking meds as prescribed, she is clearly regretful and wants to apologize to her teenage son. - 5 [place] tablets 5/325 mg, 3 or 4 tablets of trazodone 150 mg, 1 tablet of Prozac 60 mg in addition to 9 beers. She is acutely aware Complicated grief - needs better psychotherapy and grief counseling Anxiety, depression - cont psych f/u GERD - cont PPI Smoker - counseled on cessation, she is cutting back ETOH abuse - counseled, she is cutting back FEN - General diet PPX - ambulatory FULL CODE Dispo - can d/c home with self care Justifications for Admission Other Justification SARWAT GUERRERO MD Apr 09, 2021 08:14
--- NOTE | 2021-04-09 09:08 | PDOC3 ---
Discharge Summary Visit Information Date of Admission: Apr 09, 2021 Date of Discharge: Apr 09, 2021 Admitting Diagnosis: Accidental overdose Final Diagnosis Problems Medical Problems: (1) Alcohol abuse Status: Acute (2) Depression Status: Acute Brief Hospital Course Allergies Allergies Coded Allergies Type Severity Reaction Last Updated Verified No Known Drug Allergies 12/20/18 No Vital Signs Vital Signs Date Time Temp Pulse Resp B/P (MAP) Pulse Ox O2 Delivery O2 Flow Rate FiO2 04/09/21 07:00 100.4 90 18 156/92 (113) 97 Room Air 100.4 Lab Results Laboratory Tests Test 04/08/21 16:38 04/08/21 18:20 04/09/21 02:30 Urine Collection Type Unknown Urine Color Yellow Urine Clarity Clear Urine pH 6.5 (<5.0-8.0) Urine Specific [place] <=1.005 (1.000-1.030) Urine Protein Negative mg/dL (NEG-TRACE) Urine Glucose (UA) Negative mg/dL (NEG) Urine Ketones (Stick) Negative mg/dL (NEG) Urine Blood Moderate (NEG) Urine Nitrite Negative (NEG) Urine Bilirubin Negative (NEG) Urine Urobilinogen Dipstick 0.2 mg/dL (0.2 mg/dL) Urine Leukocyte Esterase Negative (NEG) Urine RBC 1-2 /HPF (0-2) Urine WBC 5-10 /HPF (0-4) Urine Squamous Epithelial Cells Mod /LPF Urine Bacteria Many /HPF (0-FEW) Urine Opiates Screen Pos (NEG) Urine Methadone Screen Neg (NEG) Urine Barbiturates Neg (NEG) Urine Phencyclidine Screen Neg (NEG) Urine Amphetamine/Methamphetamine Neg (NEG) Urine Benzodiazepines Screen Neg (NEG) Urine Cocaine Screen Neg (NEG) Urine Cannabinoids Screen Neg (NEG) Urine Ethyl Alcohol Pos (NEG) White Blood Count 5.8 x10^3/uL (4.0-11.0) Red Blood Count 4.36 x10^6/uL (3.50-5.40) Hemoglobin 12.4 g/dL (12.0-15.5) Hematocrit 37.3 % (36.0-47.0) Mean Corpuscular Volume 86 fL (79-100) Mean Corpuscular Hemoglobin 28 pg (25-35) Mean Corpuscular Hemoglobin Concent 33 g/dL (31-37) Red Cell Distribution Width 15.2 % (11.5-14.5) Platelet Count 215 x10^3/uL (140-400) Neutrophils (%) (Auto) 50 % (31-73) Lymphocytes (%) (Auto) 41 % (24-48) Monocytes (%) (Auto) 7 % (0-9) Eosinophils (%) (Auto) 2 % (0-3) Basophils (%) (Auto) 0 % (0-3) Neutrophils # (Auto) 2.9 x10^3/uL (1.8-7.7) Lymphocytes # (Auto) 2.4 x10^3/uL (1.0-4.8) Monocytes # (Auto) 0.4 x10^3/uL (0.0-1.1) Eosinophils # (Auto) 0.1 x10^3/uL (0.0-0.7) Basophils # (Auto) 0.0 x10^3/uL (0.0-0.2) Sodium Level 140 mmol/L (136-145) Potassium Level 3.7 mmol/L (3.5-5.1) Chloride Level 103 mmol/L (98-107) Carbon Dioxide Level 27 mmol/L (21-32) Anion Gap 10 (6-14) Blood Urea Nitrogen 8 mg/dL (7-20) Creatinine 0.7 mg/dL (0.6-1.0) Estimated GFR (Cockcroft-Gault) 91.8 BUN/Creatinine Ratio 11 (6-20) Glucose Level 86 mg/dL (70-99) Calcium Level 8.2 mg/dL (8.5-10.1) Total Bilirubin 0.2 mg/dL (0.2-1.0) Aspartate Amino Transf (AST/SGOT) 26 U/L (15-37) Alanine Aminotransferase (ALT/SGPT) 33 U/L (14-59) Alkaline Phosphatase 71 U/L (46-116) Total Protein 6.5 g/dL (6.4-8.2) Albumin 3.2 g/dL (3.4-5.0) Albumin/Globulin Ratio 1.0 (1.0-1.7) Lipase 62 U/L (73-393) Salicylates Level 3.0 mg/dL (2.8-20.0) Salicylate Last Dose Date Salicylate Last Dose Time Acetaminophen Level 6.9 mcg/ml (10-30) Acetaminophen Last Dose Date Unknown Acetaminophen Last Dose Time Unknown Ethyl Alcohol Level 118 mg/dL (0-10) SARS-CoV-2 Antigen (Rapid) Negative (NEGATIVE) Laboratory Tests Test 04/08/21 16:38 04/08/21 18:20 04/09/21 02:30 Urine Collection Type Unknown Urine Color Yellow Urine Clarity Clear Urine pH 6.5 (<5.0-8.0) Urine Specific [place] <=1.005 (1.000-1.030) Urine Protein Negative mg/dL (NEG-TRACE) Urine Glucose (UA) Negative mg/dL (NEG) Urine Ketones (Stick) Negative mg/dL (NEG) Urine Blood Moderate (NEG) Urine Nitrite Negative (NEG) Urine Bilirubin Negative (NEG) Urine Urobilinogen Dipstick 0.2 mg/dL (0.2 mg/dL) Urine Leukocyte Esterase Negative (NEG) Urine RBC 1-2 /HPF (0-2) Urine WBC 5-10 /HPF (0-4) Urine Squamous Epithelial Cells Mod /LPF Urine Bacteria Many /HPF (0-FEW) Urine Opiates Screen Pos (NEG) Urine Methadone Screen Neg (NEG) Urine Barbiturates Neg (NEG) Urine Phencyclidine Screen Neg (NEG) Urine Amphetamine/Methamphetamine Neg (NEG) Urine Benzodiazepines Screen Neg (NEG) Urine Cocaine Screen Neg (NEG) Urine Cannabinoids Screen Neg (NEG) Urine Ethyl Alcohol Pos (NEG) White Blood Count 5.8 x10^3/uL (4.0-11.0) Red Blood Count 4.36 x10^6/uL (3.50-5.40) Hemoglobin 12.4 g/dL (12.0-15.5) Hematocrit 37.3 % (36.0-47.0) Mean Corpuscular Volume 86 fL (79-100) Mean Corpuscular Hemoglobin 28 pg (25-35) Mean Corpuscular Hemoglobin Concent 33 g/dL (31-37) Red Cell Distribution Width 15.2 % (11.5-14.5) Platelet Count 215 x10^3/uL (140-400) Neutrophils (%) (Auto) 50 % (31-73) Lymphocytes (%) (Auto) 41 % (24-48) Monocytes (%) (Auto) 7 % (0-9) Eosinophils (%) (Auto) 2 % (0-3) Basophils (%) (Auto) 0 % (0-3) Neutrophils # (Auto) 2.9 x10^3/uL (1.8-7.7) Lymphocytes # (Auto) 2.4 x10^3/uL (1.0-4.8) Monocytes # (Auto) 0.4 x10^3/uL (0.0-1.1) Eosinophils # (Auto) 0.1 x10^3/uL (0.0-0.7) Basophils # (Auto) 0.0 x10^3/uL (0.0-0.2) Sodium Level 140 mmol/L (136-145) Potassium Level 3.7 mmol/L (3.5-5.1) Chloride Level 103 mmol/L (98-107) Carbon Dioxide Level 27 mmol/L (21-32) Anion Gap 10 (6-14) Blood Urea Nitrogen 8 mg/dL (7-20) Creatinine 0.7 mg/dL (0.6-1.0) Estimated GFR (Cockcroft-Gault) 91.8 BUN/Creatinine Ratio 11 (6-20) Glucose Level 86 mg/dL (70-99) Calcium Level 8.2 mg/dL (8.5-10.1) Total Bilirubin 0.2 mg/dL (0.2-1.0) Aspartate Amino Transf (AST/SGOT) 26 U/L (15-37) Alanine Aminotransferase (ALT/SGPT) 33 U/L (14-59) Alkaline Phosphatase 71 U/L (46-116) Total Protein 6.5 g/dL (6.4-8.2) Albumin 3.2 g/dL (3.4-5.0) Albumin/Globulin Ratio 1.0 (1.0-1.7) Lipase 62 U/L (73-393) Salicylates Level 3.0 mg/dL (2.8-20.0) Salicylate Last Dose Date Salicylate Last Dose Time Acetaminophen Level 6.9 mcg/ml (10-30) Acetaminophen Last Dose Date Unknown Acetaminophen Last Dose Time Unknown Ethyl Alcohol Level 118 mg/dL (0-10) SARS-CoV-2 Antigen (Rapid) Negative (NEGATIVE) Brief Hospital Course Ms Villegas is a 40 year old female with anxiety, depression, GERD who presented to the emergency department via EMS with chief complaint of accidental unintentional medication overdose. She was drinking beer and admitted to taking 5 [place] tablets 5/325 mg, 3 or 4 tablets of trazodone 150 mg, 1 tablet of Prozac 60 mg at approximately 1530 today along with drinking approximately 9 natural light beers since 1100 on 04/08/2021 in the morning. Patient reports she has been feeling depressed ever since her son in July 2020 of an accidental overdose while living back home with her. She has had a difficult time coping and is also now further complicating this with marital separation and starting of division of assets but still cohabitates with her . Denies any homicidal or suicidal ideations, states she knows she should not have taken these medications but wanted to sleep so she could get the pain off her mind. Patient reports she has been speaking with our psychiatric assessment team nurse liaison paper steamer Sean about her life events. Patient denies chest pain, shortness of breath, nausea, vomiting, diarrhea, patient does complain of upper abdomen pains near her epigastric area reporting this has been going on for several months, states she has had a GI work-up with upper and lower endoscopies and have not found any physical reason to have pains. Patient believes she may have an ulcer. Patient denies audiovisual hallucinations. Patient denies any other physical complaints or physical concerns. EKG normal sinus rhythm without other ectopy, [place] interval 0.152, QTc interval 0.456, heart rate 80 bpm, no acute STEMI, no ACS, no acute ischemia CBC and CMP within normal limits. Acetaminophen level less than 10. She was observed in the ED was too drowsy to be able to go home kept for overnight observation. She denies any suicidal homicidal ideation is just asking to talk to a licensed psychotherapist. She tried "talk therapy" but the person was very nice but was clearly driving a car easily distracted while talking with she has had 2 psychi atry visits but does not any conversations discuss medication refills for her Prozac trazodone and clonazepam. Slept well received 1 L normal saline and after long discussion about setting up refills the patient psychology she can be discharged home under self-care. Problem list: Accidental overdose - counseled on taking meds as prescribed, she is clearly regretful and wants to apologize to her teenage son. - 5 [place] tablets 5/325 mg, 3 or 4 tablets of trazodone 150 mg, 1 tablet of Prozac 60 mg in addition to 9 beers. She is acutely aware Complicated grief - needs better psychotherapy and grief counseling Anxiety, depression - cont psych f/u GERD - cont PPI Smoker - counseled on cessation, she is cutting back ETOH abuse - counseled, she is cutting back 47 minutes spent on same day admit and d/c Discharge Information Condition at Discharge: Improved Follow Up: Weeks (1) Disposition/Orders: D/C to Home Scheduled Clonazepam (Klonopin) 1 Mg Tablet, 1 TAB PO TID for , #90 Ref 1 (Reported) Entered as Reported by: Jeff Alejandre on 04/09/21338 Last Action: Reviewed on 04/09/21339 by Jeff Alejandre Fluoxetine Hcl (Prozac) 40 Mg Capsule, 1 CAP PO DAILY for , #30 Ref 3 (Reported) Entered as Reported by: ARTHUR MORENO RN on 01/04/201746 Last Action: Reviewed on 04/09/21339 by Jeff Alejandre Levonorgestrel-Eth Estradiol (Aviane) 1 Each Tablet, 1 TAB PO DAILY for , #28 Ref 11 (Reported) Entered as Reported by: Jeff Alejandre on 04/09/21338 Last Action: Reviewed on 04/09/21339 by Jeff Alejandre Pantoprazole Sodium (Protonix ) 40 Mg Tablet.dr, 40 MG PO DAILYAC for GERD, (Reported) Entered as Reported by: ARTHUR MORENO RN on 01/04/201746 Last Action: Reviewed on 04/09/21339 by Jeff Alejandre Trazodone Hcl (Trazodone Hcl) 150 Mg Tablet, 1 TAB PO QHS for for 30 Days, #30 Ref 0 (Reported) Entered as Reported by: Jeff Alejandre on 04/09/21338 Last Action: Reviewed on 04/09/21339 by Jeff Alejandre Justicifation of Admission Dx: Justifications for Admission: Justification of Admission Dx: Yes SARWAT GUERRERO MD Apr 09, 2021 09:08
--- NOTE | 2021-04-09 10:35 | NUR ---
SS following for discharge planning. SS reviewed pt chart and discussed with pt RN. Pt is from home and is currently on room air. Pt was positive for ETOH and Opiates. Pt struggling with recent family loss and has been speaking with Sean from the PAT team. Discharge order on the chart for home with self care.
[2021-04-09 10:59] VITALS: BP 140/67
--- NOTE | 2021-04-09 14:42 | NUR ---
Discharge Note: TRACY MITCHELL [address] Discharge instructions and discharge home medications reviewed with Patient and a copy given. All questions have been answered and understanding verbalized. The following instructions and handouts were given: DISCHARGE AND FOLLOW UP INSTRUCTIONS, OVERDOSE EDUCATION Discontinued lines and drains: Peripheral IV intact. Patient discharged to Home or Self Care with Self via Ambulated
--- NOTE | 2021-04-17 10:18 | NUR ---
Late entry - NS bolus started on 04/08/2021 at 2100. Order d/c'd and bolus stopped at 2159 on 04/08/2021.
== END 2021-04-09 14:35 | disposition home or self-care (01) ==
LOC: ER 16:27 → 6 SOUTH 04-09 00:15
PROVIDERS: ADMIT Family Medicine; ATTEND Family Medicine
DX: T50.901A Poisoning by unspecified drugs, medicaments and biological substances, accidental (unintentional), initial encounter (principal); F43.21 Adjustment disorder with depressed mood; K21.9 Gastro-esophageal reflux disease without esophagitis; F41.9 Anxiety disorder, unspecified; Z20.822 Contact with and (suspected) exposure to COVID-19; F17.210 Nicotine dependence, cigarettes, uncomplicated; Z79.899 Other long term (current) drug therapy; Z90.49 Acquired absence of other specified parts of digestive tract; Z90.89 Acquired absence of other organs; Y92.89 Other specified places as the place of occurrence of the external cause
CPT/HCPCS: 36415; 80053; 80307; 80329; 81001; 83690; 85025; 87086; 87147; 87426; 93005; 96361; 96374; 99284; G0378; G0480; J3010; J7030; U0003; U0005; G0379

== ENCOUNTER 2021-04-17 13:10 | Inpatient (IN) | payer OTHER ==
[~2021-04-17] VITALS: Ht 175.3 cm; Wt 108.0 kg
[~2021-04-17 13:10] MED LIST changes: +CLON1TAB PO; +LEVO1TAB8 PO; +NALO4SPR NS; +TRAZ150T49 PO
[2021-04-17 15:19] LABS: BILIRUBIN,URINE SMALL (NEG); CLARITY,URINE CLEAR; NITRITE,URINE NEGATIVE (NEG); PROTEIN,URINE NEGATIVE (NEG-TRACE); UROBILINOGEN,URINE 0.2 mg/dL (0.2 mg/dL)
[2021-04-17 15:25] LABS: AMPHETAMINE/METHAMPHETAMINE NEG (NEG); BARBITURATES NEG (NEG); BENZODIAZEPINES POS (NEG); CANNABINOIDS NEG (NEG); COCAINE NEG (NEG); COLOR,URINE DK YELLOW; METHADONE NEG (NEG); OPIATES NEG (NEG); PHENCYCLIDINE NEG (NEG)
[2021-04-17 15:26] LABS: BACTERIA,URINE MANY /HPF (0-FEW)
[2021-04-17 15:27] LABS: RBC,URINE RARE /HPF (0-2)
[2021-04-17] MEDS ORDERED: IV NORMAL SALINE 1000ML BAG 1,000 ML IV ONE (15:30)
[2021-04-17] MEDS ORDERED: CIPROFLOXACIN 400MG PREMIX 200 ML IV ONE (15:30)
[2021-04-17] MEDS ORDERED: MORPHINE SULFATE 4 MG/ML INJ. IVP ONE (15:30)
[2021-04-17 16:39] LABS: BASO % 1 % (0-3); EOS # 0.1 x10^3/uL (0.0-0.7); EOS % 1 % (0-3); HEMATOCRIT 36.1 % (36.0-47.0); HEMOGLOBIN 12.2 g/dL (12.0-15.5); LYMPH # 2.1 x10^3/uL (1.0-4.8); LYMPH % 35 % (24-48); MEAN CORPUSCULAR HEMOGLOBIN 29 pg (25-35); MEAN CORPUSCULAR HGB CONC 34 g/dL (31-37); MEAN CORPUSCULAR VOLUME 85 fL (79-100); MONO # 0.5 x10^3/uL (0.0-1.1); MONO % 8 % (0-9); NEUT # 3.2 x10^3/uL (1.8-7.7); NEUT % 55 % (31-73); PLATELET COUNT 197 x10^3/uL (140-400); RED BLOOD COUNT 4.24 x10^6/uL (3.50-5.40); RED CELL DISTRIBUTION WIDTH 14.8 % (11.5-14.5); WHITE BLOOD COUNT 5.9 x10^3/uL (4.0-11.0)
[2021-04-17 16:54] LABS: CALCIUM 8.1 mg/dL (8.5-10.1); CREATININE 0.7 mg/dL (0.6-1.0); GFR 91.8; POTASSIUM 3.4 mmol/L (3.5-5.1)
[2021-04-17 17:00] LABS: ALBUMIN 3.2 g/dL (3.4-5.0); ALBUMIN/GLOBULIN RATIO 1.2 (1.0-1.7); TOTAL BILIRUBIN 0.5 mg/dL (0.2-1.0); TOTAL PROTEIN 5.9 g/dL (6.4-8.2)
[2021-04-17 17:17] LABS: ACETAMIN < 2 mcg/ml (10-30); ETHANOL < 10 mg/dL (0-10); SALIC < 2.8 mg/dL (2.8-20.0)
--- NOTE | 2021-04-17 17:28 | PHYS DOC ---
Past Medical History Past Medical History: Alcoholism, Anxiety, Depression, GERD, UTI Past Surgical History: Cholecystectomy, Smoking Status: Never Smoker Alcohol Use: Heavy Drug Use: None General Adult EDM: Chief Complaint: ABDOMINAL PAIN HPI: HPI: Patient is a 40 year old female with a history of alcoholism, anxiety, depression, drug abuse, who presents the ED today complaining of alcohol withdrawals and abdominal pain. Patient states she has had abdominal pain rated as moderate and sharp since yesterday. She states she was seen at [facility] yesterday and was diagnosed with colitis. She states she did not fill the prescription for Augmentin that was given to her. She is also complaining of diarrhea with nausea and vomiting. Denies anything specifically exacerbating or relieving her pain. She is also complaining of drinking alcohol since April 05, 2021 to yesterday. She states she would like help with alcohol use though she states she would like to be admitted to the hospital first before she can go to alcohol detox facility Review of Systems: Review of Systems: Constitutional: Denies fever or chills. [] Eyes: Denies change in visual acuity. [] HENT: Denies nasal congestion or sore throat. [] Respiratory: Denies cough or shortness of breath. [] Cardiovascular: Denies chest pain or edema. [] GI: D reports abdominal pain, nausea vomiting and diarrhea denies bloody stools a. [] : Denies dysuria. [] Musculoskeletal: Denies back pain or joint pain. [] Integument: Denies rash. [] Neurologic: Denies headache, focal weakness or sensory changes. [] Psychiatric: Reports alcohol withdrawal Heart Score: C/O Chest Pain: N/A Risk Factors: Risk Factors: DM, Current or recent (<one month) smoker, HTN, HLP, family history of CAD, obesity. Risk Scores: Score 0 - 3: 2.5% MACE over next 6 weeks - Discharge Home Score 4 - 6: 20.3% MACE over next 6 weeks - Admit for Clinical Observation Score 7 - 10: 72.7% MACE over next 6 weeks - Early Invasive Strategies Current Medications: Current Medications Medications (Trade) Dose Ordered Sig/Jeanie Start Time Stop Time Status Last Admin Dose Admin Ciprofloxacin/ Dextrose 200 ml @ 200 mls/hr 1X ONCE 04/17/21 15:30 04/17/21 16:29 DC Lorazepam (Ativan Inj) 1 mg 1X ONCE 04/17/21 15:30 04/17/21 15:31 DC Morphine Sulfate (Morphine Sulfate) 4 mg 1X ONCE 04/17/21 15:30 04/17/21 15:31 DC Sodium Chloride 1,000 ml @ 1,000 mls/hr 1X ONCE 04/17/21 15:30 04/17/21 16:29 DC Allergies: Allergies: Allergies Coded Allergies Type Severity Reaction Last Updated Verified No Known Drug Allergies 12/20/18 No Physical Exam: PE: Constitutional: Well developed, well nourished, no acute distress, non-toxic appearance. [] HENT: Normocephalic, atraumatic, bilateral external ears normal, oropharynx moist, no oral exudates, nose normal. [] Eyes: PERRLA, EOMI, conjunctiva normal, no discharge. [] Neck: Normal range of motion, no tenderness, supple, no stridor. [] Cardiovascular:Heart rate regular rhythm, no murmur [] Lungs & Thorax: Bilateral breath sounds clear to auscultation [] Abdomen: Bowel sounds normal, soft, diffuse tenderness throughout the abdomen, no masses, no pulsatile masses. [] Skin: Warm, dry, no erythema, no rash. [] Back: No tenderness, no CVA tenderness. [] Extremities: No tenderness, no cyanosis, no clubbing, ROM intact, no edema. [] Neurologic: Alert and oriented X 3, normal motor function, normal sensory function, no focal deficits noted. [] Psychologic: Affect normal, judgement normal, mood normal. [] Current Patient Data: Labs: Laboratory Tests Test 04/17/21 14:40 04/17/21 14:49 04/17/21 16:30 Urine Collection Type Void Urine Color Dk yellow Urine Clarity Clear Urine pH 7.0 (<5.0-8.0) Urine Specific [place] 1.020 (1.000-1.030) Urine Protein Negative mg/dL (NEG-TRACE) Urine Glucose (UA) Negative mg/dL (NEG) Urine Ketones (Stick) 15 mg/dL (NEG) Urine Blood Negative (NEG) Urine Nitrite Negative (NEG) Urine Bilirubin Small (NEG) Urine Urobilinogen Dipstick 0.2 mg/dL (0.2 mg/dL) Urine Leukocyte Esterase Moderate (NEG) Urine RBC Rare /HPF (0-2) Urine WBC 1-4 /HPF (0-4) Urine Squamous Epithelial Cells Many /LPF Urine Bacteria Many /HPF (0-FEW) Urine Opiates Screen Neg (NEG) Urine Methadone Screen Neg (NEG) Urine Barbiturates Neg (NEG) Urine Phencyclidine Screen Neg (NEG) Urine Amphetamine/Methamphetamine Neg (NEG) Urine Benzodiazepines Screen Pos (NEG) Urine Cocaine Screen Neg (NEG) Urine Cannabinoids Screen Neg (NEG) Urine Ethyl Alcohol Neg (NEG) POC Urine HCG, Qualitative Hcg negative (Negative) White Blood Count 5.9 x10^3/uL (4.0-11.0) Red Blood Count 4.24 x10^6/uL (3.50-5.40) Hemoglobin 12.2 g/dL (12.0-15.5) Hematocrit 36.1 % (36.0-47.0) Mean Corpuscular Volume 85 fL (79-100) Mean Corpuscular Hemoglobin 29 pg (25-35) Mean Corpuscular Hemoglobin Concent 34 g/dL (31-37) Red Cell Distribution Width 14.8 % (11.5-14.5) H Platelet Count 197 x10^3/uL (140-400) Neutrophils (%) (Auto) 55 % (31-73) Lymphocytes (%) (Auto) 35 % (24-48) Monocytes (%) (Auto) 8 % (0-9) Eosinophils (%) (Auto) 1 % (0-3) Basophils (%) (Auto) 1 % (0-3) Neutrophils # (Auto) 3.2 x10^3/uL (1.8-7.7) Lymphocytes # (Auto) 2.1 x10^3/uL (1.0-4.8) Monocytes # (Auto) 0.5 x10^3/uL (0.0-1.1) Eosinophils # (Auto) 0.1 x10^3/uL (0.0-0.7) Basophils # (Auto) 0.0 x10^3/uL (0.0-0.2) Sodium Level 139 mmol/L (136-145) Potassium Level 3.4 mmol/L (3.5-5.1) L Chloride Level 104 mmol/L (98-107) Carbon Dioxide Level 23 mmol/L (21-32) Anion Gap 12 (6-14) Blood Urea Nitrogen 7 mg/dL (7-20) Creatinine 0.7 mg/dL (0.6-1.0) Estimated GFR (Cockcroft-Gault) 91.8 BUN/Creatinine Ratio 10 (6-20) Glucose Level 78 mg/dL (70-99) Calcium Level 8.1 mg/dL (8.5-10.1) L Total Bilirubin 0.5 mg/dL (0.2-1.0) Aspartate Amino Transferase (AST) 67 U/L (15-37) H Alanine Aminotransferase (ALT) 62 U/L (14-59) H Alkaline Phosphatase 69 U/L (46-116) Total Protein 5.9 g/dL (6.4-8.2) L Albumin 3.2 g/dL (3.4-5.0) L Albumin/Globulin Ratio 1.2 (1.0-1.7) Lipase 59 U/L (73-393) L Salicylates Level < 2.8 mg/dL (2.8-20.0) L Salicylate Last Dose Date Salicylate Last Dose Time Acetaminophen Level < 2 mcg/ml (10-30) L Acetaminophen Last Dose Date Acetaminophen Last Dose Time Ethyl Alcohol Level < 10 mg/dL (0-10) Laboratory Tests 04/17/21 16:30 Laboratory Tests 04/17/21 16:30 Vital Signs: Vital Signs Date Time Temp Pulse Resp B/P (MAP) Pulse Ox O2 Delivery O2 Flow Rate FiO2 04/17/21 14:40 98.1 72 20 167/91 (91) 97 Room Air 98.1 EKG: EKG: [] Radiology/Procedures: Radiology/Procedures: [] Course & Med Decision Making: Course & Med Decision Making Pertinent Labs and Imaging studies reviewed. (See chart for details) This is a 40-year-old female patient presenting to the ED today complaining of generalized abdominal pain, nausea vomiting and diarrhea since yesterday. Patient was diagnosed with colitis yesterday at [facility]. She did not fill the prescription for antibiotics. She is also complaining of alcohol withdrawal and would like to get help. Sean from the [facility] team came and evaluated patient, no bed is open in any detox facility Spoke to Dr. Roberts who accepted patient for admission Labs are still pending Sujata Disclaimer: Sujata Disclaimer: This electronic medical record was generated, in whole or in part, using a voice recognition dictation system. Departure Departure Impression: Primary Impression: Alcohol withdrawal Qualified Codes: F10.239 - Alcohol dependence with withdrawal, unspecified Additional Impressions: Intractable abdominal pain Vomiting and diarrhea Disposition: ADMITTED INPATIENT Condition: STABLE Referrals: CHANDRA COX MD (PCP) MARIELLA MORAN CALENDER OPERATOR Apr 17, 2021 17:28
[2021-04-17] MEDS ORDERED: ACETAMINOPHEN 325 MG TABLET. PO PRN ×2 (17:30→18:15)
[2021-04-17] MEDS ORDERED: ONDANSETRON PF 4 MG/2 ML VIAL. IVP PRN ×2 (17:30→18:15)
--- NOTE | 2021-04-17 18:07 | PDOC1 ---
History and Physical Date of Service: DOS: DATE: 04/17/21 TIME: 17:59 Chief Complaint: Chief Complain: Abdominal pain History of Present Illness: HPI: 40 year old female with a history of alcoholism, anxiety, depression, drug abuse, who presents the ED today complaining of alcohol withdrawals and abdominal pain. Patient states she has had abdominal pain rated as moderate and sharp since yesterday. She states she was seen at [facility] yesterday and was diagnosed with colitis. She states she did not fill the prescription for Augmentin that was given to her. She is also complaining of diarrhea with nausea and vomiting. Denies anything specifically exacerbating or relieving her pain. She is also complaining of drinking alcohol since April 05, 2021 to yesterday. She states she would like help with alcohol use though she states she would like to be admitted to the hospital first to work-up her abdominal pain before she can go to alcohol detox facility. Apparently she was evaluated by Sean from the PAT team and stated to the patient that there is no bed open in any detox facility at this time. Past Medical/Surgical History: PMH/PSH: Past Medical History: Alcoholism, Anxiety, Depression, GERD Past Surgical History: Cholecystectomy, Allergies: Allergies: Coded Allergies: No Known Drug Allergies (Unverified , 12/20/18) Family History: Family History: Reviewed with no relevant findings Social History: Social History: Smoking Status: Never Smoker Alcohol Use: Heavy Drug Use: None Current Medications: Current Medications Current Medications Sodium Chloride 1,000 ml @ 1,000 mls/hr 1X ONCE IV Last administered on 07/28at 17:34; Start 04/17/21 at 15:30; Stop 04/17/21 at 16:29; Status DC Ciprofloxacin/ Dextrose 200 ml @ 200 mls/hr 1X ONCE IV Last administered on 04/17/21at 15:47; Start 04/17/21 at 15:30; Stop 04/17/21 at 16:29; Status DC Lorazepam (Ativan Inj) 1 mg 1X ONCE IVP Last administered on 04/17/21at 17:35; Start 04/17/21 at 15:30; Stop 04/17/21 at 15:31; Status DC Morphine Sulfate (Morphine Sulfate) 4 mg 1X ONCE IVP Last administered on 04/17/21at 17:38; Start 04/17/21 at 15:30; Stop 04/17/21 at 15:31; Status DC Ondansetron HCl (Zofran) 4 mg PRN Q8HRS PRN IVP NAUSEA/VOMITING; Start 04/17/21 at 17:30; Stop 04/18/21 at 17:29 Morphine Sulfate (Morphine Sulfate) 4 mg PRN Q2HR PRN IVP PAIN; Start 04/17/21 at 17:30; Stop 04/18/21 at 17:29 Acetaminophen (Tylenol) 650 mg PRN Q4HRS PRN PO FEVER > 100.3'F; Start 04/17/21 at 17:30; Stop 04/18/21 at 17:29 Active Scripts Active Reported Aviane (Levonorgestrel-Eth Estradiol) 1 Each Tablet 1 Tab PO DAILY Trazodone Hcl 150 Mg Tablet 1 Tab PO QHS 30 Days Klonopin (Clonazepam) 1 Mg Tablet 1 Tab PO TID Prozac (Fluoxetine Hcl) 40 Mg Capsule 1 Cap PO DAILY Protonix (Pantoprazole Sodium) 40 Mg Tablet. 40 Mg PO DAILYAC ROS: Review of Systems Review of System REVIEW OF SYSTEMS: GENERAL: Denies weakness SKIN: No bruising, hair changes or rashes. EYES: No blurred, double or loss of vision. NOSE AND THROAT: No history of nosebleeds, hoarseness or sore throat. HEART: No history of palpitations, chest pain or shortness of breath on exertion. LUNGS: Denies cough, hemoptysis, wheezing or shortness of breath. GASTROINTESTINAL: Denies changes in appetite, nausea, vomiting, diarrhea or constipation. GENITOURINARY: No history of frequency, urgency, hesitancy or nocturia. NEUROLOGIC: Denies history of numbness, tingling, or tremor. PSYCHIATRIC: No history of panic, anxiety or depression. ENDOCRINE: No history of heat or cold intolerance, polyuria or polydipsia. EXTREMITIES: Denies joint pain, pain on walking or stiffness. Physical Exam: Vital Signs: Vital Signs Date Time Temp Pulse Resp B/P (MAP) Pulse Ox O2 Delivery O2 Flow Rate FiO2 04/17/21 17:38 20 99 Room Air 04/17/21 14:40 98.1 72 167/91 (91) 98.1 Physcial Exam: General: Well developed, well nourished, no acute distress, well appearing HEENT: Pupils equally round and reactive to light, EOMI, no discharge, normal conjunctiva Neck: Supple, no nuchal rigidity, no JVD, trachea midline, no tenderness Cardiac: RRR, no murmurs, no gallops, no rubs Chest/Lungs: CTAB, no wheeze, no rhonchi, no crackles Abdomen: soft, non-distended, no guarding, no peritoneal signs, epigastric discomfort Back: No tenderness Extremities: no edema, pulses intact, non-tender,capillary refill <3 sec bilateral upper and lower extremities, Neuro: Alert and oriented x 4, no focal deficits, normal speech Labs: Labs: Laboratory Tests Test 04/17/21 14:40 04/17/21 14:49 04/17/21 16:30 Urine Collection Type Void Urine Color Dk yellow Urine Clarity Clear Urine pH 7.0 (<5.0-8.0) Urine Specific Branch 1.020 (1.000-1.030) Urine Protein Negative mg/dL (NEG-TRACE) Urine Glucose (UA) Negative mg/dL (NEG) Urine Ketones (Stick) 15 mg/dL (NEG) Urine Blood Negative (NEG) Urine Nitrite Negative (NEG) Urine Bilirubin Small (NEG) Urine Urobilinogen Dipstick 0.2 mg/dL (0.2 mg/dL) Urine Leukocyte Esterase Moderate (NEG) Urine RBC Rare /HPF (0-2) Urine WBC 1-4 /HPF (0-4) Urine Squamous Epithelial Cells Many /LPF Urine Bacteria Many /HPF (0-FEW) Urine Opiates Screen Neg (NEG) Urine Methadone Screen Neg (NEG) Urine Barbiturates Neg (NEG) Urine Phencyclidine Screen Neg (NEG) Urine Amphetamine/Methamphetamine Neg (NEG) Urine Benzodiazepines Screen Pos (NEG) Urine Cocaine Screen Neg (NEG) Urine Cannabinoids Screen Neg (NEG) Urine Ethyl Alcohol Neg (NEG) Bedside Urine HCG, Qualitative Hcg negative (Negative) White Blood Count 5.9 x10^3/uL (4.0-11.0) Red Blood Count 4.24 x10^6/uL (3.50-5.40) Hemoglobin 12.2 g/dL (12.0-15.5) Hematocrit 36.1 % (36.0-47.0) Mean Corpuscular Volume 85 fL (79-100) Mean Corpuscular Hemoglobin 29 pg (25-35) Mean Corpuscular Hemoglobin Concent 34 g/dL (31-37) Red Cell Distribution Width 14.8 % (11.5-14.5) Platelet Count 197 x10^3/uL (140-400) Neutrophils (%) (Auto) 55 % (31-73) Lymphocytes (%) (Auto) 35 % (24-48) Monocytes (%) (Auto) 8 % (0-9) Eosinophils (%) (Auto) 1 % (0-3) Basophils (%) (Auto) 1 % (0-3) Neutrophils # (Auto) 3.2 x10^3/uL (1.8-7.7) Lymphocytes # (Auto) 2.1 x10^3/uL (1.0-4.8) Monocytes # (Auto) 0.5 x10^3/uL (0.0-1.1) Eosinophils # (Auto) 0.1 x10^3/uL (0.0-0.7) Basophils # (Auto) 0.0 x10^3/uL (0.0-0.2) Sodium Level 139 mmol/L (136-145) Potassium Level 3.4 mmol/L (3.5-5.1) Chloride Level 104 mmol/L (98-107) Carbon Dioxide Level 23 mmol/L (21-32) Anion Gap 12 (6-14) Blood Urea Nitrogen 7 mg/dL (7-20) Creatinine 0.7 mg/dL (0.6-1.0) Estimated GFR (Cockcroft-Gault) 91.8 BUN/Creatinine Ratio 10 (6-20) Glucose Level 78 mg/dL (70-99) Calcium Level 8.1 mg/dL (8.5-10.1) Total Bilirubin 0.5 mg/dL (0.2-1.0) Aspartate Amino Transf (AST/SGOT) 67 U/L (15-37) Alanine Aminotransferase (ALT/SGPT) 62 U/L (14-59) Alkaline Phosphatase 69 U/L (46-116) Total Protein 5.9 g/dL (6.4-8.2) Albumin 3.2 g/dL (3.4-5.0) Albumin/Globulin Ratio 1.2 (1.0-1.7) Lipase 59 U/L (73-393) Salicylates Level < 2.8 mg/dL (2.8-20.0) Salicylate Last Dose Date Salicylate Last Dose Time Acetaminophen Level < 2 mcg/ml (10-30) Acetaminophen Last Dose Date Acetaminophen Last Dose Time Ethyl Alcohol Level < 10 mg/dL (0-10) Laboratory Tests Test 04/17/21 14:40 04/17/21 14:49 04/17/21 16:30 Urine Collection Type Void Urine Color Dk yellow Urine Clarity Clear Urine pH 7.0 (<5.0-8.0) Urine Specific Branch 1.020 (1.000-1.030) Urine Protein Negative mg/dL (NEG-TRACE) Urine Glucose (UA) Negative mg/dL (NEG) Urine Ketones (Stick) 15 mg/dL (NEG) Urine Blood Negative (NEG) Urine Nitrite Negative (NEG) Urine Bilirubin Small (NEG) Urine Urobilinogen Dipstick 0.2 mg/dL (0.2 mg/dL) Urine Leukocyte Esterase Moderate (NEG) Urine RBC Rare /HPF (0-2) Urine WBC 1-4 /HPF (0-4) Urine Squamous Epithelial Cells Many /LPF Urine Bacteria Many /HPF (0-FEW) Urine Opiates Screen Neg (NEG) Urine Methadone Screen Neg (NEG) Urine Barbiturates Neg (NEG) Urine Phencyclidine Screen Neg (NEG) Urine Amphetamine/Methamphetamine Neg (NEG) Urine Benzodiazepines Screen Pos (NEG) Urine Cocaine Screen Neg (NEG) Urine Cannabinoids Screen Neg (NEG) Urine Ethyl Alcohol Neg (NEG) Bedside Urine HCG, Qualitative Hcg negative (Negative) White Blood Count 5.9 x10^3/uL (4.0-11.0) Red Blood Count 4.24 x10^6/uL (3.50-5.40) Hemoglobin 12.2 g/dL (12.0-15.5) Hematocrit 36.1 % (36.0-47.0) Mean Corpuscular Volume 85 fL (79-100) Mean Corpuscular Hemoglobin 29 pg (25-35) Mean Corpuscular Hemoglobin Concent 34 g/dL (31-37) Red Cell Distribution Width 14.8 % (11.5-14.5) Platelet Count 197 x10^3/uL (140-400) Neutrophils (%) (Auto) 55 % (31-73) Lymphocytes (%) (Auto) 35 % (24-48) Monocytes (%) (Auto) 8 % (0-9) Eosinophils (%) (Auto) 1 % (0-3) Basophils (%) (Auto) 1 % (0-3) Neutrophils # (Auto) 3.2 x10^3/uL (1.8-7.7) Lymphocytes # (Auto) 2.1 x10^3/uL (1.0-4.8) Monocytes # (Auto) 0.5 x10^3/uL (0.0-1.1) Eosinophils # (Auto) 0.1 x10^3/uL (0.0-0.7) Basophils # (Auto) 0.0 x10^3/uL (0.0-0.2) Sodium Level 139 mmol/L (136-145) Potassium Level 3.4 mmol/L (3.5-5.1) Chloride Level 104 mmol/L (98-107) Carbon Dioxide Level 23 mmol/L (21-32) Anion Gap 12 (6-14) Blood Urea Nitrogen 7 mg/dL (7-20) Creatinine 0.7 mg/dL (0.6-1.0) Estimated GFR (Cockcroft-Gault) 91.8 BUN/Creatinine Ratio 10 (6-20) Glucose Level 78 mg/dL (70-99) Calcium Level 8.1 mg/dL (8.5-10.1) Total Bilirubin 0.5 mg/dL (0.2-1.0) Aspartate Amino Transf (AST/SGOT) 67 U/L (15-37) Alanine Aminotransferase (ALT/SGPT) 62 U/L (14-59) Alkaline Phosphatase 69 U/L (46-116) Total Protein 5.9 g/dL (6.4-8.2) Albumin 3.2 g/dL (3.4-5.0) Albumin/Globulin Ratio 1.2 (1.0-1.7) Lipase 59 U/L (73-393) Salicylates Level < 2.8 mg/dL (2.8-20.0) Salicylate Last Dose Date Salicylate Last Dose Time Acetaminophen Level < 2 mcg/ml (10-30) Acetaminophen Last Dose Date Acetaminophen Last Dose Time Ethyl Alcohol Level < 10 mg/dL (0-10) Images: Images CT abdomen pelvis completed in November 2020 was reviewed was negative for any acute intra-abdominal findings at the time. Assessment/Plan Assessment/Plan Acute EtOH withdrawal Acute abdominal pain due to alcohol misuse and history of GERD and recent colitis B12 deficiency Moderate protein malnutrition Mild hypokalemia History of alcohol abuse Admit to hospital service for further management Continue inpatient detox CIWA protocol Continue Protonix will increase to 40 mg twice daily Consider GI consult Vitamin B12 intramuscular shot daily Continue IV fluids IV electrolyte replacement as needed SCD and ambulation for DVT prophylaxis Continue Protonix GI prophylaxis ADA diet Full code Discussed with RN and SW Disposition inpatient management as above Surrogate decision maker is Ally Villegas Justifications for Admission Other Justification KATE GRIFFIN MD Apr 17, 2021 18:07
[2021-04-17] MEDS ORDERED: DEXTROSE 50% 25 GM / 50ML DISP.SYRIN. IV PRN (18:15)
[2021-04-17] MEDS ORDERED: HYDROcodone/APAP 5/325MG 1 TAB TABLET PO PRN (18:15)
[2021-04-17] MEDS ORDERED: cloNIDine HCL 0.1 MG TABLET PO PRN (18:15)
[2021-04-17] MEDS ORDERED: PROCHLORPERAZINE 10 MG/2 ML VIAL. IV PRN (18:15)
[2021-04-17] MEDS ORDERED: DOCUSATE SODIUM 100 MG CAPSULE. PO PRN (18:15)
[2021-04-17] MEDS ORDERED: SENNOSIDES 8.6 MG TABLET PO PRN (18:15)
[2021-04-17] MEDS ORDERED: HALOPERIDOL LACTATE 5 MG/ML VIAL. IVP PRN (18:15)
--- NOTE | 2021-04-17 19:45 | NUR ---
Patient assessed and cleared by PAT team in ED. Addendum: 04/17/21 at 2239 by DHARA ARAUJO RN Amended: Links added.
[2021-04-17] MEDS: IV NORMAL SALINE 1000ML BAG 1,000 ML IV SCH (19:58)
[2021-04-17] MEDS: MORPHINE SULFATE 4 MG/ML INJ. IVP PRN (19:59)
--- NOTE | 2021-04-17 20:00 | NUR ---
ADMIT NOTE The patient, TRACY MITCHELL, 40 y/o, F admitted by KATE GRIFFIN MD, was given written information regarding hospital policies, unit procedures and contact persons. All patient belongings left with patient at time of admission. Patient orientated to room, call light within reach and plan of care discussed; patient on CIWA protocol. Patient's allergies reviewed and home medications/preferred pharmacy verified. Patient c/o severe abdominal pain and CIWA score= 18; pain meds and Ativan administered. Patient remains in bed, bed in lowest/locked position, and call light within reach; no other needs voiced by patient at this time.
[2021-04-17 20:15] VITALS: BP 166/107
[2021-04-17] MEDS: HYDROcodone/APAP 5/325MG 1 TAB TABLET PO PRN (21:41)
[2021-04-17] MEDS: PANTOPRAZOLE 40 MG TABLET.DR. PO SCH (21:41)
[2021-04-17] MEDS: traZODone 50 MG TABLET. PO SCH (21:41)
[2021-04-17 23:00] VITALS: BP 108/46
[2021-04-17] MEDS ORDERED: CYANOCOBALAMIN (VITAMIN B-12) 1,000 MCG/ML VIAL. IM ONE (23:30)
[2021-04-18] MEDS: MORPHINE SULFATE 4 MG/ML INJ. IVP PRN ×5 (00:27→11:35)
[2021-04-18 03:58] VITALS: BP 103/61
[2021-04-18] MEDS: HYDROcodone/APAP 5/325MG 1 TAB TABLET PO PRN ×3 (05:40→19:52)
[2021-04-18] MEDS: PANTOPRAZOLE 40 MG TABLET.DR. PO SCH ×2 (05:40→16:30)
[2021-04-18] MEDS: IV NORMAL SALINE 1000ML BAG 1,000 ML IV SCH ×3 (05:41→23:56)
[2021-04-18] MEDS ORDERED: CYANOCOBALAMIN (VITAMIN B-12) 1,000 MCG/ML VIAL. IM ONE (06:00)
[2021-04-18 06:51] VITALS: BP 97/65
[2021-04-18] MEDS: ASCORBIC ACID 500 MG TABLET PO SCH (08:58)
[2021-04-18] MEDS: FOLIC ACID 1 MG TABLET. PO SCH (08:58)
[2021-04-18] MEDS: THIAMINE 100 MG TABLET. PO SCH (08:58)
[2021-04-18] MEDS: FLUoxetine HCL 20 MG CAPSULE PO SCH (08:58)
--- NOTE | 2021-04-18 10:40 | NUR ---
SW following. Discussed with RN, pt from home with family, room air, regular diet. Pt wanting to be placed in detox. Per H&P pt was seen by Sean (JACKELINE) in the ER but no adult detox beds available at that time. SW awaiting confirmation from PAT team about next steps. SW requested COVID swab for possible placement. SW will continue to follow.
[2021-04-18 10:52] VITALS: BP 106/58
[2021-04-18] MEDS: VITAMIN B12,B9,B6 COMPLEX 1 TABLET. PO SCH (11:34)
--- NOTE | 2021-04-18 12:05 | PDOC2 ---
GI CONSULT Date of Service: DATE: 04/18/21 TIME: 11:42 Reason For Consult: colitis HPI: HPI: 40 y/o female who we've seen in the past. Chronic intermittent issues w/ abdominal pain (middle - mostly upper - constant w/ sharp/shooting pains that sometimes improves after stooling and is not obviously exacerbated by eating), diarrhea (recently small amounts of yellowish stool mixed with clumps - feels a lot of cramping without much result), and some n/v. This flare began Apr 15, possibly precipitated by heavy alcohol use (beer and fireball) for >1 week. Tolerated breakfast this morning and hasn't stooled today. Abdominal pain isn't as bad. 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 She was prescribes Augmentin for "colitis" which she did not fill because she felt so ill and couldn't get out of bed. H/o GERD improved w/ PPI (pantoprazole 40mg QD 1-1.5 hours before breakfast) - has terrible heartburn if she skips a couple doses. Feels hungry but gets full quickly. No dysphagia, hematemesis, constipation, or melena. Has seen a little red blood on toilet tissue and in stool this episode - attributed to excessive wiping/hemorrhoids. No weight loss. H/o IBS. In between these flares of pain and diarrhea, has "pretty normal" stools. EGD and colonoscopy for chronic heartburn and chronic diarrhea in 12/[address] Palmer showed healed probably low-grade reflux, non-specific antral erythema (antral biopsies w/ congestion and slight chronic inflammation, negative for H. pylori), small hiatal hernia, normal duodenum (normal random biopsy, no sprue), patchy areas of erythema in sigmoid (biopsy w/ "recent hemorrhage within lamina propria" - no infectious, ischemic, chronic destructive, or microscopic colitis) but otherwise normal mucosa, large diverticulum in proximal ascending colon, small internal hemorrhoids noted and random biopsies from cecum/ascending (negative for pathology) and rectum (path w/ incidental hyperplastic polyp). S/p cholecystectomy for large stones. Hepatic steatosis on CT. Viral hepatitis panel negative in 2017 and 2019. No pancreas or PUD history. Has quit drinking for as long as 3 years in the past - still had flares of GI symptoms. Takes ibuprofen "as much as I need to make the pain go away" during period every month. No recent antibiotic use. Has tried Colestid, Bentyl, Imodium, and possibly Lomotil in the past - never for very long. Also has Carafate at home - takes PRN, doesn't think helps much. B12 low this admission. Grieving of son (07/2020). PMH: PMH: anxiety/depression, vit D deficiency , cholecystectomy, tonsillectomy FH: Family History: Hypertension, Other (diverticulosis) Social History: Smoke: <1 pack per day ALCOHOL: heavy Drugs: None ROS: GEN: Denies fevers, chills, sweats HEENT: Denies blurred vision, sore throat CV: Denies chest pain RESP: Denies shortness of air, cough GI: Per HPI : Denies hematuria, dysuria ENDO: Denies weight changes NEURO: Denies confusion, dizziness MSK: Denies weakness, joint pain/swelling SKIN: Denies jaundice, pruritus Vitals: Vitals: Vital Signs Date Time Temp Pulse Resp B/P (MAP) Pulse Ox O2 Delivery O2 Flow Rate FiO2 04/18/21 11:35 Room Air 04/18/21 10:52 98.2 81 16 106/58 (74) 94 98.2 Labs: Labs: Laboratory Tests Test 04/17/21 14:40 04/17/21 14:49 04/17/21 16:30 Urine Collection Type Void Urine Color Dk yellow Urine Clarity Clear Urine pH 7.0 (<5.0-8.0) Urine Specific Alkol 1.020 (1.000-1.030) Urine Protein Negative mg/dL (NEG-TRACE) Urine Glucose (UA) Negative mg/dL (NEG) Urine Ketones (Stick) 15 mg/dL (NEG) Urine Blood Negative (NEG) Urine Nitrite Negative (NEG) Urine Bilirubin Small (NEG) Urine Urobilinogen Dipstick 0.2 mg/dL (0.2 mg/dL) Urine Leukocyte Esterase Moderate (NEG) Urine RBC Rare /HPF (0-2) Urine WBC 1-4 /HPF (0-4) Urine Squamous Epithelial Cells Many /LPF Urine Bacteria Many /HPF (0-FEW) Urine Opiates Screen Neg (NEG) Urine Methadone Screen Neg (NEG) Urine Barbiturates Neg (NEG) Urine Phencyclidine Screen Neg (NEG) Urine Amphetamine/Methamphetamine Neg (NEG) Urine Benzodiazepines Screen Pos (NEG) Urine Cocaine Screen Neg (NEG) Urine Cannabinoids Screen Neg (NEG) Urine Ethyl Alcohol Neg (NEG) Bedside Urine HCG, Qualitative Hcg negative (Negative) White Blood Count 5.9 x10^3/uL (4.0-11.0) Red Blood Count 4.24 x10^6/uL (3.50-5.40) Hemoglobin 12.2 g/dL (12.0-15.5) Hematocrit 36.1 % (36.0-47.0) Mean Corpuscular Volume 85 fL (79-100) Mean Corpuscular Hemoglobin 29 pg (25-35) Mean Corpuscular Hemoglobin Concent 34 g/dL (31-37) Red Cell Distribution Width 14.8 % (11.5-14.5) Platelet Count 197 x10^3/uL (140-400) Neutrophils (%) (Auto) 55 % (31-73) Lymphocytes (%) (Auto) 35 % (24-48) Monocytes (%) (Auto) 8 % (0-9) Eosinophils (%) (Auto) 1 % (0-3) Basophils (%) (Auto) 1 % (0-3) Neutrophils # (Auto) 3.2 x10^3/uL (1.8-7.7) Lymphocytes # (Auto) 2.1 x10^3/uL (1.0-4.8) Monocytes # (Auto) 0.5 x10^3/uL (0.0-1.1) Eosinophils # (Auto) 0.1 x10^3/uL (0.0-0.7) Basophils # (Auto) 0.0 x10^3/uL (0.0-0.2) Sodium Level 139 mmol/L (136-145) Potassium Level 3.4 mmol/L (3.5-5.1) Chloride Level 104 mmol/L (98-107) Carbon Dioxide Level 23 mmol/L (21-32) Anion Gap 12 (6-14) Blood Urea Nitrogen 7 mg/dL (7-20) Creatinine 0.7 mg/dL (0.6-1.0) Estimated GFR (Cockcroft-Gault) 91.8 BUN/Creatinine Ratio 10 (6-20) Glucose Level 78 mg/dL (70-99) Calcium Level 8.1 mg/dL (8.5-10.1) Total Bilirubin 0.5 mg/dL (0.2-1.0) Aspartate Amino Transf (AST/SGOT) 67 U/L (15-37) Alanine Aminotransferase (ALT/SGPT) 62 U/L (14-59) Alkaline Phosphatase 69 U/L (46-116) Total Protein 5.9 g/dL (6.4-8.2) Albumin 3.2 g/dL (3.4-5.0) Albumin/Globulin Ratio 1.2 (1.0-1.7) Lipase 59 U/L (73-393) Vitamin B12 Level 196 pg/mL (247-911) Salicylates Level < 2.8 mg/dL (2.8-20.0) Salicylate Last Dose Date Salicylate Last Dose Time Acetaminophen Level < 2 mcg/ml (10-30) Acetaminophen Last Dose Date Acetaminophen Last Dose Time Ethyl Alcohol Level < 10 mg/dL (0-10) Allergies: Coded Allergies: No Known Drug Allergies (Unverified , 12/20/18) Medications: Current Medications Medications (Trade) Dose Ordered Sig/Jeanie Route PRN Reason Start Time Stop Time Status Last Admin Dose Admin Sodium Chloride 1,000 ml @ 1,000 mls/hr 1X ONCE IV 04/17/21 15:30 04/17/21 16:29 DC 04/17/21 17:34 Ciprofloxacin/ Dextrose 200 ml @ 200 mls/hr 1X ONCE IV 04/17/21 15:30 04/17/21 16:29 DC 04/17/21 15:47 Lorazepam (Ativan Inj) 1 mg 1X ONCE IVP 04/17/21 15:30 04/17/21 15:31 DC 04/17/21 17:35 Morphine Sulfate (Morphine Sulfate) 4 mg 1X ONCE IVP 04/17/21 15:30 04/17/21 15:31 DC 04/17/21 17:38 Morphine Sulfate (Morphine Sulfate) 4 mg PRN Q2HR PRN IVP PAIN 04/17/21 17:30 04/18/21 17:29 04/18/21 11:35 Sodium Chloride 1,000 ml @ 100 mls/hr Q10H IV 04/17/21 18:15 04/18/21 05:41 Pantoprazole Sodium (Protonix) 40 mg BIDAC PO 04/17/21 21:00 04/18/21 05:40 Ascorbic Acid (Vitamin C) 500 mg DAILY PO 04/18/21 09:00 04/18/21 08:58 Acetaminophen/ Hydrocodone Bitart (Lortab 5/325) 2 tab PRN Q4HRS PRN PO MODERATE PAIN, SEVERE PAIN 04/17/21 18:15 04/18/21 05:40 Folic Acid (Folic Acid) 1 mg DAILY PO 04/18/21 09:00 04/18/21 08:58 Thiamine Mononitrate (Vitamin B-1) 100 mg DAILY PO 04/18/21 09:00 04/18/21 08:58 Lorazepam (Ativan) 4 mg PRN Q1HR PRN PO For CIWA 8-14 04/17/21 18:15 04/18/21 05:40 Lorazepam (Ativan) 8 mg PRN Q1HR PRN PO For CIWA 15 or greater 04/17/21 18:15 04/18/21 11:34 Lorazepam (Ativan Inj) 2 mg PRN Q1HR PRN IV For CIWA 8-14 04/17/21 18:15 04/18/21 03:19 Lorazepam (Ativan Inj) 4 mg PRN Q1HR PRN IV For CIWA 15 or greater 04/17/21 18:15 04/18/21 08:59 Fluoxetine HCl (PROzac) 40 mg DAILY PO 04/18/21 09:00 04/18/21 08:58 Trazodone HCl (Desyrel) 150 mg QHS PO 04/17/21 21:00 04/17/21 21:41 Cyanocobalamin (Vitamin B-12 Inj) 1,000 mcg 1X ONCE IM 04/18/21 06:00 04/18/21 06:01 DC 04/18/21 05:41 Vitamin B Complex (Folbic Tablet) 1 tab DAILY PO 04/18/21 11:00 04/18/21 11:34 Imaging: Imaging: per HPI PE: GEN: NAD HEENT: Atraumatic, PERRL LUNGS: CTAB HEART: RRR ABD: NABS, S/ND, non-specific mild discomfort periumbilical region EXTREMITY: No edema SKIN: No rashes, no jaundice NEURO/PSYCH: A & O 3 A/P: A/P: Recurrent abd pain and diarrhea (but no n/v this time), alcohol overuse Mildly elevated AST and ALT, B12 deficiency ?abnormal CT @ [facility] GERD, small hiatal hernia, early satiety IBS CRC screen - UTD (2019 - NO COLITIS) Diverticulosis, hemorrhoids S/p cholecystectomy Hepatic steatosis Dysmenorrhea on NSAIDs PRN - has seen [facility] here in the past Depression/grief -- H/o GERD and IBS probably aggravated by alcohol. Not convinced of "colitis" - will attempt to review CT w/ Dr. Palmer - okay to hold on antibiotics for now. Discussed optimal PPI dosing (30-45 min before breakfast). Okay to try BID dosing as already ordered. Okay to retry Carafate, Colestid, Bentyl, etc. PRN - happy to provide Rx for all on discharge. COVID pending. Could consider stool studies if diarrhea recurs. Okay to eat per GI. Probably should quit drinking. Will review any recommendations for additional GI workup with Dr. Palmer. She asks about possible angiomyolipoma on CT - defer to primary. JULISA VASQUEZ Apr 18, 2021 12:04
[2021-04-18] MEDS ORDERED: DICYCLOMINE HCL 10 MG CAPSULE PO PRN (12:15)
[2021-04-18] MEDS ORDERED: SUCRALFATE 1 GM TABLET. PO PRN (12:15)
[2021-04-18] MEDS ORDERED: COLESTIPOL HCL 1 GM TABLET PO PRN (12:15)
[2021-04-18] MEDS ORDERED: NICOTINE 21MG PATCH. TD PRN (14:15)
--- NOTE | 2021-04-18 14:16 | PDOC ---
[facility] PROGRESS NOTE Date of Service DOS: DATE: 04/18/21 TIME: 14:12 Chief Complaint Chief Complaint Abdominal pain, alcohol withdrawal History of Present Illness History of Present Illness 40 year old female with a history of alcoholism, anxiety, depression, drug a buse, who presents the ED today complaining of alcohol withdrawals and abdominal pain. Patient states she has had abdominal pain rated as moderate and sharp since yesterday. She states she was seen at [facility] yesterday and was diagnosed with colitis. She states she did not fill the prescription for Augmentin that was given to her. She is also complaining of diarrhea with nausea and vomiting. Denies anything specifically exacerbating or relieving her pain. She is also complaining of drinking alcohol since April 05, 2021 to yesterday. She states she would like help with alcohol use though she states she would like to be admitted to the hospital first to work-up her abdominal pain before she can go to alcohol detox facility. Apparently she was evaluated by Sean from the PAT team and stated to the patient that there is no bed open in any detox facility at this time. 04/18/21 Patient seen and examined at bedside. Admitted overnight for abdominal pain request for alcohol rehab. When evaluated still having some abdominal pain also having overall weakness. CT scan ordered, will consult GI as they are familiar with the patient. PET team consulted. Plan of care discussed with bedside RN. Vitals/I&O Vitals/I&O: Vital Signs Date Time Temp Pulse Resp B/P (MAP) Pulse Ox O2 Delivery O2 Flow Rate FiO2 04/18/21 14:11 Room Air 04/18/21 10:52 98.2 81 16 106/58 (74) 94 98.2 I & O 04/17/21 04/17/21 04/18/21 15:00 23:00 07:00 Intake Total 1400 ml 350 ml Balance 1400 ml 350 ml Physical Exam General: Alert, Oriented X3, Cooperative Heart: Regular rate, Normal S1, Normal S2 Lungs: Clear Abdomen: Other (Mild distention, diffusely tender) Extremities: Other (Lower extremity edema present) Skin: No rashes, No significant lesion Labs Labs: Laboratory Tests Test 04/17/21 14:40 04/17/21 14:49 04/17/21 16:30 Urine Collection Type Void Urine Color Dk yellow Urine Clarity Clear Urine pH 7.0 (<5.0-8.0) Urine Specific [place] 1.020 (1.000-1.030) Urine Protein Negative mg/dL (NEG-TRACE) Urine Glucose (UA) Negative mg/dL (NEG) Urine Ketones (Stick) 15 mg/dL (NEG) Urine Blood Negative (NEG) Urine Nitrite Negative (NEG) Urine Bilirubin Small (NEG) Urine Urobilinogen Dipstick 0.2 mg/dL (0.2 mg/dL) Urine Leukocyte Esterase Moderate (NEG) Urine RBC Rare /HPF (0-2) Urine WBC 1-4 /HPF (0-4) Urine Squamous Epithelial Cells Many /LPF Urine Bacteria Many /HPF (0-FEW) Urine Opiates Screen Neg (NEG) Urine Methadone Screen Neg (NEG) Urine Barbiturates Neg (NEG) Urine Phencyclidine Screen Neg (NEG) Urine Amphetamine/Methamphetamine Neg (NEG) Urine Benzodiazepines Screen Pos (NEG) Urine Cocaine Screen Neg (NEG) Urine Cannabinoids Screen Neg (NEG) Urine Ethyl Alcohol Neg (NEG) Bedside Urine HCG, Qualitative Hcg negative (Negative) White Blood Count 5.9 x10^3/uL (4.0-11.0) Red Blood Count 4.24 x10^6/uL (3.50-5.40) Hemoglobin 12.2 g/dL (12.0-15.5) Hematocrit 36.1 % (36.0-47.0) Mean Corpuscular Volume 85 fL (79-100) Mean Corpuscular Hemoglobin 29 pg (25-35) Mean Corpuscular Hemoglobin Concent 34 g/dL (31-37) Red Cell Distribution Width 14.8 % (11.5-14.5) Platelet Count 197 x10^3/uL (140-400) Neutrophils (%) (Auto) 55 % (31-73) Lymphocytes (%) (Auto) 35 % (24-48) Monocytes (%) (Auto) 8 % (0-9) Eosinophils (%) (Auto) 1 % (0-3) Basophils (%) (Auto) 1 % (0-3) Neutrophils # (Auto) 3.2 x10^3/uL (1.8-7.7) Lymphocytes # (Auto) 2.1 x10^3/uL (1.0-4.8) Monocytes # (Auto) 0.5 x10^3/uL (0.0-1.1) Eosinophils # (Auto) 0.1 x10^3/uL (0.0-0.7) Basophils # (Auto) 0.0 x10^3/uL (0.0-0.2) Sodium Level 139 mmol/L (136-145) Potassium Level 3.4 mmol/L (3.5-5.1) Chloride Level 104 mmol/L (98-107) Carbon Dioxide Level 23 mmol/L (21-32) Anion Gap 12 (6-14) Blood Urea Nitrogen 7 mg/dL (7-20) Creatinine 0.7 mg/dL (0.6-1.0) Estimated GFR (Cockcroft-Gault) 91.8 BUN/Creatinine Ratio 10 (6-20) Glucose Level 78 mg/dL (70-99) Calcium Level 8.1 mg/dL (8.5-10.1) Total Bilirubin 0.5 mg/dL (0.2-1.0) Aspartate Amino Transf (AST/SGOT) 67 U/L (15-37) Alanine Aminotransferase (ALT/SGPT) 62 U/L (14-59) Alkaline Phosphatase 69 U/L (46-116) Total Protein 5.9 g/dL (6.4-8.2) Albumin 3.2 g/dL (3.4-5.0) Albumin/Globulin Ratio 1.2 (1.0-1.7) Lipase 59 U/L (73-393) Vitamin B12 Level 196 pg/mL (247-911) Salicylates Level < 2.8 mg/dL (2.8-20.0) Salicylate Last Dose Date Salicylate Last Dose Time Acetaminophen Level < 2 mcg/ml (10-30) Acetaminophen Last Dose Date Acetaminophen Last Dose Time Ethyl Alcohol Level < 10 mg/dL (0-10) Review of Systems Review of Systems: Abdominal pain, weakness, otherwise negative` Assessment and Plan Assessmemt and Plan Problems Medical Problems: (1) Alcohol withdrawal Status: Acute (2) Intractable abdominal pain Status: Acute (3) Vomiting and diarrhea Status: Acute Assessment/Plan Acute EtOH withdrawal Acute abdominal pain due to alcohol misuse and history of GERD and recent colitis B12 deficiency Moderate protein malnutrition Mild hypokalemia History of alcohol abuse Admit to hospital service for further management Continue inpatient detox [place] protocol Continue Protonix will increase to 40 mg twice daily GI consulted Vitamin B12 intramuscular shot daily Continue IV fluids IV electrolyte replacement as needed SCD and ambulation for DVT prophylaxis Continue Protonix GI prophylaxis ADA diet Full code Discussed with RN and SW Disposition inpatient management as above Surrogate decision maker is Ally Villegas Comment Review of Relevant I have reviewed the following items ravinder (where applicable) has been applied. Medications: Current Medications Medications (Trade) Dose Ordered Sig/Jeanie Route PRN Reason Start Time Stop Time Status Last Admin Dose Admin Sodium Chloride 1,000 ml @ 1,000 mls/hr 1X ONCE IV 04/17/21 15:30 04/17/21 16:29 DC 04/17/21 17:34 Ciprofloxacin/ Dextrose 200 ml @ 200 mls/hr 1X ONCE IV 04/17/21 15:30 04/17/21 16:29 DC 04/17/21 15:47 Lorazepam (Ativan Inj) 1 mg 1X ONCE IVP 04/17/21 15:30 04/17/21 15:31 DC 04/17/21 17:35 Morphine Sulfate (Morphine Sulfate) 4 mg 1X ONCE IVP 04/17/21 15:30 04/17/21 15:31 DC 04/17/21 17:38 Morphine Sulfate (Morphine Sulfate) 4 mg PRN Q2HR PRN IVP PAIN 04/17/21 17:30 04/18/21 17:29 04/18/21 11:35 Sodium Chloride 1,000 ml @ 100 mls/hr Q10H IV 04/17/21 18:15 04/18/21 05:41 Pantoprazole Sodium (Protonix) 40 mg BIDAC PO 04/17/21 21:00 04/18/21 05:40 Ascorbic Acid (Vitamin C) 500 mg DAILY PO 04/18/21 09:00 04/18/21 08:58 Acetaminophen/ Hydrocodone Bitart (Lortab 5/325) 2 tab PRN Q4HRS PRN PO MODERATE PAIN, SEVERE PAIN 04/17/21 18:15 04/18/21 14:11 Folic Acid (Folic Acid) 1 mg DAILY PO 04/18/21 09:00 04/18/21 08:58 Thiamine Mononitrate (Vitamin B-1) 100 mg DAILY PO 04/18/21 09:00 04/18/21 08:58 Lorazepam (Ativan) 4 mg PRN Q1HR PRN PO For CIWA 8-14 04/17/21 18:15 04/18/21 05:40 Lorazepam (Ativan) 8 mg PRN Q1HR PRN PO For CIWA 15 or greater 04/17/21 18:15 04/18/21 11:34 Lorazepam (Ativan Inj) 2 mg PRN Q1HR PRN IV For CIWA 8-14 04/17/21 18:15 04/18/21 03:19 Lorazepam (Ativan Inj) 4 mg PRN Q1HR PRN IV For CIWA 15 or greater 04/17/21 18:15 04/18/21 08:59 Fluoxetine HCl (PROzac) 40 mg DAILY PO 04/18/21 09:00 04/18/21 08:58 Trazodone HCl (Desyrel) 150 mg QHS PO 04/17/21 21:00 04/17/21 21:41 Cyanocobalamin (Vitamin B-12 Inj) 1,000 mcg 1X ONCE IM 04/18/21 06:00 04/18/21 06:01 DC 04/18/21 05:41 Vitamin B Complex (Folbic Tablet) 1 tab DAILY PO 04/18/21 11:00 04/18/21 11:34 Dicyclomine HCl (Bentyl) 10 mg PRN QID PRN PO ABDOMINAL CRAMPS 04/18/21 12:15 04/18/21 14:11 Sucralfate (Carafate) 1 gm BIDAC PRN PO abd pain 04/18/21 12:15 04/18/21 14:11 Nicotine (Nicoderm Cq 21mg) 1 patch PRN DAILY PRN TD SMOKING CESSATION 04/18/21 14:15 04/18/21 14:11 Justifications for Admission Other Justification Alcohol withdrawal SARWAT TURNER MD Apr 18, 2021 14:16
[2021-04-18 15:00] VITALS: BP 153/93
[2021-04-18 19:00] VITALS: BP 118/86
[2021-04-18] MEDS: traZODone 50 MG TABLET. PO SCH (21:03)
[2021-04-18 23:00] VITALS: BP 107/71
[2021-04-19] MEDS: HYDROcodone/APAP 5/325MG 1 TAB TABLET PO PRN ×3 (02:35→09:25)
[2021-04-19 03:00] VITALS: BP 116/77
[2021-04-19] MEDS: IV NORMAL SALINE 1000ML BAG 1,000 ML IV SCH (06:57)
[2021-04-19 07:00] VITALS: BP 154/100
[2021-04-19] MEDS: ASCORBIC ACID 500 MG TABLET PO SCH (09:19)
[2021-04-19] MEDS: FLUoxetine HCL 20 MG CAPSULE PO SCH (09:19)
[2021-04-19] MEDS: THIAMINE 100 MG TABLET. PO SCH (09:20)
[2021-04-19] MEDS: VITAMIN B12,B9,B6 COMPLEX 1 TABLET. PO SCH (09:20)
[2021-04-19] MEDS: PANTOPRAZOLE 40 MG TABLET.DR. PO SCH (09:20)
[2021-04-19] MEDS: FOLIC ACID 1 MG TABLET. PO SCH (09:20)
[2021-04-19] MEDS ORDERED: PANT40TA77 PO (09:32)
[2021-04-19] MEDS ORDERED: COLE1TAB PO (09:32)
[2021-04-19] MEDS ORDERED: SUCR1TAB35 PO (09:32)
[2021-04-19] MEDS ORDERED: DICY10CA3 PO (09:32)
--- NOTE | 2021-04-19 09:35 | PDOC3 ---
[facility]-Discharge Summary Date of Admission: Date of Admission: Apr 17, 2021 Date of Discharge: Date of Discharge: Apr 19, 2021 Admission Diagnosis: Problems: (1) Intractable abdominal pain (2) Alcohol withdrawal (3) Vomiting and diarrhea Consults: Consults: GI, PAT Hospital Course: Hospital Course: History of Present Illness 40 year old female with a history of alcoholism, anxiety, depression, drug abuse, who presents the ED today complaining of alcohol withdrawals and abdominal pain. Patient states she has had abdominal pain rated as moderate and sharp since yesterday. She states she was seen at [facility] yesterday and was diagnosed with colitis. She states she did not fill t he prescription for Augmentin that was given to her. She is also complaining of diarrhea with nausea and vomiting. Denies anything specifically exacerbating or relieving her pain. She is also complaining of drinking alcohol since April 05, 2021 to yesterday. She states she would like help with alcohol use though she states she would like to be admitted to the hospital first to work-up her abdominal pain before she can go to alcohol detox facility. Apparently she was evaluated by Sean from the PAT team and stated to the patient that there is no bed open in any detox facility at this time. 04/18/21 Patient seen and examined at bedside. Admitted overnight for abdominal pain request for alcohol rehab. When evaluated still having some abdominal pain also having overall weakness. CT scan ordered, will consult GI as they are familiar with the patient. PET team consulted. Plan of care discussed with bedside RN. 04/19/21 Patient seen and examined at bedside. Says abdominal pain improving. She has been accepted at [facility]. Discharge today. Disposition: Disposition/Orders: D/C to Home Activity: Activity: Resume previous activity Diet: Diet: Regular Medications: Home Meds Active Scripts Pantoprazole Sodium (PANTOPRAZOLE SODIUM ) 40 Mg Tablet.dr, 40 MG PO BIDAC for gerd, #90 TAB.SR Prov:SARWAT TURNER MD 04/19/21 Sucralfate (CARAFATE) 1 Gm Tablet, 1 GM PO BIDAC PRN for abd pain, #90 TAB Prov:SARWAT TURNER MD 04/19/21 Colestipol Hcl (COLESTID) 1 Gm Tablet, 1 GM PO PRN Q24HRS PRN for diarrhea, #90 TAB Prov:SARWAT TURNER MD 04/19/21 Dicyclomine Hcl (DICYCLOMINE HCL) 10 Mg Capsule, 10 MG PO PRN QID PRN for ABDOMINAL CRAMPS, #90 CAP Prov:SARWAT TURNER MD 04/19/21 Reported Medications Levonorgestrel-Eth Estradiol (AVIANE) 1 Each Tablet, 1 TAB PO DAILY for , #28 TAB 11 Refills 04/09/21 Trazodone Hcl (TRAZODONE HCL) 150 Mg Tablet, 1 TAB PO QHS for for 30 Days, #30 TAB 0 Refills 04/09/21 Clonazepam (KLONOPIN) 1 Mg Tablet, 1 TAB PO TID for , #90 TAB 1 Refill 04/09/21 Fluoxetine Hcl (PROZAC) 40 Mg Capsule, 1 CAP PO DAILY for , #30 CAP 3 Refills 01/04/20 Discontinued Reported Medications Pantoprazole Sodium (PROTONIX ) 40 Mg Tablet.dr, 40 MG PO DAILYAC for GERD, TAB 01/04/20 Scheduled Clonazepam (Klonopin), 1 TAB PO TID, (Reported) Fluoxetine Hcl (Prozac), 1 CAP PO DAILY, (Reported) Levonorgestrel-Eth Estradiol (Aviane), 1 TAB PO DAILY, (Reported) Pantoprazole Sodium (Pantoprazole Sodium ), 40 MG PO BIDAC Trazodone Hcl (Trazodone Hcl), 1 TAB PO QHS, (Reported) Scheduled PRN Colestipol Hcl (Colestid), 1 GM PO PRN Q24HRS PRN for diarrhea Dicyclomine Hcl (Dicyclomine Hcl), 10 MG PO PRN QID PRN for ABDOMINAL CRAMPS Sucralfate (Carafate), 1 GM PO BIDAC PRN for abd pain Discontinued Medications Pantoprazole Sodium (Protonix ), 40 MG PO DAILYAC, (Reported) Justicifation of Admission Dx: Justifications for Admission: Justification of Admission Dx: Yes SARWAT TURNER MD Apr 19, 2021 09:35
--- NOTE | 2021-04-19 10:07 | PDOC ---
Date of Service: DATE: 04/19/21 TIME: 10:05 Subjective: Subjective: Feeling good, going to [facility] today. GI symptoms improved. Objective: Vital Signs: Vital Signs Date Time Temp Pulse Resp B/P (MAP) Pulse Ox O2 Delivery O2 Flow Rate FiO2 04/19/21 07:00 97.5 78 16 154/100 (118) 97 Room Air 97.5 Labs: Laboratory Tests Test 04/18/21 13:31 SARS-CoV-2 Antigen (Rapid) Negative PE: GEN: NAD LUNGS: CTAB HEART: RRR ABD: NABS, S/ND/NT NEURO/PSYCH: A & O 3 A/P: Recurrent abd pain and diarrhea - improved - h/o GERD and IBS, alcohol overuse -- DC per primary. Continue PPI, try FiberCon OTC (start QOD). Justicifation of Admission Dx: Justifications for Admission: Justification of Admission Dx: Yes JULISA VASQUEZ Apr 19, 2021 10:07
--- NOTE | 2021-04-19 10:40 | NUR ---
SW following. Discussed with RN, discharge order for home with self care. Pt discharging home to pack a bag and then go to [facility] for ETOH treatment. RN advised no SW needs.
--- NOTE | 2021-04-19 11:46 | NUR ---
Pt discharged to [facility]. Pt was transported home by facility transportation at 1100
== END 2021-04-19 11:00 | disposition home or self-care (01) | DRG 392 ==
LOC: ER 13:10 → EEVIPCON 13:10 → 4 NORTH 17:08 → ER 19:34
PROVIDERS: ADMIT Internal Medicine; ATTEND Internal Medicine
DX: K52.9 Noninfective gastroenteritis and colitis, unspecified (principal); F10.239 Alcohol dependence with withdrawal, unspecified; E44.0 Moderate protein-calorie malnutrition; D17.71 Benign lipomatous neoplasm of kidney; E55.9 Vitamin D deficiency, unspecified; E87.6 Hypokalemia; F17.210 Nicotine dependence, cigarettes, uncomplicated; F32.9 Major depressive disorder, single episode, unspecified; F41.9 Anxiety disorder, unspecified; K21.9 Gastro-esophageal reflux disease without esophagitis; K64.8 Other hemorrhoids; K76.0 Fatty (change of) liver, not elsewhere classified; Z82.49 Family history of ischemic heart disease and other diseases of the circulatory system; Z90.49 Acquired absence of other specified parts of digestive tract; Z20.822 Contact with and (suspected) exposure to COVID-19
CPT/HCPCS: 36415; 80053; 80307; 80329; 81001; 81025; 82607; 83690; 85025; 87086; 87426; G0480; J0744; J2060; J2270; J3420; J7030; U0003; U0005; G0378

== ENCOUNTER → 2021-06-19 | Outpatient (CLI) | payer OTHER ==
[~2021-06-19] MED LIST changes: +COLE1TAB PO; +DICY10CA3 PO
== END ==
LOC: LAB 17:15
PROVIDERS: ATTEND Internal Medicine Pulmonary Disease
DX: Z20.822 Contact with and (suspected) exposure to COVID-19 (principal)
CPT/HCPCS: U0003; U0005

== ENCOUNTER → 2021-07-02 | Outpatient (CLI) | payer OTHER ==
--- NOTE | 2021-07-02 11:35 | RAD ---
Bilateral digital screening mammogram to include digital breast tomosynthesis (3-D mammography) 07/02 CLINICAL HISTORY: Screening study. Digital MLO and CC mammograms of both breasts were obtained. Additionally digital breast tomosynthesi s images (3-D mammography) of both breasts in the CC and MLO projections were obtained. This is the patient's baseline mammogram. The breast parenchyma is composed of scattered fibronodular densities which can obscure a lesion on m ammography (breast density B). No spiculated mass is seen. No malignant appearing calcification or ar ea of architectural distortion is noted. Digital breast tomosynthesis images demonstrate no spiculated mass. No malignant appearing calcificat ion is seen. Impression: BI-RADS Category 1: Negative. There is no mammographic evidence of malignancy. Routine y early screening mammography is recommended for follow-up. This examination was reviewed with the aid of computer-aided detection. A mammogram does not have 100% sensitivity and therefore a negative imaging study should not delay fu rther work up of a suspicious abnormality. Patient information is entered into the reminder system with a target due date for the next screening mammogram of 07/02/2022. "Our facility is accredited by the [employer] Mammography Program." Electronically signed by: Akil Pete MD (07/02/2021 11:32 AM) [facility]
== END ==
LOC: MAMMO 07:46
PROVIDERS: ATTEND Family Medicine
DX: Z12.31 Encounter for screening mammogram for malignant neoplasm of breast (principal)
CPT/HCPCS: 77063; 77067

== ENCOUNTER 2021-08-29 17:29 | Emergency (ER) | payer OTHER ==
[~2021-08-29] VITALS: Ht 175.3 cm; Wt 109.0 kg
[2021-08-29 18:39] VITALS: BP 118/86
--- NOTE | 2021-08-29 18:39 | PHYS DOC ---
Past Medical History Past Medical History: Alcoholism, Anxiety, Depression, GERD, UTI Past Surgical History: Cholecystectomy, Smoking Status: Current Every Day Smoker Alcohol Use: Heavy Drug Use: None General Adult EDM: Chief Complaint: FLU SYMPTOM HPI: HPI: Patient is a 40 year old who presents with 1 day history of nonproductive cough, congestion, intermittent wheezing. She does have a history of wheezing, has a rescue inhaler. She is not out of this, has plenty at home. She wondered if she had bronchitis. She denies any nausea or vomiting, constipation, diarrhea, abdominal pain, chest pain, dyspnea. She denies hemoptysis or sputum production. No known sick contacts. She has not been vaccinated against COVID- 19. 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 Review of Systems: Review of Systems: Constitutional: Denies fever or chills. [] HENT: Nasal congestion and rhinorrhea. Denies sore throat. Respiratory: Reports dry cough and wheezing, occasional mild shortness of breath with wheezing only Cardiovascular: Denies chest pain or edema. [] GI: Denies abdominal pain, nausea, vomiting Musculoskeletal: Denies back pain or joint pain. [] Integument: Denies rash. [] Neurologic: Denies headache, focal weakness or sensory changes. [] ] Psychiatric: Denies depression or anxiety. [] Heart Score: C/O Chest Pain: No Risk Factors: Risk Factors: DM, Current or recent (<one month) smoker, HTN, HLP, family history of CAD, obesity. Risk Scores: Score 0 - 3: 2.5% MACE over next 6 weeks - Discharge Home Score 4 - 6: 20.3% MACE over next 6 weeks - Admit for Clinical Observation Score 7 - 10: 72.7% MACE over next 6 weeks - Early Invasive Strategies Allergies: Allergies: Allergies Coded Allergies Type Severity Reaction Last Updated Verified No Known Drug Allergies 12/20/18 No Physical Exam: PE: Constitutional: Well developed, well nourished, no acute distress, non-toxic appearance. [] HENT: Normocephalic, atraumatic, oropharynx is patent and clear, mucous membranes are moist. TMs are clear bilaterally. Nares are patent. Eyes: Clear are clear and anicteric Neck: Normal range of motion, no tenderness, supple, no stridor. Trachea is midline Cardiovascular:Heart rate regular rhythm, well-perfused appearing, +2 radial pulses bilaterally Lungs & Thorax: Bilateral breath sounds clear to auscultation, no rales, rhonchi or wheezes. No stridor. No distress. Skin: Warm, dry, no erythema, no rash. [] Extremities: No tenderness, no cyanosis, no clubbing, ROM intact, no edema. No calf tenderness. Neurologic: Alert and oriented X 3, normal motor function, normal sensory function, no focal deficits noted. [] Psychologic: Affect normal, judgement normal, mood normal. [] EKG: EKG: [] Radiology/Procedures: Radiology/Procedures: [] Course & Med Decision Making: Course & Med Decision Making Pertinent Labs and Imaging studies reviewed. (See chart for details) I discussed the findings, differential diagnosis and plan of care with her. No indication for antibiotics or further invasive exams at this time based on current clinical presentation. I recommend smoking cessation. If she still has symptoms in the next several days, she will require repeat Covid testing. Strict return precautions are given. She is comfortable with the plan for discharge home. [employer] Disclaimer: [employer] Disclaimer: This electronic medical record was generated, in whole or in part, using a voice recognition dictation system. Departure Departure Impression: Primary Impression: Cough Additional Impression: Upper respiratory infection Disposition: 01 HOME / SELF CARE / HOMELESS Condition: STABLE Referrals: CHANDRA COX MD (PCP) Patient Instructions: Upper Respiratory Infection, Adult Additional Instructions: You may continue taking [id number]-soc-rpzhnbo cough and cold medications. You may continue taking your albuterol as needed. You may take Tylenol or ibuprofen for pain or discomfort. If your symptoms persist, you may need a repeat swab in the next 3 to 5 days, as Covid may still be a possibility. Your antigen test is negative here today, your rapid influenza test is negative. In about 24 hours, your PCR Covid swab should return. Return to the ER for severe chest pain, severe shortness of breath, uncontrolled vomiting, dehydration or any other concerns. GERMAN MORGAN DO Aug 29, 2021 18:39
--- NOTE | 2021-08-29 19:13 | RAD ---
EXAM: AP View of the chest DATE: 08/29/2021 7:08 PM INDICATION: Reason: cough / Spl. Instructions: / History: COMPARISON: No Prior FINDINGS: The heart is not enlarged. Mediastinal and hilar contours are normal. No focal parenchymal airspace opacity. No pleural effusion or pneumothorax. Changes of old/healed right clavicle fracture. IMPRESSION: 1. No radiographic evidence for acute cardiopulmonary process. Electronically signed by: Jace Sousa MD (08/29/2021 7:11 PM) MELISSA
[2021-08-29 19:20] LABS: INFLUENZA A PATIENT NEGATIVE (NEGATIVE); INFLUENZA B PATIENT NEGATIVE (NEGATIVE)
--- NOTE | 2021-08-30 11:39 | NUR ---
IP: Attempted to contact pt concerning covid results. No answer, left a voicemail to return the call. Addendum: 08/30/21 at 1428 by ROHINI HUTSON RN Pt returned my call. Informed her of the negative covid test. Pt verbalized understanding.
== END 2021-08-29 19:55 | disposition home or self-care (01) ==
LOC: ER 17:29
DX: J06.9 Acute upper respiratory infection, unspecified (principal); Z20.822 Contact with and (suspected) exposure to COVID-19; K21.9 Gastro-esophageal reflux disease without esophagitis; F17.200 Nicotine dependence, unspecified, uncomplicated; F10.20 Alcohol dependence, uncomplicated; Y90.9 Presence of alcohol in blood, level not specified
CPT/HCPCS: 71045; 87426; 87804; 99284; U0003; U0005; 99283

== ENCOUNTER → 2021-09-14 | Outpatient (CLI) | payer OTHER ==
[2021-08-29 18:39] VITALS: BP 118/86
== END ==
LOC: ER 09:44
PROVIDERS: ATTEND Internal Medicine Pulmonary Disease
DX: U07.1 COVID-19 (principal); R43.8 Other disturbances of smell and taste; R51.9 Headache, unspecified; R19.7 Diarrhea, unspecified; R09.81 Nasal congestion; R53.81 Other malaise
CPT/HCPCS: U0003; U0005

== ENCOUNTER 2021-11-17 13:32 | Emergency (ER) | payer OTHER ==
[~2021-11-17] VITALS: Ht 175.3 cm; Wt 109.0 kg
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
[2021-11-17] MEDS ORDERED: IV NORMAL SALINE 1000ML BAG 1,000 ML IV ONE (14:30)
[2021-11-17] MEDS ORDERED: ACETAMINOPHEN/CODEINE 300/30MG TABLET. PO ONE (14:30)
[2021-11-17 15:18] LABS: BILIRUBIN,URINE NEGATIVE (NEG); CLARITY,URINE CLEAR; COLOR,URINE YELLOW; NITRITE,URINE NEGATIVE (NEG); PH,URINE 6.5 (<5.0-8.0); PROTEIN,URINE NEGATIVE (NEG-TRACE); UROBILINOGEN,URINE 0.2 mg/dL (0.2 mg/dL)
[2021-11-17 15:19] LABS: BACTERIA,URINE FEW /HPF (0-FEW); RBC,URINE OCC /HPF (0-2)
[2021-11-17 15:24] LABS: BARBITURATES NEG (NEG); BENZODIAZEPINES NEG (NEG); CANNABINOIDS NEG (NEG); COCAINE NEG (NEG); METHADONE NEG (NEG); OPIATES NEG (NEG); PHENCYCLIDINE NEG (NEG)
[2021-11-17 15:29] LABS: AMPHETAMINE/METHAMPHETAMINE NEG (NEG)
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
[2021-11-17] MEDS ORDERED: fentaNYL PF VIAL 100 MCG/2 ML VIAL IVP ONE (16:15)
[2021-11-17 17:00] VITALS: BP 138/94
[2021-11-17] MEDS ORDERED: IBUP-1060 PO (17:10)
[2021-11-17] MEDS ORDERED: SODI30SP NS (17:10)
== END 2021-11-17 17:19 | disposition home or self-care (01) ==
LOC: EEVIPCON 13:32 → ER 13:32
DX: S02.401A Maxillary fracture, unspecified side, initial encounter for closed fracture (principal); S02.85XA Fracture of orbit, unspecified, initial encounter for closed fracture; K21.9 Gastro-esophageal reflux disease without esophagitis; F17.200 Nicotine dependence, unspecified, uncomplicated; Y08.89XA Assault by other specified means, initial encounter; Y93.89 Activity, other specified; Y92.89 Other specified places as the place of occurrence of the external cause; Y99.8 Other external cause status
CPT/HCPCS: 36415; 70450; 70486; 72125; 80307; 81001; 81025; 96361; 96374; 99285; G0480; J3010; J7030